=== PATIENT | female | born 1960 | race Caucasian/White ===

== ENCOUNTER 2022-10-04 11:17 | Inpatient (IN) | payer BC ==
[2022-10-04] VITALS (10 sets, daily range): BP systolic 102–137; BP diastolic 52–95
[~2022-10-04] VITALS: Ht 170.2 cm; Wt 146.3 kg
[2022-10-04] MEDS ORDERED: LEVOTHYROXINE137 MCG PO (12:13)
[2022-10-04] MEDS ORDERED: NAPROXEN500 MG PO (12:13)
[2022-10-04] MEDS ORDERED: VENTOLIN HFA18 GM INH (12:13)
[2022-10-04] MEDS ORDERED: PIOGLITAZONE HC45 MG PO (12:14)
[2022-10-04] MEDS ORDERED: TRELEGY ELLIPT1 EACH INH (12:15)
[2022-10-04] MEDS ORDERED: HYDROCHLOROTHIA25 MG PO (12:15)
[2022-10-04] MEDS ORDERED: ROSUVASTATIN CA20 MG PO (12:15)
[2022-10-04] MEDS ORDERED: PREGABALIN150 MG PO (12:15)
[2022-10-04] MEDS ORDERED: METFORMIN HCL1000 MG PO (12:16)
[2022-10-04] MEDS ORDERED: TRULICITY1.5 MG/0.5 SQ (12:16)
--- NOTE | 2022-10-04 21:33 | EKG ---
[facility] [address] [facility] [place] [address] Signed Atrial fibrillation with rapid ventricular response with premature ventricular or aberrantly conducted complexes Abnormal ECG No previous ECGs available Confirmed by Albina Hilliard MD () on 10/04/2022 9:32:54 PM Electronically Signed By: ALBINA HILLIARD MD 10/04/222132 PATIENT NAME: JENNA MACKENZIE MARTA Electrocardiogram DATE OF : 62 PHYSICIAN: ALBINA HILLIARD MD REPORT #: [id number] REPORT IS CONFIDENTIAL AND NOT TO BE RELEASED WITHOUT AUTHORIZATION
[2022-10-05] VITALS (17 sets, daily range): BP systolic 107–158; BP diastolic 51–92
[2022-10-06] VITALS (27 sets, daily range): BP systolic 121–162; BP diastolic 59–97
[2022-10-07] VITALS (11 sets, daily range): BP systolic 115–163; BP diastolic 58–104
[2022-10-08] VITALS (9 sets, daily range): BP systolic 103–141; BP diastolic 57–94
[2022-10-09] VITALS (8 sets, daily range): BP systolic 97–137; BP diastolic 53–99
--- NOTE | 2022-10-09 08:04 | CONS ---
[facility] [address] [place], [place] [address] Signed DATE OF CONSULTATION: REQUESTING PHYSICIAN: Dr. Fernandez. PROBLEM: Hematochezia related to hemorrhoids, recent anticoagulation (Eliquis). HISTORY: This is a quite morbidly obese (BMI 50.7) white woman, is on the hospitalist service. She presented initially on October 04, 2022, with symptoms concordant to congestive heart failure. She was admitted by Dr. Mike Michel. Her issue was shortness of breath. She had had worsening over the previous week. She has known history of COPD and has 4 L nasal cannula oxygen requirement at all times at home. She has been in intensive care unit for her management thus far. Care was over taken by Dr. Fernandez on October 06. She was noted to have occasional tachyarrhythmias, anxiety, difficulty breathing, and desaturations. She had a low-normal ejection fraction of 55%, minimal valvular disease and minimal pulmonary hypertension. She has improved overall since admission. She was initiated on Eliquis, blood thinner, for underlying atrial fibrillation. She has had episodic rectal bleeding prior to this, but had significant hematochezia since initiation of the Eliquis. Consultation is undertaken on the basis of findings of prolapsing hemorrhoids and rectal bleeding. The patient has no evidence of hypotension related to bleeding. It has certainly been significant thus far. She was previously on Lovenox. Transfusion has been outlined to be undertaken as her hematocrit is 24.5. Her platelet count is normal at 207,000. She has no certain family history of colon cancer; she underwent colonoscopy in [place] several years ago and was said to have had 7 polyps at that time. She has had no hematemesis, it is noted. Concern has been maintained as to the significance of her hemorrhoids and management of them as regard to rectal bleeding. REVIEW OF SYSTEMS: She denies any current pain on defecation nor with wiping. Does have some discomfort, she notes. She has no abdominal pain. PHYSICAL EXAMINATION: A very morbidly obese white woman, who is pleasant, alert, and oriented. Heart rate is 112, atrial fibrillation is noted on monitor. Temperature is 98.1. Blood pressure 103/88. She shows no evidence of overt shortness of breath at this time. No tachypnea. Electronically Signed By: EVELINE GAN MD 10/09/22 0804 PATIENT NAME: JENNA MACKENZIE MARTA CONSULTATION DATE OF : 62 REPORT #: [id number] PHYSICIAN: EVELINE GAN MD PCP: LUANA YOUNG MD REPORT IS CONFIDENTIAL AND NOT TO BE RELEASED WITHOUT AUTHORIZATION [facility] [address] [place], [place] [address] Signed Abdomen is quite obese. In the lateral decubitus position with left side down, examination of perineum shows prolapsing hemorrhoidal tissue. The most obvious plexus with likely bleeding is a posterolateral hemorrhoidal complex. With steady pressure, reduction of her hemorrhoidal tissue was undertaken, which was mildly uncomfortable but ultimately tolerated well. Her current lab studies show a white count of 6.3, hematocrit 24.5, platelets 207,000. Her admission hematocrit was 28.7. ASSESSMENT: The patient has hematochezia likely related to prolapsing, ulcerated hemorrhoidal disease. She clearly has had polyps in the past on colonoscopy a few years ago. The possibility of a more proximal lesion accounting for hematochezia must be considered. I have advised Dr. Fernandez to discontinue her Eliquis anticoagulation for the time being. Ultimately, hemorrhoidal resection would be beneficial to allow for chronic anticoagulation related to her atrial fibrillation. In the meantime, however, avoidance of exsanguination from anticoagulation and hemorrhoidal bleeding would be more appropriate. Consideration will be made for colonoscopy and if negative, proceeding to hemorrhoidectomy in the near future. For the time being, we will withhold Eliquis and other anticoagulants. She will proceed with transfusion as planned. Within 3 days, the effect of Eliquis should be abated enough that intervention could be undertaken. This would include possibly colonoscopy before that time and operative hemorrhoidectomy after that timeframe. Discussed with her in detail. I believe that she would be reasonably be well served by a regional anesthetic rather than general anesthesia considering her underlying comorbidities of CHF and morbid obesity. Eveline Gan MD JM/MODL /[id number] cc: Trae Fernandez MD Electronically Signed By: EVELINE GAN MD 10/09/22 0804 PATIENT NAME: JENNA MACKENZIE MARTA CONSULTATION DATE OF : 62 REPORT #: [id number] PHYSICIAN: EVELINE GAN MD PCP: LUANA YOUNG MD REPORT IS CONFIDENTIAL AND NOT TO BE RELEASED WITHOUT AUTHORIZATION [address] [address] Signed Luana Young MD Copies: TRAE FERNANDEZ MD ~ Electronically Signed By: EVELINE GAN MD 10/09/22 0804 PATIENT NAME: JENNA MACKENZIE MARTA CONSULTATION DATE OF : 62 REPORT #: [id number] PHYSICIAN: EVELINE GAN MD PCP: LUANA YOUNG MD REPORT IS CONFIDENTIAL AND NOT TO BE RELEASED WITHOUT AUTHORIZATION
[2022-10-10 04:00] VITALS: BP 143/90
[2022-10-10 07:46] VITALS: BP 134/64
[2022-10-10 12:15] VITALS: BP 125/87
[2022-10-10 16:14] VITALS: BP 141/69
[2022-10-10 23:51] VITALS: BP 118/67
[2022-10-11 03:03] VITALS: BP 106/56
[2022-10-11 11:59] VITALS: BP 121/62
[2022-10-11 13:54] VITALS: BP 126/67
[2022-10-11 16:35] VITALS: BP 137/68
[2022-10-11 17:31] VITALS: BP 132/63
[2022-10-11 21:12] VITALS: BP 118/66
[2022-10-12 05:35] VITALS: BP 127/84
[2022-10-12 09:16] VITALS: BP 110/65
--- NOTE | 2022-10-12 10:23 | OR ---
[facility] [address] [place], [place] [address] Signed DATE OF OPERATION: 10/11/2022 SURGEON: Eveline Gan MD PREOPERATIVE DIAGNOSES: 1. Recent hematochezia secondary to grade 4 hemorrhoidal disease. 2. History of polyps of colon. 3. Recent admission to hospital related to atrial fibrillation with rapid ventricular response and long-standing home oxygen (4 L nasal cannula) requirement. POSTOPERATIVE DIAGNOSES: 1. Diverticulosis. 2. Polyps x2. 3. Grade 4 hemorrhoidal disease. PROCEDURE: Total colonoscopy to the cecum with cold morcellation polypectomy x2. ANESTHESIA: Intravenous sedation, propofol infusion, Ravindra Mata CRNA. INDICATION: This quite morbidly obese 61-year-old white woman presented to the emergency room and was evaluated and admitted on October 04, 2022 with acute hypoxic respiratory failure related to [id number] diastolic congestive heart failure. She has home oxygen requirement of 4 L nasal cannula. She was started on Eliquis as part of her atrial fibrillation treatment and had rather significant hematochezia. She was found to have hemorrhoidal disease. She was discontinued on her Eliquis and her Eliquis effect has presumably abated over the past two days. She is now to undergo colonoscopy to better characterize the more proximal colon, mindful that her bleeding was most likely related to grade 4 hemorrhoidal problems. The risk of bleeding, infection, anesthetic complications and so forth were reviewed with her, she understands and wished to proceed. FINDINGS: The prep was quite excellent. Complete colonoscopy was undertaken of the cecum without question. She had scattered diverticula of the sigmoid and left colon. There were two small polyps, possibly hyperplastic, both excised, one in the sigmoid and one in the rectosigmoid. Retroflexed view and direct examination did show grade 4 hemorrhoidal disease without active bleeding at this time. Electronically Signed By: EVELINE GAN MD 10/12/22 1023 PATIENT NAME: JENNA MACKENZIE OPERATIVE REPORT DATE OF : 62 REPORT #: [id number] PHYSICIAN: EVELINE GAN MD PCP: KIERAN YOUNG MD REPORT IS CONFIDENTIAL AND NOT TO BE RELEASED WITHOUT AUTHORIZATION [facility] [address] [place], [place] [address] Signed DESCRIPTION OF PROCEDURE: The patient was brought to the endoscopy suite and placed in the lateral decubitus position, given intravenous sedation with propofol infusional technique with full cardiopulmonary monitoring. Great care was taken given her underlying multiple significant comorbidities. Digital rectal examination showed good reduction of previously prolapsed hemorrhoidal disease. An Olympus video colonoscope was passed in the rectum and manipulated throughout the colon ultimately intubating the cecum itself. The ileocecal valve and appendiceal orifice were normal. The scope was withdrawn from that point and examination showed scattered diverticula throughout the colon and in the sigmoid, a small adenomatous appearing polyp, which was excised with cold morcellation technique. Additional withdrawal showed another in the rectosigmoid a similar type also excised. Retroflexed view of the rectum showed quite obvious internal hemorrhoidal disease, no doubt the source of her hematochezia recently. Careful withdrawal of scope through the anal canal confirmed these findings. There was no sign of active bleeding at this time, no rectal neoplasm proper. The scope was removed and the patient was taken to the recovery room in good condition. CONCLUDING DIAGNOSIS: We have affirmed that the bleeding is all certainly related to hemorrhoidal disease, not the diverticula or the small polyps. PLAN: Proceed to hemorrhoidectomy is anticipated. She is still clearing the effects of Eliquis, though she has been off for two doses at this point. MD ILIANA Velasco/MODL /[id number] cc: MD Dr. Keira Simmons Electronically Signed By: EVELINE GAN MD 10/12/22 1023 PATIENT NAME: JENNA MACKENZIE [facility] OPERATIVE REPORT DATE OF : 62 REPORT #: [id number] PHYSICIAN: EVELINE GAN MD PCP: KIERAN YOUNG MD REPORT IS CONFIDENTIAL AND NOT TO BE RELEASED WITHOUT AUTHORIZATION [facility] [address] [facility] [place] [address] Signed Copies: TRAE MAIN MD ~ Electronically Signed By: EVELINE GAN MD 10/12/22 1023 PATIENT NAME: JENNA MACKENZIE MARTA OPERATIVE REPORT DATE OF : 62 REPORT #: [id number] PHYSICIAN: EVELINE GAN MD PCP: KIERAN YOUNG MD REPORT IS CONFIDENTIAL AND NOT TO BE RELEASED WITHOUT AUTHORIZATION
[2022-10-12 14:09] VITALS: BP 126/57
--- NOTE | 2022-10-12 17:01 | PATH ---
[facility] [address] [place], [place] [address] Signed SPECIMEN(S): A SIGMOID POLYPS SPECIMEN SOURCE: A. SIGMOID POLYPS CLINICAL HISTORY: Postop: Polyps x 2, diverticulosis, grade 4 hemorrhoid . CHF exacerbation, AFib with RVR. FINAL PATHOLOGIC DIAGNOSIS: Sigmoid polyps: - Hyperplastic polyps (multiple fragments). JVR:mfr:C2NR MICROSCOPIC EXAMINATION: Histologic sections of all submitted blocks are examined by light microscopy. These findings, together with the gross examination, support the pathologic diagnosis. GROSS DESCRIPTION: The specimen, labeled and designated "Cifuentes, sigmoid polyp," is received in formalin and consists of five muñoz soft tissue fragments, ranging from 0.2-0.3 cm. Entirely submitted in (A1). VB (under the direct supervision of a pathologist) The Gross Description was prepared using a voice recognition system. The report was reviewed for accuracy; however, sound-alike word errors, addition and/or deletions may occur. If there is any question about this report, please contact Client Services. PERFORMING LABORATORY: The technical component was performed by [facility], [address] [place] [id number] (CLIA# [id number]). Professional interpretation was performed by [facility], [address] [place] [phone] (CLIA#: [id number]). Diagnostician: Loyd Blanchard MD Pathologist Electronically Signed 10/12/2022 PATIENT NAME: JENNA CIFUENTES PATHOLOGY DATE OF : 62 REPORT #: [id number] PHYSICIAN: BELKYS BAEZ PCP: KIERAN YOUNG MD REPORT IS CONFIDENTIAL AND NOT TO BE RELEASED WITHOUT AUTHORIZATION
[2022-10-12 18:09] VITALS: BP 108/72
[2022-10-12 20:55] VITALS: BP 143/72
[2022-10-13] VITALS (7 sets, daily range): BP systolic 104–141; BP diastolic 50–85
[2022-10-14] VITALS (7 sets, daily range): BP systolic 92–117; BP diastolic 50–74
[2022-10-15 05:43] VITALS: BP 130/59
[2022-10-15] MEDS ORDERED: METOPROLOL SUCC25 MG PO (07:47)
[2022-10-15] MEDS ORDERED: DILTIAZEM 24HR120 MG PO (07:48)
[2022-10-15] MEDS ORDERED: POTASSIUM CHLO20 ME1 PO (07:52)
[2022-10-15] MEDS ORDERED: OXYCODONE HCL5 MG PO (07:52)
[2022-10-15 09:04] VITALS: BP 112/80
[2022-10-15 09:09] VITALS: BP 112/80
[2022-10-15] MEDS ORDERED: TORSEMIDE20 MG PO (15:00)
--- NOTE | 2022-10-16 14:55 | OR ---
[facility] [address] [place], [place] [address] Signed DATE OF OPERATION: 10/13/2022 SURGEON: Eveline Gan MD PREOPERATIVE DIAGNOSES: 1. Super morbid obesity, general debility. 2. Atrial fibrillation with congestive heart failure and recent Eliquis anticoagulation. 3. Severe hemorrhoidal bleeding related to internal and external hemorrhoidal disease. POSTOPERATIVE DIAGNOSES: 1. Super morbid obesity, general debility. 2. Atrial fibrillation with congestive heart failure and recent Eliquis anticoagulation. 3. Severe hemorrhoidal bleeding related to internal and external hemorrhoidal disease. PROCEDURE: Hemorrhoidectomy extensive with internal and external components prolonged, complicated and difficult. ANESTHESIA: Saddle block with IV sedation, Ravindra Mata CRNA and local 10 mL of 0.25% Marcaine with epinephrine. Position of bed, lateral decubitus, left side down. INDICATION: This 61-year-old white woman presented on October 04, 2022 with atrial fibrillation with rapid ventricular response, congestive heart failure, pulmonary edema problems and numerous other related issues. She is quite morbidly obese with massive abdominal pannus. She was begun on Eliquis as part of her anticoagulation program and had rather severe hematochezia with hematocrit as low as 23. She was noted to have extensive hemorrhoidal disease. Eliquis was discontinued with that in mind anticipating probable hemorrhoidectomy to allow for anticoagulation in the future. Since withdrawal of her Eliquis, she has not had bleeding. Care has been taken to reduce her significantly prolapsing internal and external hemorrhoidal disease. A colonoscopy was performed by me 2 days ago, having been off her Eliquis for 2 days, which showed no lesion proximal that would account for her significant hematochezia. She is now to undergo hemorrhoidectomy. She understands the risk of bleeding, infection, postoperative pain, which can be significant and of course variable degrees of incontinence, which is quite unlikely. Understanding that she wished to proceed. Electronically Signed By: EVELINE GAN MD 10/16/22 1455 PATIENT NAME: JENNA MACKENZIE OPERATIVE REPORT DATE OF : 62 REPORT #: [id number] PHYSICIAN: EVELINE GAN MD PCP: KIERAN YOUNG MD REPORT IS CONFIDENTIAL AND NOT TO BE RELEASED WITHOUT AUTHORIZATION [facility] [address] [place], [place] [address] Signed FINDINGS: Classic left lateral, right anterior and right posterior hemorrhoidal complexes were noted. They were excoriated and no doubt the source of her bleeding. Complete excision was undertaken with good result. Procedure was prolonged, complicated, and difficult in part related to body position for operation (left lateral decubitus) but was accomplished safely. DESCRIPTION OF PROCEDURE: The patient was brought to the operating room after undergoing saddle block anesthetic in an upright position. She was placed in the left lateral decubitus position (left side down). Preoperative antibiotic Ancef and Flagyl had been given. A full bowel prep had been undertaken 48 hours ago. Careful padding of all pressure points was undertaken in support of her massive abdominal pannus also undertaken. The buttocks were taped open and noted was significant prolapsing hemorrhoidal disease with excoriation, but no sign of active bleeding. Photographs were taken. The perineum and the anorectal area was prepared with a Betadine based solution and draped sterilely. Initial attention was to my examination, which showed a left lateral, right posterior, right anterior hemorrhoidal complex, which were brought extensively and included both internal and external components. Hemorrhoidectomy was begun on the left lateral aspect 1st. Anal retractor was placed and Cheung clamp applied to the external portion of the very large hemorrhoidal complex. A 2-0 chromic on a UR needle was placed approximately at the root of the hemorrhoid. Using electrocautery, wide resection was undertaken with redundant skin and hemorrhoidal pains. Meticulous care was maintained to avoid any interruption of internal sphincter or external sphincter muscle. The base was secured with the previously applied chromic tie and the mucosa was approximated with a running chromic suture. A space was left open externally to allow for drainage as necessary. Small accessory hemorrhoidal tissue was excised in continuity at that time with suture ligation or cautery of those multiple networks of hemorrhoidal vessels. With similar technique, the right anterior and right posterior hemorrhoidal bundles were excised. Application of Tisseel was applied in the internal aspect, though there was good hemostasis already. A 10 mL of 0.25% Marcaine with epinephrine was injected as well for postoperative analgesic benefit. A Gel-Foam was rolled and bacitracin applied and placed into the anal canal to further allow for tamponade and bleeding control. A peripad was applied. She was then returned to the supine position and transferred to the regular stretcher in good condition. Blood loss was less than 100 mL. Sponge, needle and instrument counts were reported as correct x3. The operation was prolonged, Electronically Signed By: EVELINE GAN MD 10/16/22 1455 PATIENT NAME: JENNA MACKENZIE OPERATIVE REPORT DATE OF : 62 REPORT #: [id number] PHYSICIAN: EVELINE GAN MD PCP: KIERAN YOUNG MD REPORT IS CONFIDENTIAL AND NOT TO BE RELEASED WITHOUT AUTHORIZATION [facility] [address] [place] [address] Signed complicated, and difficult on the basis of her obesity, the positioning that was required based on her obesity considerations but was accomplished safely. MD ILIANA Velasco/[place] /[id number] cc: MD Mike Carlton MD Dr. Emily Jack Dr. Collins Copies: TRAE MAIN MD ~ Electronically Signed By: EVELINE GAN MD 10/16/22 1455 PATIENT NAME: JENNA MACKENZIE MARTA OPERATIVE REPORT DATE OF : 62 REPORT #: [id number] PHYSICIAN: EVELINE GAN MD PCP: KIERAN YOUNG MD REPORT IS CONFIDENTIAL AND NOT TO BE RELEASED WITHOUT AUTHORIZATION
--- NOTE | 2022-10-17 11:36 | PATH ---
[facility] [address] [place], [place] [address] Signed SPECIMEN(S): A LT LATERAL HEMORRHOIDAL COMPLEX SPECIMEN(S): B RT ANTERIOR HEMORRHOIDAL COMPLEX SPECIMEN(S): C RT POST HEMORRHOIDAL COMPLEX SPECIMEN SOURCE: A. LT LATERAL HEMORRHOIDAL COMPLEX B. RT ANTERIOR HEMORRHOIDAL COMPLEX C. RT POST HEMORRHOIDAL COMPLEX CLINICAL HISTORY: Hemorrhoids. FINAL PATHOLOGIC DIAGNOSIS: A. Left lateral hemorrhoidal complex: - Benign polypoid anal and rectal-type mucosa with stromal dilated hemorrhoidal vasculature. B. Right anterior hemorrhoidal complex: - Benign polypoid anal and rectal-type mucosa with stromal dilated hemorrhoidal vasculature. C. Right posterior hemorrhoidal complex: - Benign polypoid anal and rectal-type mucosa with stromal dilated hemorrhoidal vasculature. JVR:sm:C2NR MICROSCOPIC EXAMINATION: Histologic sections of all submitted blocks are examined by light microscopy. These findings, together with the gross examination, support the pathologic diagnosis. GROSS DESCRIPTION: A. The specimen, labeled and designated "Esau, left lateral hemorrhoidal complex," is received in formalin and consists of irregular shaped mucosal and skin tissue that measures 6.0 x 1.7 x 1.5 cm. Sectioning through the specimen reveals dark red, congested submucosal and subcutaneous tissue. Auditing Control Clerk sections are submitted in (A1). B. The specimen, labeled and designated "Esau, right anterior hemorrhoidal complex," is received in formalin and consists of irregular shaped skin and mucosal tissue that measures 3.0 x 2.2 x 1.9 cm. Sectioning through the specimen reveals dark red, congested submucosal and subcutaneous tissue. Auditing Control Clerk sections are submitted in (B1). C. The specimen, labeled and designated "Esau, right posterior PATIENT NAME: JENNA MACKENZIE PATHOLOGY DATE OF : 62 REPORT #: [id number] PHYSICIAN: BELKYS PATHOLOGY PCP: KIERAN YOUNG MD REPORT IS CONFIDENTIAL AND NOT TO BE RELEASED WITHOUT AUTHORIZATION [facility] [address] [place], [place] [address] Signed hemorrhoidal complex," is received in formalin and consists of irregular shaped mucosal and skin tissue that measures 3.5 x 1.4 x 1.2 cm. Sectioning through the specimen reveals pink-muñoz, focally congested subcutaneous and submucosal tissue. Auditing Control Clerk sections are submitted in (C1). JS (under the direct supervision of a pathologist) The Gross Description was prepared using a voice recognition system. The report was reviewed for accuracy; however, sound-alike word errors, addition and/or deletions may occur. If there is any question about this report, please contact Client Services. PERFORMING LABORATORY: The technical component was performed by [facility], [address] [place] [id number] (CLIA# [id number]). Professional interpretation was performed by [facility], [address] [place] [id number] (CLIA#: [id number]). Diagnostician: Loyd Blanchard MD Pathologist Electronically Signed 10/17/2022 Copies: ~ PATIENT NAME: JENNA MACKENZIE PATHOLOGY DATE OF : 62 REPORT #: [id number] PHYSICIAN: BELKYS PATHOLOGY PCP: KIERAN YOUNG MD REPORT IS CONFIDENTIAL AND NOT TO BE RELEASED WITHOUT AUTHORIZATION
== END 2022-10-15 16:25 | disposition home health service (06) | DRG 987 ==
LOC: ED 11:17 → MS 16:42 → CCU 16:42 → MS 16:42
PROVIDERS: Surgery; ADMIT Family Medicine; ATTEND Family Medicine
PROC: 0DBN8ZX Excision of Sigmoid Colon, Via Natural or Artificial Opening Endoscopic, Diagnostic (ICD-10-PCS; 2022-10-11)
PROC: 30233N1 Transfusion of Nonautologous Red Blood Cells into Peripheral Vein, Percutaneous Approach (ICD-10-PCS; principal; 2022-10-11 12:15)
PROC: 06BY0ZC Excision of Hemorrhoidal Plexus, Open Approach (ICD-10-PCS; 2022-10-13)
DX: I11.0 Hypertensive heart disease with heart failure (principal); I50.33 Acute on chronic diastolic (congestive) heart failure; J96.01 Acute respiratory failure with hypoxia; J90 Pleural effusion, not elsewhere classified; D62 Acute posthemorrhagic anemia; K92.1 Melena; Z68.43 Body mass index [BMI] 50.0-59.9, adult; K63.5 Polyp of colon; K57.30 Diverticulosis of large intestine without perforation or abscess without bleeding; K64.3 Fourth degree hemorrhoids; I48.91 Unspecified atrial fibrillation; E87.6 Hypokalemia; J44.9 Chronic obstructive pulmonary disease, unspecified; E66.01 Morbid (severe) obesity due to excess calories; E78.00 Pure hypercholesterolemia, unspecified; S81.801A Unspecified open wound, right lower leg, initial encounter; E80.6 Other disorders of bilirubin metabolism; R00.0 Tachycardia, unspecified; G47.30 Sleep apnea, unspecified; E03.9 Hypothyroidism, unspecified; E11.9 Type 2 diabetes mellitus without complications; K64.4 Residual hemorrhoidal skin tags; Z99.81 Dependence on supplemental oxygen; Z87.891 Personal history of nicotine dependence; Z98.890 Other specified postprocedural states; Z90.49 Acquired absence of other specified parts of digestive tract; Z98.891 History of uterine scar from previous surgery; Z88.0 Allergy status to penicillin; Z88.8 Allergy status to other drugs, medicaments and biological substances; Z79.890 Hormone replacement therapy; Z79.4 Long term (current) use of insulin; Z79.01 Long term (current) use of anticoagulants; Z79.899 Other long term (current) drug therapy
CPT/HCPCS: 00811; 00902; 36415; 71045; 80048; 80053; 83735; 83880; 84100; 84443; 84484; 85025; 85060; 85379; 85610; 86850; 86900; 86901; 86922; 93005; 93010; 93306; 94640; 94760; 94762; 96374; 96375; 97110; 97162; 99285-25; A9270; A9270-GY; J0690; J1650; J1815; J1940; J2001; J2270; J2704; J3010; J3480; J3490; J7060

== ENCOUNTER 2022-11-28 11:21 | Inpatient (IN) | payer BC ==
[~2022-11-28] VITALS: Ht 170.2 cm; Wt 136.4 kg
--- OUTSIDE RECORDS SUMMARY | ~2022-11-28 | XMS | Continuity of Care Document ---
Demographics + + + | Address | [address] | | | [place] [address] | + + + | Preferred Language | Unknown | + + + | Marital Status | | + + + | Tenriism Affiliation | Unknown | + + + | Race | White | + + + | Ethnic Group | Not or | + + + Author + + + | Author | [place] | + + + | Organization | [place] | + + + | Address | [address] | | | [place] [address] | + + + | Phone | | + + + Care Team Providers + + + + | Care Band Booker Name | Role | Phone | + [...] 2022-10-15 00:00 | No vaccine administered | [facility] | + + + + Medications + + + + | date | description | facility | + + + + | 2022-10-15 00:00 | OXYCODONE HCL | [facility] | + + + + | 2022-10-15 00:00 | oxycodone hydrochloride 5 | [facility] | | | MG Oral Tablet | | + + + + | 2022-10-15 00:00 | 0.5 ML dulaglutide 3 MG/ML | [facility] | | | Auto-Injector [Trulicity] | | + + + + | 2022-10-27 00:00 | DULAGLUTIDE | [facility] | + + + + | 2022-10-15 00:00 | Microencapsulated | [facility] | | | potassium chloride 20 MEQ | | | | Extended Release | | + + + + | 2022-10-15 00:00 | POTASSIUM CHLORIDE | [facility] | + + + + | 2022-10-15 00:00 | 30 ACTUAT fluticasone | [facility] | | | furoate 0.1 MG/ACTUAT / | | | | umeclidinium 0 | | + + + + | 2022-10-27 00:00 | | [facility] | | | Fluticasone/Umeclidin/Vilan | | | | ter | | + + + + | 2021-09-27 00:00 | lisinopril 20 mg / | [facility] | | | hydrochlorothiazide 25 mg | [facility]iop[facility] | | | oral tablet | | + + + + | 2022-10-27 00:00 | NAPROXEN | [facility] | + + + + | 2022-10-15 00:00 | naproxen 500 MG Oral | [facility] | | | Tablet | | + + + + | 2022-10-15 00:00 | TORSEMIDE | [facility] | + + + + | 2022-10-15 00:00 | torsemide 20 MG Oral | [facility] | | | Tablet | | + + + + | 2022-10-27 00:00 | MAGNESIUM OXIDE | [facility] | + + + + | [...] + | 2022-10-27 00:00 | HYDROCHLOROTHIAZIDE | [facility] | + + + + | 2022-10-15 00:00 | hydrochlorothiazide 25 MG | [facility] | | | Oral Tablet | | + + + + | 2022-10-27 00:00 | PIOGLITAZONE HCL | [facility] | + + + + | 2022-10-15 00:00 | pioglitazone 45 MG Oral | [facility] | | | Tablet | | + + + + | 2022-10-27 00:00 | Pregabalin | [facility] | + + + + | 2022-10-15 00:00 | pregabalin 150 MG Oral | [facility] | | | Capsule | | + + + + | 2022-10-15 00:00 | 24 HR diltiazem | [facility] | | | hydrochloride 120 MG | | | | Extended Release Oral C | | + + + + | 2022-10-15 00:00 | DILTIAZEM HCL | [facility] | + + + + | 2022-10-27 00:00 | ALBUTEROL SULFATE | [facility] | + + + + | 2022-10-15 00:00 | [id number] 200 ACTUAT | [facility] | | | albuterol 0.09 MG/ACTUAT | | | | Metered Dose I | | + + + + | 2022-10-27 00:00 | Rosuvastatin Calcium | [facility] | + + + + | 2022-10-15 00:00 | rosuvastatin calcium 20 MG | [facility] | | | Oral Tablet | | + + + + | 2022-10-27 00:00 | METFORMIN HCL | [facility] | + + + + | 2022-10-15 00:00 | metformin hydrochloride | [facility] | | | 1000 MG Oral Tablet | | + + + + | 2021-09-27 00:00 | metformin hydrochloride | [facility] | | | 1000 mg oral tablet | Cardiopulmonary | + + + + | 2022-10-15 00:00 | 24 HR metoprolol succinate | [facility] | | | 25 MG Extended Release | | | | Oral Table | | + + + + | 2022-10-15 00:00 | METOPROLOL SUCCINATE | [facility] | + + + + | 2022-10-27 00:00 | LEVOTHYROXINE SODIUM | [facility] | + + + + | 2022-10-15 00:00 | levothyroxine sodium 0.137 | [facility] | | | MG Oral Tablet [...] 2022-10-04 00:00 | Atrial fibrillation with | [facility] | | | rapid ventricular response | | + + + + | 2022-10-04 00:00 | Pleural effusion | [facility] | + + + + [...] of the | [facility] | | | dhruvura ([id number]) | | + + + + [...] + + + | 2022-10-04 16:42 | CARE HOME (CURRENT) USE OF | [facility] | | | ANTICOAGULANTS | | + + + + | 2022-10-04 16:42 | CARE HOME (CURRENT) USE OF | [facility] | | | INSULIN | | + + + + | 2022-10-04 16:42 | HORMONE REPLACEMENT | [facility] | | | THERAPY | | + + + + | 2022-10-04 16:42 | OTHER CARE HOME (CURRENT) | [facility] | | | [...] | 2022-10-25 00:00 | Morbid obesity | [facility] | + + + + | 2022-10-25 00:00 | Acute diastolic congestive | [facility] | | | heart failure | | + + + + | 2022-10-25 00:00 | Acute respiratory failure | [facility] | | | with hypercapnia | [...] + + + | 2022-10-25 13:36 | FOOD AND BEVERAGE DIRECTOR (CURRENT) USE OF | [facility] | | | ANTICOAGULANTS | | + + + + | 2022-10-25 13:36 | CARE HOME (CURRENT) USE OF | [facility] | | | INSULIN | | + + + + | 2022-10-25 13:36 | HORMONE REPLACEMENT | [facility] | | | THERAPY | | + + + + | 2022-10-25 13:36 | OTHER CARE HOME (CURRENT) | [facility] | | | [...] HYPOXIA | | + + + + Procedures + + + + | date | description | facility | + + + + | 2022-10-13 00:00 | EXCISION OF HEMORRHOIDAL | [facility] | | | PLEXUS, OPEN APPROACH | | + + + + | 2022-10-11 00:00 | EXCISION OF SIGMOID COLON, | [facility] | | | ENDO, DIAGN | | + + + + | 2022-10-13 00:00 | Hemorrhoidectomy | [facility] | + + + + | 2022-10-11 00:00 | TRANSFUSE NONAUT RED BLOOD | [facility] | | | CELLS IN PERIPH VEIN, PERC | | | | | | + + + + | 2022-10-11 00:00 | Colonoscopy with biopsy of | [facility] | | | colon | | + + + + | 2021-06-22 00:00 | PFT COMPLETE 1 | [facility] | | | (PRE-POST+DLCO+TLC) | Cardiopulmonary [...] | | (unavailable | | [facility] | [phone] | | | | ) | | [facility] | [id number] | | | + + + + + + + + + | Result panel 4 | + + + + + + + + + | | (no date) | [facility] | | (missing) | (missing) | | (unavailable | | [facility] | [id number] | | | | ) | | [...] | (unavailable | 09:27:07 | [facility] | LAB | | | [...] + + +-------+---------+ + + + | Immediate spin crossmatch [...] 00:00 | Unknown if ever smoked | [facility] | + + + + | 2022-10-27 00:00 | Unknown if ever smoked | [facility] | + + + + Vital [...]
[~2022-11-28 11:21] MED LIST: DILTIAZEM 24HR120 MG PO; HYDROCHLOROTHIA25 MG PO; LEVOTHYROXINE137 MCG PO; MAG-OXIDE400 MG PO; METFORMIN HCL1000 MG PO; METOPROLOL SUCC25 MG PO; NAPROXEN500 MG PO; OXYCODONE HCL5 MG PO; PIOGLITAZONE HC45 MG PO; POTASSIUM CHLO20 ME1 PO; PREGABALIN150 MG PO; ROSUVASTATIN CA20 MG PO; TORSEMIDE20 MG PO; TRELEGY ELLIPT1 EACH INH; TRULICITY1.5 MG/0.5 SUB-Q; VENTOLIN HFA18 GM INH
[2022-11-28] MEDS ORDERED: ELIQUIS5 MG PO (14:45)
[2022-11-28] MEDS ORDERED: NAPROXEN500 MG PO (14:47)
--- NOTE | 2022-11-28 14:48 | NUR ---
MED REC COMPLETE
[2022-11-28 15:00] VITALS: BP 133/81
--- NOTE | 2022-11-28 15:44 | NUR ---
SITTING UP IN BED. ALERT AND ORIENTED. STATES SHE LIVES IN A 1 STORY HOME WITH SPOUSE, ROVERTO. THERE IS A VERY SMALL SINGLE STEP INTO THE HOME WHICH SHE HAS NO DIFFICULTIES STEPPING OVER. STATES SHE CONTINUES ON OXYGEN AT HOME, USING [employer] SUP[employer]. STATES SHE IS STILL ABLE TO DRIVE, BUT , ROVERTO, DOES A MAJORITY OF THE DRIVING FOR HER. STATES MONEY IS TIGHT BUT THEY ARE "GETTTING BY." STATES SHE DOES HAVE A SHOWER CHAIR AND A WALKER SHE IS ABLE TO USE AND CAN NOT THINK OF ANY NEEDS SHE MAY HAVE AT HOME PRIOR TO DC FROM FACILITY BUT WILL NOTIFY CASE MANAGEMENT IF SHE DOES THINK OF ANYTHING.
--- NOTE | 2022-11-28 15:52 | NUR ---
PT TO FLOOR VIA STRETCHER WITH AMA PATEL. PT ABLE TO TRANSFER TO BED ON OWN. UP TO BSC SEVERAL TIMES DUE TO LASIX. NEEDS ASSIST WIPING. ON HER CHRONIC 4LNC
--- NOTE | 2022-11-28 17:16 | NUR ---
PATIENT GIVEN 5 UNITS OF INSULIN FOR BG OF 272. PATIENT IS EATING DINNER. RIGHT ARM IV WRAPPED WITH COBAN, PER PATIENT REQUEST.
--- NOTE | 2022-11-28 17:17 | NUR ---
PT CALLED FOR ASSISTANCE TO THE BSC. PT ABLE TO TX INDEPENDENTLY FROM BED TO COMMODE O2 MAINTAINED. THIS CUSTOMS AND IMMIGRATION OFFICER PERFOMED LUIS CARE FOR PT. PT DANGLE ON EDGE OF BED, CBG TAKEN. RN NOTIFED, DINNER TRAY SET UP. CALL LIGHT IN REACH. NO OTHER NEEDS AT THIS TIME.
[2022-11-28 18:10] VITALS: BP 128/57
--- NOTE | 2022-11-28 18:30 | NUR ---
VITALS/I&O'S TAKEN/DOCUMENTED. PT UP TO BSC STBY. BACK IN TO BED LAYING ON R SIDE, BED TURNED IN ROOM HOB TOWARDS WINDOW. 02 SUSTAINED WHILE UP. NEW DIET 7-UP/ICE, PT REQUESTED FAN WHICH WAS SET UP AT END OF BED. CALL LIGHT IN REACH.
--- NOTE | 2022-11-28 18:55 | NUR ---
PT SITTING UP ON SIDE OF BED WATCHING TV. TALKED TO HIM FOR AWHILE. STATES HE FEELS BETTER THAN HE HAS IN AWHILE. DENIES CONCERNS AND HOPES TO GO HOME TOMORROW MORNING.
--- NOTE | 2022-11-28 18:55 | NUR ---
Pt resting comfortably in bed. Breathing even and unlabored. No needs expressed at this time. Bed in lowest position with wheels locked. Call light within reach.
--- NOTE | 2022-11-28 19:40 | NUR ---
REPORT RECEIVED FROM DAY SHIFT RN. PT RESTING IN BED. SAFETY PRECAUTIONS MAINTAINED. CALL LIGHT WITHIN REACH. WILL CONTINUE TO MONITOR.
--- NOTE | 2022-11-28 19:44 | NUR ---
CALL LIGHT ANSWERED. SBA TO BEDSIDE COMMODE. LUIS CARE ASSISTED. PATIENT IS BACK IN BED. DENIES FURTHER NEEDS AT THIS TIME.
--- NOTE | 2022-11-28 20:30 | NUR ---
PT ASSESSED. MEDS GIVEN. VS TAKEN AND WITHIN NORMAL LIMITS. PT SITTING COMFORTABLY IN BED IN NO ACUTE DISTRESS. CPAP AT BEDSIDE. SAFETY PRECAUTIONS MAINTAINED. CALL LIGHT WITHIN REACH. WILL CONTINUE TO MONITOR.
[2022-11-28 20:47] VITALS: BP 114/57
--- NOTE | 2022-11-28 21:15 | NUR ---
sba to bedside commode. brenda wipe assisted. patient is back in bed. small fan provided.
[2022-11-29 01:55] VITALS: BP 119/61
--- NOTE | 2022-11-29 02:05 | NUR ---
CALL LIGHT ANSWERED. SBA TO BEDSIDE COMMODE. LUIS WIPE DONE BY THIS MACHINE SIGN WRITER DUE TO PATIENT STATED SHE CAN'T REACH TO WIPE. PATIENT IS BACK IN BED. ICE WATER REFILLED.
[2022-11-29 05:27] VITALS: BP 144/83
--- NOTE | 2022-11-29 06:12 | NUR ---
PT RESTED WELL THROUGHOUT THE SHIFT. VSS. PT VOIDED WELL WITH AMBULATION TO BSC. PT WORE CPAP WHEN SLEEPING AND O2 AT 4L NC WHEN AWAKE WHICH IS PT'S BASELINE. WT OBTAINED THIS AM. SAFETY PRECAUTIONS MAINTAINED. CALL LIGHT WITHIN REACH. WILL CONTINUE TO MONITOR.
--- NOTE | 2022-11-29 06:14 | EKG ---
[facility] [address] [place], [place] [address] Signed Atrial fibrillation Abnormal ECG When compared with ECG of 25-OCT-2022 09:34, No significant change was found Confirmed by RIKI MCWILLIAMS MD ([id number]) on 11/29/2022 6:14:42 AM Electronically Signed By: RIKI MCWILLIAMS 11/29/2214 PATIENT NAME: JENNA MACKENZIE MARTA Electrocardiogram DATE OF : 62 PHYSICIAN: RIKI MCWILLIAMS REPORT #: [id number] REPORT IS CONFIDENTIAL AND NOT TO BE RELEASED WITHOUT AUTHORIZATION
--- NOTE | 2022-11-29 07:15 | NUR ---
BEDSIDE HANDOFF REPORT RECEIVED FROM WATER SYSTEM OPERATOR RN. PT SITTING ON EDGE OF BED, REQUESTING TO USE BATHROOM, SBA TO BATHROOM. PT REPORTS SOB WITH EXERTION, SLIGHTLY BETTER THAN YESTERDAY. PT REQUESTING 7 UP, SUGAR FREE PROVIDED. PT DENIES OTHER NEEDS AT THIS TIME.
[2022-11-29 09:15] VITALS: BP 138/74
--- NOTE | 2022-11-29 09:25 | NUR ---
PT ASSISTED TO BATHROOM AND THEN BACK TO BED. PT ON 4L NC CHRONIC, LUNG SOUNDS WITH FINE CRACKLES IN BLL, SOB WITH EXERTION. PT CONTINUES TO HAVE EDEMA IN BLE, 2+, CMS INTACT. PT GIVEN 5 UNITS SS HUMALOG FOR BG 260, TOLERATING DIET. PT TACYCARDIC, HR 110-130 , HX AFIB, MORNING CARDIAC MEDICATIONS GIVEN, WILL REASSESS HR. DISCUSSED PLAN OF CARE FOR THE DAY, PT DENIES OTHER NEEDS AT THIS TIME.
--- NOTE | 2022-11-29 09:44 | NUR ---
SPOKE TO PATIENT ABOUT THE DISCHARGE PLAN. PATIENT PLANS TO GO HOME WITH HER . PATIENT STATES HER IS VERY HELPFUL WITH THE PATIENT'S ADLS.
--- NOTE | 2022-11-29 10:05 | NUR ---
SPOT CHECKED PT PULSE, 133. RN NOTIFIED. WILL RECHECK IN 30 MINS
[2022-11-29 14:20] VITALS: BP 122/88
--- NOTE | 2022-11-29 15:26 | NUR ---
THIS AUDIT MACHINE OPERATOR ASSISTED PT WITH SHOWER. AMANDA COVERED, PT WAS ABLE TO AMBULATE W/FWW STBY ASSIST. STEADY ON FEET. 02 SET AT 3LNC WHILE SHOWERING. PT NEEDS MAX ASSIST W/PANIS/ LUIS AREA AND BOTTOM EXTREMITIES. HAIR WASHED INDEPENDENTLY. PT AMBULATED BACK TO BED, BRUSHED OWN HAIR, NEW GOWN, 02 & HR MAINTAINED STEADY THROUGHOUT CARES WITH RESTING POINTS. NYSTATIN POWDER APPLIED UNDER BREASTS, PAMIS & LUIS AREA. SMALL RED AREA ON R UPPER FOLD OF PANIS. RN NOTIFIED. BESIDE TABLE & CALL LIGHT IN REACH.
--- NOTE | 2022-11-29 17:39 | NUR ---
PT HAD UNEVENTFUL DAY. PT CONTINUES TO HAVE SOB WITH EXERTION BUT IS IMPROVING, REMAINS ON 4L NC CHRONIC, LUNG SOUNDS CLEAR. PT UP WITH SBA. PT TOLERATING 60G CARB DIET, ACCUCHECKS AND SS HUMALOG. PT TACHYCARDIC THIS AM BEFORE RECEIVING CARDIAC MEDICATIONS, IMPROVED.
[2022-11-29 17:57] VITALS: BP 114/74
--- NOTE | 2022-11-29 19:26 | NUR ---
PT RESTING COMFORTABLY IN BED. BREATHING EVEN AND UNLABORED. NC IN PLACE AT 4L. SAFETY PRECAUTIONS IN PLACE. NO NEEDS AT THIS TIME. WILL CONTINUE TO MONITOR.
[2022-11-29 20:52] VITALS: BP 122/74
[2022-11-30 04:47] VITALS: BP 116/61
--- NOTE | 2022-11-30 06:57 | NUR ---
PT ASSISTED TO BATHROOM WITH WALKER. PT SAFELY AMBULATING BACK TO BED WITH MINIMAL ASSISTANCE. SAFETY PRECAUTIONS IN PLACE. CALL LIGHT WITHIN REACH. NO OTHER NEEDS AT THIS TIME. WILL CONTINUE TO MONITOR.
--- NOTE | 2022-11-30 07:15 | NUR ---
RECEIVED REPORT FROM NINO SERRATO AND STEPHENIE SERRATO. ASSUMING CARE OF PT. PT SITTING UP IN BED IN ROOM. CALL LIGHT WITHIN REACH. PT DENIES NEEDS AT THIS TIME.
--- NOTE | 2022-11-30 08:15 | NUR ---
MORNING ASSESSMENT COMPLETED AND MEDICATION GIVEN. PT SITTING UP IN CHAIR IN ROOM. CALL LIGHT WITHIN REACH. PT IS ALERT AND ORIENTED. NO COMPLAINTS OF PAIN. LUNG SOUNDS DIMINISHED WITH SLIGHT CRACKLES NOTED IN LOWER LEFT QUADRANT. BOWEL TONES ACTIVE BUT PT STATES SHE HAS NOT HAD BM IN FOUR DAYS, SENNOKOT GIVEN. HEART TONES STRONG. PT IS SALINE LOCKED. NO NEEDS AT THIS TIME.
--- NOTE | 2022-11-30 09:40 | NUR ---
IVF infusing WNL. Pt reports using BR to void "sometime this morning", unmeasured. Breakfast tray cleared. No needs at this time. Call light in reach.
[2022-11-30 09:45] VITALS: BP 116/88
--- NOTE | 2022-11-30 09:49 | NUR ---
PT IN CHAIR. FAMILY MEMBER PRESENT IN ROOM. VITALS COMPLETE. PT DECLINED SHOWER. NO NEEDS. CALL LIGHT WITHIN REACH
--- NOTE | 2022-11-30 10:30 | NUR ---
pt assisted to bathroom and back to bed, sba. PT DENIES NEEDS, STATING SHE WANTS TO REST ON SIDE. AT BEDSIDE. CALL LIGHT WITHIN REACH.
--- NOTE | 2022-11-30 11:27 | NUR ---
ULTRASOUND GUIDED IV STARTED ON PT RIGHT ARM. PT RESTING IN BED WATCING TV. CALL LIGHT WITHIN REACH.
--- NOTE | 2022-11-30 12:07 | NUR ---
PT RIGHT AC IV REMOVED DUE TO PAIN AND FLUID INFUSING THROUGH LEFT FA IV. PT SITTING ON SIDE OF BED IN ROOM WATCHING TV. CALL LIGHT WITHIN REACH. PT DENIES NEEDS AT THIS TIME.
[2022-11-30 13:13] VITALS: BP 121/53
--- NOTE | 2022-11-30 13:45 | NUR ---
AM VISIT. PT RESTING IN BED. DENIES NEEDS. CONSENTED TO PRAYER. PRAYED FOR ONGOING HEALING AND ABIDING PEACE.
--- NOTE | 2022-11-30 13:53 | NUR ---
SPOKE TO PATIENT ABOUT THE DISCHARGE PLAN. PATIENT PLANS TO GO HOME WITH HER . PATIENT WOULD LIKE TO RESUME [facility] WHEN DISCHARGED. [employer] SUPPLIES THE OXYGEN THE PATIENT USES AT HOME.
--- NOTE | 2022-11-30 13:56 | NUR ---
PT RESTING IN BED IN ROOM WATCHING TV. POTASSIUM FINISHED INFUSING, PATIENT IV SALINE LOCKED. PT DENIES NEEDS AT THIS TIME. CALL LIGHT WITHIN REACH.
--- NOTE | 2022-11-30 15:16 | NUR ---
pt call light answered. pt req to ambulate. pt assisted ambulating in hoyos half lap around rn station by this pot sander and other pot sander pushing wc behind pt. pt back to chair. no needs. call light within reach
[2022-11-30 17:10] VITALS: BP 120/59
--- NOTE | 2022-11-30 19:34 | NUR ---
RECEIVED REPORT FROM DAY SHIFT RN. PT SITTING ON SIDE OF BED. O2 AT 4L IN PLACE. SAFETY PRECAUTIONS IN PLACE. NO NEEDS AT THIS TIME. WILL CONTINUE TO MONITOR.
[2022-11-30 19:48] VITALS: BP 136/75
--- NOTE | 2022-11-30 20:00 | NUR ---
CALL LIGHT ANSWERED. SBA TO RESTROOM FOR VOID. pt ASSISTED TO WIPE. UP TO SINK FOR ORAL CARE. ASSISTED BACK TO BED, SBA FWW. LABORED BREATHING, SPO2 95%, RR 22. HOME CPAP REFILLED WITH STERILE WATER. PRIMARY RN NOW IN ROOM ASSESSING pt.
--- NOTE | 2022-12-01 00:12 | NUR ---
PT IN BED LYING DOWN. BREATHING EVEN AND UNLABORED. CPAP IN PLACE. CALL LIGHT WITHIN REACH. SAFETY PRECAUTIONS IN PLACE. WILL CONTINUE TO MONITOR.
--- NOTE | 2022-12-01 02:30 | NUR ---
CALL LIGHT ANSWERED. SBA TO BATHROOM. WIPE ASSISTED. PATIENT IS BACK IN BED. DENIES FURTHER NEEDS AT THIS TIME.
[2022-12-01 05:50] VITALS: BP 127/63
--- NOTE | 2022-12-01 07:43 | NUR ---
RECEIVED REPORT FROM MASTER LAY OUT SPECIALIST RN. PT IN BED AWAKE. NO NEEDS VOICED BY THE PATIENT. CALL LIGHT WITHIN REACH.
--- NOTE | 2022-12-01 07:44 | NUR ---
PT CALLED TO USE BATHROOM. UP SBA. PERFORMED ASSESSMEND UPON PT GETTING BACK IN BED. NO PAIN VOICED. CALL LIGHT WITHIN REACH.
--- NOTE | 2022-12-01 08:50 | NUR ---
Spoke with Diane. She plans on dc to home today. States she has spoken with the Dr. She denies needs and would like to resume Home Health on dc. Dr. Pedroza signed resumption and I will fax on dc.
[2022-12-01 09:09] VITALS: BP 138/85
--- NOTE | 2022-12-01 09:30 | NUR ---
ROUNDED ON PT. PT IS IN BED. DENIES PAIN. NO FURTHER NEEDS VOICED. CALL LIGHT WITHIN REACH.
[2022-12-01 09:39] VITALS: BP 123/87
[2022-12-01] MEDS ORDERED: POTASSIUM CHLO20 ME1 PO (11:06)
[2022-12-01] MEDS ORDERED: TORSEMIDE20 MG PO (11:07)
--- NOTE | 2022-12-01 11:14 | NUR ---
pt call light answered. pt req to use br. pt up to br. pt cleaned up by this bingo worker. pt back to bed. no needs. call light within reach
--- NOTE | 2022-12-01 11:35 | NUR ---
ROUNDED ON PT. IV POTASSIUM STILL RUNNING. PT STATES SHE WOULD LIKE TO TAKE A SHOWER WHEN HER FLUIDS ARE DONE RUNNING BEFORE SHE GOES HOME. NO FURTHER NEEDS VOICED BY THE PT. CALL LIGHT WITHIN REACH.
--- NOTE | 2022-12-01 12:51 | NUR ---
ROUNDED ON PT. BROUGHT PT ICE CHIPS. PT IS EATING LUNCH AT BEDSIDE. NO FURTHER NEEDS VOICED. CALL LIGHT WITHIN REACH.
[2022-12-01 13:38] VITALS: BP 121/83
--- NOTE | 2022-12-01 14:55 | NUR ---
AM VISIT. PT WAS IN BED. HOPEFUL FOR DISCHARGE TODAY OR TOMORROW. GAVE GUIDEPOST AND CARD. PT CONSENTED TO PRAYER. PRAYED FOR HEALING AND ABIDING PEACE.
--- NOTE | 2022-12-01 15:56 | NUR ---
Face sheet, HH Resumption order,H&P, Progress note, Dc summary faxed to [facility].
== END 2022-12-01 14:40 | disposition home or self-care (01) | DRG 291 ==
LOC: ED 11:21 → MS 14:22
PROVIDERS: ADMIT Family Medicine; ATTEND Family Medicine
PROC: 5A09357 Assistance with Respiratory Ventilation, Less than 24 Consecutive Hours, Continuous Positive Airway Pressure (ICD-10-PCS; principal; 2022-11-28)
DX: I11.0 Hypertensive heart disease with heart failure (principal); I50.33 Acute on chronic diastolic (congestive) heart failure; J96.21 Acute and chronic respiratory failure with hypoxia; E46 Unspecified protein-calorie malnutrition; N17.9 Acute kidney failure, unspecified; Z68.42 Body mass index [BMI] 45.0-49.9, adult; J44.9 Chronic obstructive pulmonary disease, unspecified; E11.9 Type 2 diabetes mellitus without complications; I48.91 Unspecified atrial fibrillation; E66.01 Morbid (severe) obesity due to excess calories; E87.6 Hypokalemia; E03.9 Hypothyroidism, unspecified; D63.8 Anemia in other chronic diseases classified elsewhere; G47.33 Obstructive sleep apnea (adult) (pediatric); I27.20 Pulmonary hypertension, unspecified; E78.00 Pure hypercholesterolemia, unspecified; Z79.899 Other long term (current) drug therapy; Z99.81 Dependence on supplemental oxygen; Z88.0 Allergy status to penicillin; Z90.49 Acquired absence of other specified parts of digestive tract; Z98.890 Other specified postprocedural states; Z98.891 History of uterine scar from previous surgery; Z79.890 Hormone replacement therapy; Z87.891 Personal history of nicotine dependence; Z79.51 Long term (current) use of inhaled steroids
CPT/HCPCS: 36415; 71045; 80048; 80053; 83735; 83880; 84484; 85025; 85060; 93005; 93010; 93306; 94760; A9270; J1815; J1940; J3480; J3490; J7060

== ENCOUNTER 2022-12-15 07:10 | Observation (INO) | payer BC ==
[~2022-12-15] VITALS: Ht 170.2 cm; Wt 129.1 kg
--- OUTSIDE RECORDS SUMMARY | ~2022-12-15 | XMS | Continuity of Care Document ---
Demographics + + + | Address | [address] | | | [place] [address] | + + + | Preferred Language | Unknown | + + + | Marital Status | | + + + | Spiritism Affiliation | Unknown | + + + | Race | White | + + + | Ethnic Group | Not or | + + + Author + + + | Author | [facility] | + + + | Organization | [facility] | + + + | Address | [address] | | | [place] [address] | + + + | Phone | | + + + Care Team Providers + + + + | Care Data Governance Analyst Name | Role | Phone | + + + + Unavailable | Unavailable | + + + + Unavailable | Unavailable | + + + + Unavailable | Unavailable | + + + + Unavailable | Unavailable | + + + + Unavailable | Unavailable | + + + + Allergies and Intolerances + + + + + + | date | description | facility | reaction | severity | + + + + + + | (no date) | Rash | [facility] | (no reaction) | (no severity) | | [facility] | | | + + + + + + | (no date) | Rash | [facility] | (no reaction) | (no severity) | | | | Cardiopulmonary | | | | | | | | | + + + + + + | (no date) | Penicillin g | [facility] | (no reaction) | (no severity) | | | [facility] | | | + + + + + + | (no date) | BETA-BLOCKERS | [facility] | (no reaction) | (no severity) | | | (BETA-ADRENERGI | Cardiopulmonary | | | | | C BLOCK[facility] | | | | | | [facility]) | | | | + + + + + + | (no date) | PENICILLINS | [facility] | (no reaction) | (no severity) | | | | Cardiopulmonary | | | | | | | | | + + + + + + | (no date) | Penicillin g | [facility] | (no reaction) | (no severity) | | | [facility] | | | + + + + + + | (no date) | penicillin G | [facility] | (no reaction) | (no severity) | | | [facility] | | | + + + + + + | (no date) | penicillin G | [facility] | (no reaction) | (no severity) | + + + + + + | (no date) | Other (See | [facility] | (no reaction) | (no severity) | | | Comments) | Cardiopulmonary | | | | | | | | | + + + + + + | (no date) | Penicillin g | [facility] | (no reaction) | (no severity) | | | [facility] | | | + + + + + + Encounters No information. Functional Status No information. Immunizations + + + + | date | description | facility | + + + + | 2022-10-15 00:00 | No vaccine administered | [facility] | + + + + Medications + + + + | date | description | facility | + + + + | 2022-10-15 00:00 | OXYCODONE HCL | [facility] | + + + + | 2022-10-15 00:00 | oxycodone hydrochloride 5 | [facility] | | | MG Oral Tablet | | + + + + | 2022-12-01 00:00 | APIXABAN | [facility] | + + + + | 2022-12-10 00:00 | APIXABAN | [facility] | + + + + | 2022-10-15 00:00 | 0.5 ML dulaglutide 3 MG/ML | [facility] | | | Auto-Injector [Trulicity] | | + + + + | 2022-10-27 00:00 | DULAGLUTIDE | [facility] | + + + + | 2022-12-01 00:00 | DULAGLUTIDE | [facility] | + + + + | 2022-12-10 00:00 | DULAGLUTIDE | [facility] | + + + + | 2022-10-15 00:00 | Microencapsulated | [facility] | | | potassium chloride 20 MEQ | | | | Extended Release | | + + + + | 2022-10-15 00:00 | POTASSIUM CHLORIDE | [facility] | + + + + | 2022-10-15 00:00 | POTASSIUM CHLORIDE | [facility] | + + + + | 2022-12-01 00:00 | POTASSIUM CHLORIDE | [facility] | + + + + | 2022-12-01 00:00 | POTASSIUM CHLORIDE | [facility] | + + + + | 2022-10-15 00:00 | 30 ACTUAT fluticasone | [facility] | | | furoate 0.1 MG/ACTUAT / | | | | umeclidinium 0 | | + + + + | 2022-10-27 00:00 | | [facility] | | | Fluticasone/Umeclidin/Vilan | | | | ter | | + + + + | 2022-12-01 00:00 | | [facility] | | | Fluticasone/Umeclidin/Vilan | | | | ter | | + + + + | 2022-12-10 00:00 | | [facility] | | | Fluticasone/Umeclidin/Vilan | | | | ter | | + + + + | 2021-09-27 00:00 | lisinopril 20 mg / | [facility] | | | hydrochlorothiazide 25 mg | Cardiopulmonary | | | oral tablet | | + + + + | 2022-10-27 00:00 | NAPROXEN | [facility] | + + + + | 2022-12-01 00:00 | NAPROXEN | [facility] | + + + + | 2022-12-10 00:00 | NAPROXEN | [facility] | + + + + | 2022-10-15 00:00 | naproxen 500 MG Oral | [facility] | | | Tablet | | + + + + | 2022-10-15 00:00 | TORSEMIDE | [facility] | + + + + | 2022-10-15 00:00 | TORSEMIDE | [facility] | + + + + | 2022-12-01 00:00 | TORSEMIDE | [facility] | + + + + | 2022-12-01 00:00 | TORSEMIDE | [facility] | + + + + | 2022-10-15 00:00 | torsemide 20 MG Oral | [facility] | | | Tablet | | + + + + | 2022-10-27 00:00 | MAGNESIUM OXIDE | [facility] | + + + + | 2022-10-27 00:00 | MAGNESIUM OXIDE | [facility] | + + + + | 2021-09-27 00:00 | glimepiride 1 mg oral | [facility] | | | tablet | Cardiop[facility] | + + + + | 2021-09-27 00:00 | ferrous sulfate 325 mg | [facility] | | | (iron 65 mg) oral tablet | Cardiopulmonary | + + + + | 2021-09-27 00:00 | gabapentin 300 mg oral | [facility] | | | capsule | Cardiopulmonary | + + + + | 2022-10-27 00:00 | HYDROCHLOROTHIAZIDE | [facility] | + + + + | 2022-12-01 00:00 | HYDROCHLOROTHIAZIDE | [facility] | + + + + | 2022-12-10 00:00 | HYDROCHLOROTHIAZIDE | [facility] | + + + + | 2022-10-15 00:00 | hydrochlorothiazide 25 MG | [facility] | | | Oral Tablet | | + + + + | 2022-10-27 00:00 | PIOGLITAZONE HCL | [facility] | + + + + | 2022-12-01 00:00 | PIOGLITAZONE HCL | [facility] | + + + + | 2022-12-10 00:00 | PIOGLITAZONE HCL | [facility] | + + + + | 2022-10-15 00:00 | pioglitazone 45 MG Oral | [facility] | | | Tablet | | + + + + | 2022-10-27 00:00 | Pregabalin | [facility] | + + + + | 2022-12-01 00:00 | Pregabalin | [facility] | + + + + | 2022-12-10 00:00 | Pregabalin | [facility] | + + + + | 2022-10-15 00:00 | pregabalin 150 MG Oral | [facility] | | | Capsule | | + + + + | 2022-12-10 00:00 | NITROFURANTOIN MONOHYD | [facility] | | | MACROCR | | + + + + | 2022-10-15 00:00 | 24 HR diltiazem | [facility] | | | hydrochloride 120 MG | | | | Extended Release Oral C | | + + + + | 2022-10-15 00:00 | DILTIAZEM HCL | [facility] | + + + + | 2022-10-15 00:00 | DILTIAZEM HCL | [facility] | + + + + | 2022-10-27 00:00 | ALBUTEROL SULFATE | [facility] | + + + + | 2022-12-01 00:00 | ALBUTEROL SULFATE | [facility] | + + + + | 2022-12-10 00:00 | ALBUTEROL SULFATE | [facility] | + + + + | 2022-10-15 00:00 | [id number] 200 ACTUAT | [facility] | | | albuterol 0.09 MG/ACTUAT | | | | Metered Dose I | | + + + + | 2022-10-27 00:00 | Rosuvastatin Calcium | [facility] | + + + + | 2022-12-01 00:00 | Rosuvastatin Calcium | [facility] | + + + + | 2022-12-10 00:00 | Rosuvastatin Calcium | [facility] | + + + + | 2022-10-15 00:00 | rosuvastatin calcium 20 MG | [facility] | | | Oral Tablet | | + + + + | 2022-10-27 00:00 | METFORMIN HCL | [facility] | + + + + | 2022-12-01 00:00 | METFORMIN HCL | [facility] | + + + + | 2022-12-10 00:00 | METFORMIN HCL | [facility] | + + + + | 2022-10-15 00:00 | metformin hydrochloride | [facility] | | | 1000 MG Oral Tablet | | + + + + | 2021-09-27 00:00 | metformin hydrochloride | [facility] | | | 1000 mg oral tablet | Cardiop[facility] | + + + + | 2022-10-15 00:00 | 24 HR metoprolol succinate | [facility] | | | 25 MG Extended Release | | | | Oral Table | | + + + + | 2022-10-15 00:00 | METOPROLOL SUCCINATE | [facility] | + + + + | 2022-10-15 00:00 | METOPROLOL SUCCINATE | [facility] | + + + + | 2022-10-27 00:00 | LEVOTHYROXINE SODIUM | [facility] | + + + + | 2022-12-01 00:00 | LEVOTHYROXINE SODIUM | [facility] | + + + + | 2022-12-10 00:00 | LEVOTHYROXINE SODIUM | [facility] | + + + + | 2022-10-15 00:00 | levothyroxine sodium 0.137 | [facility] | | | MG Oral Tablet | | + + + + | 2021-09-27 00:00 | levothyroxine sodium 137 | [facility] | | | mcg oral tablet | [facility] | + + + + Problems + + + + | date | description | facility | + + + + | 2022-04-18 12:48 | CHRONIC OBSTRUCTIVE | [facility] | | | PULMONARY DISEASE, | | | | UNSPECIFIED | | + + + + | 2022-04-18 12:48 | OTHER DISORDERS OF LUNG | [facility] | + + + + | 2022-04-18 12:48 | OTHER FORMS OF DYSPNEA | [facility] | + + + + | 2022-06-14 09:15 | PAIN IN RIGHT SHOULDER | [facility] | + + + + | 2022-06-16 08:53 | TYPE 2 DIABETES MELLITUS | [facility] | | | WITH DIABETIC N | | + + + + | 2022-06-16 08:53 | MORBID (SEVERE) OBESITY | [facility] | | | DUE TO EXCESS CA | | + + + + | 2022-06-16 08:53 | DIETARY COUNSELING AND | [facility] | | | SURVEILLANCE | | + + + + | 2022-10-04 00:00 | Atrial fibrillation with | [facility] | | | rapid ventricular response | | + + + + | 2022-10-04 00:00 | Atrial fibrillation with | [facility] | | | rapid ventricular response | | + + + + | 2022-10-04 00:00 | Pleural effusion | [facility] | + + + + | 2022-10-04 00:00 | Pleural effusion | [facility] | + + + + | 2022-10-04 16:42 | Acute posthemorrhagic | [facility] | | | anemia | | + + + + | 2022-10-04 16:42 | HYPOTHYROIDISM, | [facility] | | | UNSPECIFIED | | + + + + | 2022-10-04 16:42 | TYPE 2 DIABETES MELLITUS | [facility] | | | WITHOUT COMPLICATIONS | | + + + + | 2022-10-04 16:42 | MORBID (SEVERE) OBESITY | [facility] | | | DUE TO EXCESS CALORIES | | + + + + | 2022-10-04 16:42 | PURE HYPERCHOLESTEROLEMIA, | [facility] | | | UNSPECIFIED | | + + + + | 2022-10-04 16:42 | OTHER DISORDERS OF | [facility] | | | BILIRUBIN METABOLISM | | + + + + | 2022-10-04 16:42 | HYPOKALEMIA | [facility] | + + + + | 2022-10-04 16:42 | SLEEP APNEA, UNSPECIFIED | [facility] | + + + + | 2022-10-04 16:42 | HYPERTENSIVE HEART DISEASE | [facility] | | | WITH HEART FAILURE | | + + + + | 2022-10-04 16:42 | UNSPECIFIED ATRIAL | [facility] | | | FIBRILLATION | | + + + + | 2022-10-04 16:42 | ACUTE ON CHRONIC DIASTOLIC | [facility] | | | (CONGESTIVE) HEART FAIL | | + + + + | 2022-10-04 16:42 | CHRONIC OBSTRUCTIVE | [facility] | | | PULMONARY DISEASE, | | | | UNSPECIFIED | | + + + + | 2022-10-04 16:42 | Other diseases of the | [facility] | | | pleura (J90-J94) | | + + + + | 2022-10-04 16:42 | ACUTE RESPIRATORY FAILURE | [facility] | | | WITH HYPOXIA | | + + + + | 2022-10-04 16:42 | DVRTCLOS OF LG INT W/O | [facility] | | | PERFORATION OR ABSCESS W/O | | + + + + | 2022-10-04 16:42 | POLYP OF COLON | [facility] | + + + + | 2022-10-04 16:42 | FOURTH DEGREE HEMORRHOIDS | [facility] | + + + + | 2022-10-04 16:42 | RESIDUAL HEMORRHOIDAL SKIN | [facility] | | | TAGS | | + + + + | 2022-10-04 16:42 | MELENA | [facility] | + + + + | 2022-10-04 16:42 | TACHYCARDIA, UNSPECIFIED | [facility] | + + + + | 2022-10-04 16:42 | SHORTNESS OF BREATH | [facility] | + + + + | 2022-10-04 16:42 | UNSPECIFIED OPEN WOUND, | [facility] | | | RIGHT LOWER LEG, INITIAL E | | + + + + | 2022-10-04 16:42 | BODY MASS INDEX (BMI) | [facility] | | | 50.0-59.9, ADULT | | + + + + | 2022-10-04 16:42 | DETENTION (CURRENT) USE OF | [facility] | | | ANTICOAGULANTS | | + + + + | 2022-10-04 16:42 | DETENTION (CURRENT) USE OF | [facility] | | | INSULIN | | + + + + | 2022-10-04 16:42 | HORMONE REPLACEMENT | [facility] | | | THERAPY | | + + + + | 2022-10-04 16:42 | OTHER DETENTION (CURRENT) | [facility] | | | DRUG THERAPY | | + + + + | 2022-10-04 16:42 | PERSONAL HISTORY OF | [facility] | | | NICOTINE DEPENDENCE | | + + + + | 2022-10-04 16:42 | ALLERGY STATUS TO | [facility] | | | PENICILLIN | | + + + + | 2022-10-04 16:42 | ALLERGY STATUS TO OTH | [facility] | | | DRUG/MEDS/BIOL SUBST STATUS | | | | | | + + + + | 2022-10-04 16:42 | ACQUIRED ABSENCE OF OTHER | [facility] | | | SPECIFIED PARTS OF DIGES | | + + + + | 2022-10-04 16:42 | OTHER SPECIFIED | [facility] | | | POSTPROCEDURAL STATES | | + + + + | 2022-10-04 16:42 | HISTORY OF UTERINE SCAR | [facility] | | | FROM PREVIOUS SURGERY | | + + + + | 2022-10-04 16:42 | DEPENDENCE ON SUPPLEMENTAL | [facility] | | | OXYGEN | | + + + + | 2022-10-25 00:00 | Morbid obesity | [facility] | + + + + | 2022-10-25 00:00 | Morbid obesity | [facility] | + + + + | 2022-10-25 00:00 | Acute diastolic congestive | [facility] | | | heart failure | | + + + + | 2022-10-25 00:00 | Acute diastolic congestive | [facility] | | | heart failure | | + + + + | 2022-10-25 00:00 | Acute respiratory failure | [facility] | | | with hypercapnia | | + + + + | 2022-10-25 00:00 | Acute respiratory failure | [facility] | | | with hypercapnia | | + + + + | 2022-10-25 13:36 | ANEMIA, UNSPECIFIED | [facility] | + + + + | 2022-10-25 13:36 | HYPOTHYROIDISM, | [facility] | | | UNSPECIFIED | | + + + + | 2022-10-25 13:36 | TYPE 2 DIABETES MELLITUS | [facility] | | | WITHOUT COMPLICATIONS | | + + + + | 2022-10-25 13:36 | MORBID (SEVERE) OBESITY | [facility] | | | DUE TO EXCESS CALORIES | | + + + + | 2022-10-25 13:36 | PURE HYPERCHOLESTEROLEMIA, | [facility] | | | UNSPECIFIED | | + + + + | 2022-10-25 13:36 | HYPOMAGNESEMIA | [facility] | + + + + | 2022-10-25 13:36 | HYPOKALEMIA | [facility] | + + + + | 2022-10-25 13:36 | CLAUSTROPHOBIA | [facility] | + + + + | 2022-10-25 13:36 | SLEEP APNEA, UNSPECIFIED | [facility] | + + + + | 2022-10-25 13:36 | OTHER SPECIFIED DISEASES | [facility] | | | OF LEFT INNER EAR | | + + + + | 2022-10-25 13:36 | Essential (primary) | [facility] | | | hypertension | | + + + + | 2022-10-25 13:36 | HYPERTENSIVE HEART DISEASE | [facility] | | | WITH HEART FAILURE | | + + + + | 2022-10-25 13:36 | UNSPECIFIED ATRIAL | [facility] | | | FIBRILLATION | | + + + + | 2022-10-25 13:36 | ACUTE ON CHRONIC DIASTOLIC | [facility] | | | (CONGESTIVE) HEART FAIL | | + + + + | 2022-10-25 13:36 | OTHER SPECIFIED DISORDERS | [facility] | | | OF VEINS | | + + + + | 2022-10-25 13:36 | CHRONIC OBSTRUCTIVE | [facility] | | | PULMONARY DISEASE, | | | | UNSPECIFIED | | + + + + | 2022-10-25 13:36 | Other diseases of the | [facility] | | | pleura (J90-J94) | | + + + + | 2022-10-25 13:36 | ACUTE AND CHRONIC | [facility] | | | RESPIRATORY FAILURE WITH | | | | HYPOXIA | | + + + + | 2022-10-25 13:36 | ACUTE AND CHRONIC | [facility] | | | RESPIRATORY FAILURE WITH | | | | HYPERCA | | + + + + | 2022-10-25 13:36 | POSTPROC HEMOR OF A DGSTV | [facility] | | | SYS ORG FOL A DGSTV SYS | | + + + + | 2022-10-25 13:36 | DISORIENTATION, | [facility] | | | UNSPECIFIED | | + + + + | 2022-10-25 13:36 | BODY MASS INDEX (BMI) | [facility] | | | 50.0-59.9, ADULT | | + + + + | 2022-10-25 13:36 | DETENTION (CURRENT) USE OF | [facility] | | | ANTICOAGULANTS | | + + + + | 2022-10-25 13:36 | PASSENGER BOOKING CLERK (CURRENT) USE OF | [facility] | | | INSULIN | | + + + + | 2022-10-25 13:36 | HORMONE REPLACEMENT | [facility] | | | THERAPY | | + + + + | 2022-10-25 13:36 | OTHER PASSENGER BOOKING CLERK (CURRENT) | [facility] | | | DRUG THERAPY | | + + + + | 2022-10-25 13:36 | ALLERGY STATUS TO | [facility] | | | PENICILLIN | | + + + + | 2022-10-25 13:36 | ACQUIRED ABSENCE OF OTHER | [facility] | | | SPECIFIED PARTS OF DIGES | | + + + + | 2022-10-25 13:36 | PT NONCOMPL WITH OTHER MED | [facility] | | | TRTMT AND REGIMEN FOR O | | + + + + | 2022-10-25 13:36 | OTHER SPECIFIED | [facility] | | | POSTPROCEDURAL STATES | | + + + + | 2022-10-25 13:36 | HISTORY OF UTERINE SCAR | [facility] | | | FROM PREVIOUS SURGERY | | + + + + | 2022-10-25 13:36 | DEPENDENCE ON SUPPLEMENTAL | [facility] | | | OXYGEN | | + + + + | 2022-10-25 13:36 | DEPENDENCE ON OTHER | [facility] | | | ENABLING MACHINES AND | | | | DEVICES | | + + + + | 2022-11-02 10:46 | Other diseases of the | [facility] | | | pleura (J90-J94) | | + + + + | 2022-11-08 14:18 | Other diseases of the | [facility] | | | pleura (J90-J94) | | + + + + | 2022-11-17 10:27 | Other diseases of the | [facility] | | | pleura (J90-J94) | | + + + + | 2022-11-19 19:18 | MORBID (SEVERE) OBESITY | [facility] | | | DUE TO EXCESS CA | | + + + + | 2022-11-19 19:18 | OBSTRUCTIVE SLEEP APNEA | [facility] | | | (ADULT) (PEDIATR | | + + + + | 2022-11-19 19:18 | CHRONIC RESPIRATORY | [facility] | | | FAILURE WITH HYPOXIA | | + + + + | 2022-11-19 20:30 | MORBID (SEVERE) OBESITY | [facility] | | | DUE TO EXCESS CA | | + + + + | 2022-11-19 20:30 | OBSTRUCTIVE SLEEP APNEA | [facility] | | | (ADULT) (PEDIATR | | + + + + | 2022-11-19 20:30 | CHRONIC RESPIRATORY | [facility] | | | FAILURE WITH HYPOXIA | | + + + + | 2022-11-28 00:00 | Congestive heart failure | [facility] | + + + + | 2022-11-28 00:00 | Congestive heart failure | [facility] | + + + + | 2022-11-28 14:22 | ANEMIA IN OTHER CHRONIC | [facility] | | | DISEASES CLASSIFIED ELSEWH | | + + + + | 2022-11-28 14:22 | HYPOTHYROIDISM, | [facility] | | | UNSPECIFIED | | + + + + | 2022-11-28 14:22 | TYPE 2 DIABETES MELLITUS | [facility] | | | WITHOUT COMPLICATIONS | | + + + + | 2022-11-28 14:22 | Unspecified | [facility] | | | protein-calorie | | | | malnutrition | | + + + + | 2022-11-28 14:22 | MORBID (SEVERE) OBESITY | [facility] | | | DUE TO EXCESS CALORIES | | + + + + | 2022-11-28 14:22 | PURE HYPERCHOLESTEROLEMIA, | [facility] | | | UNSPECIFIED | | + + + + | 2022-11-28 14:22 | HYPOKALEMIA | [facility] | + + + + | 2022-11-28 14:22 | OBSTRUCTIVE SLEEP APNEA | [facility] | | | (ADULT) (PEDIATRIC) | | + + + + | 2022-11-28 14:22 | HYPERTENSIVE HEART DISEASE | [facility] | | | WITH HEART FAILURE | | + + + + | 2022-11-28 14:22 | PULMONARY HYPERTENSION, | [facility] | | | UNSPECIFIED | | + + + + | 2022-11-28 14:22 | UNSPECIFIED ATRIAL | [facility] | | | FIBRILLATION | | + + + + | 2022-11-28 14:22 | ACUTE ON CHRONIC DIASTOLIC | [facility] | | | (CONGESTIVE) HEART FAIL | | + + + + | 2022-11-28 14:22 | CHRONIC OBSTRUCTIVE | [facility] | | | PULMONARY DISEASE, | | | | UNSPECIFIED | | + + + + | 2022-11-28 14:22 | Other diseases of the | [facility] | | | pleura (J90-J94) | | + + + + | 2022-11-28 14:22 | ACUTE AND CHRONIC | [facility] | | | RESPIRATORY FAILURE WITH | | | | HYPOXIA | | + + + + | 2022-11-28 14:22 | ACUTE KIDNEY FAILURE, | [facility] | | | UNSPECIFIED | | + + + + | 2022-11-28 14:22 | SHORTNESS OF BREATH | [facility] | + + + + | 2022-11-28 14:22 | BODY MASS INDEX (BMI) | [facility] | | | 45.0-49.9, ADULT | | + + + + | 2022-11-28 14:22 | PASSENGER BOOKING CLERK (CURRENT) USE OF | [facility] | | | INHALED STEROIDS | | + + + + | 2022-11-28 14:22 | HORMONE REPLACEMENT | [facility] | | | THERAPY | | + + + + | 2022-11-28 14:22 | OTHER PASSENGER BOOKING CLERK (CURRENT) | [facility] | | | DRUG THERAPY | | + + + + | 2022-11-28 14:22 | PERSONAL HISTORY OF | [facility] | | | NICOTINE DEPENDENCE | | + + + + | 2022-11-28 14:22 | ALLERGY STATUS TO | [facility] | | | PENICILLIN | | + + + + | 2022-11-28 14:22 | ACQUIRED ABSENCE OF OTHER | [facility] | | | SPECIFIED PARTS OF DIGES | | + + + + | 2022-11-28 14:22 | OTHER SPECIFIED | [facility] | | | POSTPROCEDURAL STATES | | + + + + | 2022-11-28 14:22 | HISTORY OF UTERINE SCAR | [facility] | | | FROM PREVIOUS SURGERY | | + + + + | 2022-11-28 14:22 | DEPENDENCE ON SUPPLEMENTAL | [facility] | | | OXYGEN | | + + + + | 2022-12-10 00:00 | Uncontrolled diabetes | [facility] | | | mellitus | | + + + + | 2022-12-10 00:00 | Urinary tract infection | [facility] | + + + + | 2022-12-10 10:39 | HYPOTHYROIDISM, | [facility] | | | UNSPECIFIED | | + + + + | 2022-12-10 10:39 | TYPE 2 DIABETES MELLITUS | [facility] | | | WITH HYPERGLYCEMIA | | + + + + | 2022-12-10 10:39 | MORBID (SEVERE) OBESITY | [facility] | | | DUE TO EXCESS CALORIES | | + + + + | 2022-12-10 10:39 | Essential (primary) | [facility] | | | hypertension | | + + + + | 2022-12-10 10:39 | CHRONIC OBSTRUCTIVE | [facility] | | | PULMONARY DISEASE, | | | | UNSPECIFIED | | + + + + | 2022-12-10 10:39 | URINARY TRACT INFECTION, | [facility] | | | SITE NOT SPECIFIED | | + + + + | 2022-12-10 10:39 | WEAKNESS | [facility] | + + + + | 2022-12-10 10:39 | BODY MASS INDEX (BMI) | [facility] | | | 45.0-49.9, ADULT | | + + + + | 2022-12-10 10:39 | DETENTION (CURRENT) USE OF | [facility] | | | ANTICOAGULANTS | | + + + + | 2022-12-10 10:39 | PASSENGER BOOKING CLERK (CURRENT) USE OF | [facility] | | | ORAL HYPOGLYCEMIC DRUGS | | + + + + | 2022-12-10 10:39 | OTHER PASSENGER BOOKING CLERK (CURRENT) | [facility] | | | DRUG THERAPY | | + + + + | 2022-12-10 10:39 | ALLERGY STATUS TO | [facility] | | | PENICILLIN | | + + + + | 2022-12-10 10:39 | DEPENDENCE ON SUPPLEMENTAL | [facility] | | | OXYGEN | | + + + + Procedures + + + + | date | description | facility | + + + + | 2022-10-13 00:00 | EXCISION OF HEMORRHOIDAL | [facility] | | | PLEXUS, OPEN APPROACH | | + + + + | 2022-10-11 00:00 | EXCISION OF SIGMOID COLON, | [facility] | | | ENDO, DIAGN | | + + + + | 2022-10-13 00:00 | Hemorrhoidectomy | [facility] | + + + + | 2022-10-11 00:00 | TRANSFUSE NONAUT RED BLOOD | [facility] | | | CELLS IN PERIPH VEIN, PERC | | | | | | + + + + | 2022-10-11 00:00 | Colonoscopy with biopsy of | [facility] | | | colon | | + + + + | 2022-11-28 00:00 | ASSISTANCE WITH | [facility] | | | RESPIRATORY VENTILATION, | | | | <24 HRS, CPAP | | + + + + | 2021-06-22 00:00 | PFT COMPLETE 1 | [facility] | | | (PRE-POST+DLCO+TLC) | Cardiopulmonary | + + + + Results/Labs +--------+--------+ +---------+--------+---------+ | test | date | facility | value | unit | notes | +--------+--------+ +---------+--------+---------+ + + | Result panel 1 | + + + + + + + + + | | (no date) | [facility] | COMPATIBLE | (missing) | (missing) | | (unavailable | [facility] | | | | + + + + + + + + + | Result panel 2 | + + + + + + + + + | | (no date) | [facility] | COMPATIBLE | (missing) | (missing) | | (unavailable | [facility] | | | | + + + + + + + + + | Result panel 3 | + + + + + + + + + | | (no date) | [facility] | | (missing) | (missing) | | (unavailable | [facility] [phone] | | | | ) | | [facility] | 5003 | | | + + + + + + + + + | Result panel 4 | + + + + + + + + + | | (no date) | [facility] | | (missing) | (missing) | | (unavailable | | [facility] [phone] | | | | ) | | [facility] | 6005 | | | + + + + + + + + + | Result panel 5 | + + + + + +--------+ + + | Serum or | 2022-10-04 | [facility] | 28.0 | (missing) | (missing) | | plasma | 12:56 | [facility] cardiac | | [facility] | | | | | troponin I | | | | | | | measurement | | | | | | | by high | | | | | | | senstivity | | | | | | | method | | | | | | | (mass/volume | | | | | | | ) | | | | | | + + + +--------+ + + + + | Result panel 6 | + + + + + +---------+ + + | Third | 2022-10-05 | [facility] | 1.677 | (missing) | (missing) | | generation | 05:11 | [facility] | | | | thyroid | | Hospital | | | | | stimulating | | | | | | | hormone | | | | | | | (TSH) | | | | | | | measurement | | | | | | + + + +---------+ + + + + | Result panel 7 | + + + + + +---------+ + + | | 2022-10-05 | [facility] | 1.677 | (missing) | (missing) | | (unavailable | 05:11:07 | [facility] | | | | + + + +---------+ + + + + | Result panel 8 | + + + + + + + + + | Fibrin | 2022-10-06 | [facility] | < 0.27 | (missing) | (missing) | | D-dimer FEU | 11:46 | [facility] | | | | | [Mass/volume | | Hospital | | | | | ] in | | | | | | | Platelet | | | | | | | poor plasma | | | | | | | by | | | | | | | Immunoassay | | | | | | + + + + + + + + + | Result panel 9 | + + + + + + + + + | | 2022-10-06 | [facility] | < 0.27 | (missing) | (missing) | | (unavailable | 11:46:07 | [facility] | | | | + + + + + + + + + | Result panel 10 | + + + + + +-------+ + + | Serum or | 2022-10-08 | [facility] | 4.2 | (missing) | (missing) | | plasma | 05:35 | [facility] | | | | phosphate | | [facility] | | | | | measurement | | | | | | | (mass/volume | | | | | | | ) | | | | | | + + + +-------+ + + + + | Result panel 11 | + + + + + +------+ + + | Iron | 2022-10-08 | [facility] | 51 | (missing) | (missing) | | [Mass/volume | 05:35 | [facility] | | | | ] in Serum | | Hospital | | | | | or Plasma | | | | | | + + + +------+ + + + + | Result panel 12 | + + + + + +-------+ + + | Iron | 2022-10-08 | [facility] | 510 | (missing) | (missing) | | binding | 05:35 | [facility] | | | | capacity | | [facility] | | | | | [Mass/volume | | | | | | | ] in Serum | | | | | | | or Plasma | | | | | | + + + +-------+ + + + + | Result panel 13 | + + + + + +------+ + + | Iron | 2022-10-08 | [facility] | 10 | (missing) | (missing) | | saturation | 05:35 | [facility] | | | | | [Mass | | Hospital | | | | | Fraction] in | | | | | | | Serum or | | | | | | | Plasma | | | | | | + + + +------+ + + + + | Result panel 14 | + + + + + +-------+---------+ + | | 2022-10-08 | [facility] | 4.2 | mg/dL | (missing) | | (unavailable | 05:35:07 [facility] | | | | + + + +-------+---------+ + + + | Result panel 15 | + + + + + +------+ + + | | 2022-10-08 | [facility] | 51 | (missing) | (missing) | | (unavailable | 05:35:07 [facility] | | | | + + + +------+ + + + + | Result panel 16 | + + + + + +-------+ + + | | 2022-10-08 | [facility] | 510 | (missing) | (missing) | | (unavailable | 05:35:07 [facility] | | | | + + + +-------+ + + + + | Result panel 17 | + + + + + +------+ + + | | 2022-10-08 | [facility] | 10 | (missing) | (missing) | | (unavailable | 05:35:07 [facility] | | | | + + + +------+ + + + + | Result panel 18 | + + + + + + + + + | Immediate | 2022-10-08 | [facility] | COMPATIBLE | (missing) | (missing) | | spin | 06:40 | [facility] crossmatch [facility] | [facility] | | | | + + + + + + + + + | Result panel 19 | + + + + + + + + + | Immediate | 2022-10-08 | [facility] | COMPATIBLE | (missing) | (missing) | | spin | 06:40 | [facility] | | | | + + + + + + + + + | Result panel 20 | + + + + + + + + + | | 2022-10-08 | [facility] | COMPATIBLE | (missing) | (missing) | | (unavailable | 06:40:07 | [facility] | | | | + + + + + + + + + | Result panel 21 | + + + + + + + + + | | 2022-10-08 | [facility] | COMPATIBLE | (missing) | (missing) | | (unavailable | 06:40:07 | [facility] | | | | + + + + + + + + + | Result panel 22 | + + + + + +--------+ + + | Prothrombin | 2022-10-09 | [facility] | 13.8 | (missing) | (missing) | | time (PT) | 05:12 | [facility] | | | | in platelet | | Hospital | | | | | poor plasma | | | | | | | by | | | | | | | coagulation | | | | | | | assay | | | | | | + + + +--------+ + + + + | Result panel 23 | + + + + + +--------+ + + | INR in | 2022-10-09 | [facility] | 1.11 | (missing) | (missing) | | Platelet | 05:12 | [facility] | | | | poor plasma | | Hospital | | | | | by | | | | | | | Coagulation | | | | | | | assay | | | | | | + + + +--------+ + + + + | Result panel 24 | + + + + + +--------+ + + | | 2022-10-09 | [facility] | 13.8 | (missing) | (missing) | | (unavailable | 05:12:07 | [facility] | | | | + + + +--------+ + + + + | Result panel 25 | + + + + + +--------+ + + | | 2022-10-09 | [facility] | 1.11 | (missing) | (missing) | | (unavailable | 05::07 | [facility] | | | | + + + +--------+ + + + + | Result panel 26 | + + + + + +-------+ + + | Serum or | 2022-10-11 | [facility] | 1.9 | (missing) | (missing) | | plasma | 05:23 | [facility] | | | | magnesium | | Hospital | | | | | measurement | | | | | | | (mass/volume | | | | | | | ) | | | | | | + + + +-------+ + + + + | Result panel 27 | + + + + + +-----+ + + | Blood ABO | 2022-10-12 | [facility] | O | (missing) | (missing) | | group typing | 10:50 | [facility] | | | | + + + +-----+ + + + + | Result panel 28 | + + + + + + + + + | Rh blood | 2022-10-12 | [facility] | POSITIVE | (missing) | (missing) | | group typing | 10:50 | [facility] | | | | + + + + + + + + + | Result panel 29 | + + + + + + + + + | Serum or | 2022-10-12 | [facility] | NEGATIVE | (missing) | (missing) | | plasma | 10:50 | [facility] | | | | indirect | | Hospital | | | | | antiglobulin | | | | | | | test using | | | | | | | poly | | | | | | | specific | | | | | | | reagent | | | | | | + + + + + + + + + | Result panel 30 | + + + + + + + + + | Blood blood | 2022-10-14 | [facility] | RBC | (missing) | (missing) | | smear | 06:10 | [facility] | MORPHOLOGY: | | | | finding | | Hospital | HYPOCHROMIA | | | | identificati | | | 1+, | | | | on by light | | | ANISOCYTOSIS | | | | microscopy | | | 2+ | | | | | | | (MACROCYTES) | | | | | | | . PLATELET | | | | | | | MORPHOLOGY: | | | | | | | NORMAL. | | | | | | | LAB.RU | | | + + + + + + + + + | Result panel 31 | + + + + + +-------+ + + | | 2022-10-25 | [facility] | 7.7 | (missing) | (missing) | | (unavailable | 09:27:07 | [facility] | | | | + + + +-------+ + + + + | Result panel 32 | + + + + + +-------+ + + | | 2022-10-25 | [facility] | 3.1 | (missing) | (missing) | | (unavailable | 09:27:07 | [facility] | | | | + + + +-------+ + + + + | Result panel 33 | + + + + + +-------+ + + | | 2022-10-25 | [facility] | 4.6 | (missing) | (missing) | | (unavailable | 09:27:07 | [facility] | | | | + + + +-------+ + + + + | Result panel 34 | + + + + + +--------+ + + | | 2022-10-25 | [facility] | 0.67 | (missing) | (missing) | | (unavailable | 09:27:07 | [facility] | | | | + + + +--------+ + + + + | Result panel 35 | + + + + + +-------+ + + | | 2022-10-25 | [facility] | 2.2 | (missing) | (missing) | | (unavailable | ::07 | [facility] | | | | + + + +-------+ + + + + | Result panel 36 | + + + + + +------+ + + | | 2022-10-25 | [facility] | 23 | (missing) | (missing) | | (unavailable | :07 | [facility] | | | | + + + +------+ + + + + | Result panel 37 | + + + + + +------+ + + | | 2022-10-25 | [facility] | 17 | (missing) | (missing) | | (unavailable | ::07 | [facility] | | | | + + + +------+ + + + + | Result panel 38 | + + + + + +-------+ + + | | 2022-10-25 | [facility] | 100 | (missing) | (missing) | | (unavailable | :07 | [facility] | | | | + + + +-------+ + + + + | Result panel 39 | + + + + + +--------+ + + | | 2022-10-25 | [facility] | 18.2 | (missing) | (missing) | | (unavailable | : | [facility] | | | | + + + +--------+ + + + + | Result panel 40 | + + + + + +--------+ + + | | 2022-10-25 | [facility] | 20.0 | (missing) | (missing) | | (unavailable | 07 | [facility] | | | | + + + +--------+ + + + + | Result panel 41 | + + + + + +-----+ + + | | 2022-10-25 | [facility] | O | (missing) | (missing) | | (unavailable | :07 | [facility] | | | | + + + +-----+ + + + + | Result panel 42 | + + + + + + + + + | | 2022-10-25 | [facility] | POSITIVE | (missing) | (missing) | | (unavailable | 07 | [facility] | | | | + + + + + + + + + | Result panel 43 | + + + + + + + + + | | 2022-10-25 | [facility] | POSITIVE | (missing) | (missing) | | (unavailable | :07 | [facility] | | | | + + + + + + + + + | Result panel 44 | + + + + + + + + + | | 2022-10-25 | [facility] | BLOOD IN | (missing) | (missing) | | (unavailable | :07 | [facility] | | [facility] | | | | + + + + + + + + + | Result panel 45 | + + + + + + + + + | | 2022-10-25 | [facility] | NEGATIVE | (missing) | (missing) | | (unavailable | 09:31:07 | [facility] | | | | + + + + + + + + + | Result panel 46 | + + + + + + + + + | | 2022-10-25 | [facility] | NEGATIVE | (missing) | (missing) | | (unavailable | 09:31:07 | [facility] | | | | + + + + + + + + + | Result panel 47 | + + + + + + + + + | | 2022-10-25 | [facility] | NEGATIVE | (missing) | (missing) | | (unavailable | 09:31:07 | [facility] | | | | + + + + + + + + + | Result panel 48 | + + + + + + + + + | | 2022-10-25 | [facility] | NEGATIVE | (missing) | (missing) | | (unavailable | 09:31:07 | [facility] | | | | + + + + + + + + + | Result panel 49 | + + + + + +-------+---------+ + | | 2022-10-26 | [facility] | 1.5 | mg/dL | (missing) | | (unavailable | 05:21:07 | [facility] | | | | + + + +-------+---------+ + + + | Result panel 50 | + + + + + +--------+ + + | | 2022-10-26 | [facility] | 7.47 | (missing) | (missing) | | (unavailable | 08:33:07 [facility] | | | | + + + +--------+ + + + + | Result panel 51 | + + + + + +--------+ + + | | 2022-10-26 | [facility] | 70.2 | (missing) | (missing) | | (unavailable | 08:33:07 [facility] | | | | + + + +--------+ + + + + | Result panel 52 | + + + + + +------+ + + | | 2022-10-26 | [facility] | 69 | (missing) | (missing) | | (unavailable | 08:33:07 [facility] | | | | + + + +------+ + + + + | Result panel 53 | + + + + + +--------+ + + | | 2022-10-26 | [facility] | 51.1 | (missing) | (missing) | | (unavailable | 08:33:07 [facility] | | | | + + + +--------+ + + + + | Result panel 54 | + + + + + +--------+ + + | | 2022-10-26 | [facility] | 24.5 | (missing) | (missing) | | (unavailable | 08:33:07 [facility] | | | | + + + +--------+ + + + + | Result panel 55 | + + + + + +--------+ + + | | 2022-10-26 | [facility] | 96.0 | (missing) | (missing) | | (unavailable | 08:33:07 [facility] | | | | + + + +--------+ + + + + | Result panel 56 | + + + + + +-------+ + + | | 2022-10-26 | [facility] | 4 L | (missing) | (missing) | | (unavailable | 08:33:07 [facility] | | | | + + + +-------+ + + + + | Result panel 57 | + + + + + +--------+ + + | | 2022-10-26 | [facility] | 53.2 | (missing) | (missing) | | (unavailable | 08:33:07 [facility] | | | | + + + +--------+ + + + + | Result panel 58 | + + + + + +-------+ + + | | 2022-10-27 | [facility] | 5.1 | (missing) | (missing) | | (unavailable | 05:15:07 | [facility] | | | | + + + +-------+ + + + + | Result panel 59 | + + + + + + + + + | | 2022-10-27 | [facility] | SEE | (missing) | (missing) | | (unavailable | 05:15:07 | [facility] COMMENTS | | | | ) | | Hospital | | | | + + + + + + + + + | Result panel 60 | + + + + + +--------+ + + | | 2022-10-27 | [facility] | 3.05 | (missing) | (missing) | | (unavailable | 05:15:07 | [facility] | | | | + + + +--------+ + + + + | Result panel 61 | + + + + + +-------+ + + | | 2022-10-27 | [facility] | 8.2 | (missing) | (missing) | | (unavailable | 05:15:07 [facility] | | | | + + + +-------+ + + + + | Result panel 62 | + + + + + +--------+ + + | | 2022-10-27 | [facility] | 25.9 | (missing) | (missing) | | (unavailable | 05:15:07 [facility] | | | | + + + +--------+ + + + + | Result panel 63 | + + + + + +--------+ + + | | 2022-10-27 | [facility] | 84.8 | (missing) | (missing) | | (unavailable | 05:15:07 [facility] | | | | + + + +--------+ + + + + | Result panel 64 | + + + + + +--------+ + + | | 2022-10-27 | [facility] | 27.0 | (missing) | (missing) | | (unavailable | 05:15:07 [facility] | | | | + + + +--------+ + + + + | Result panel 65 | + + + + + +--------+ + + | | 2022-10-27 | [facility] | 31.8 | (missing) | (missing) | | (unavailable | 05:15:07 | [facility] | | | | + + + +--------+ + + + + | Result panel 66 | + + + + + +--------+ + + | | 2022-10-27 | [facility] | 26.9 | (missing) | (missing) | | (unavailable | 05:15:07 [facility] | | | | + + + +--------+ + + + + | Result panel 67 | + + + + + +-------+ + + | | 2022-10-27 | [facility] | 191 | (missing) | (missing) | | (unavailable | 05:15:07 | [facility] | | | | + + + +-------+ + + + + | Result panel 68 | + + + + + +--------+ + + | | 2022-10-27 | [facility] | 67.6 | (missing) | (missing) | | (unavailable | 05:15:07 [facility] | | | | + + + +--------+ + + + + | Result panel 69 | + + + + + +--------+ + + | | 2022-10-27 | [facility] | 22.9 | (missing) | (missing) | | (unavailable | 05:15:07 [facility] | | | | + + + +--------+ + + + + | Result panel 70 | + + + + + +-------+ + + | | 2022-10-27 | [facility] | 6.9 | (missing) | (missing) | | (unavailable | 05:15:07 [facility] | | | | + + + +-------+ + + + + | Result panel 71 | + + + + + +-------+ + + | | 2022-10-27 | [facility] | 1.6 | (missing) | (missing) | | (unavailable | 05:15:07 [facility] | | | | + + + +-------+ + + + + | Result panel 72 | + + + + + +-------+ + + | | 2022-10-27 | [facility] | 1.0 | (missing) | (missing) | | (unavailable | 05:15:07 | [facility] | | | | + + + +-------+ + + + + | Result panel 73 | + + + + + +-------+ + + | | 2022-10-27 | [facility] | 271 | (missing) | (missing) | | (unavailable | 11:46:07 | [facility] | | | | + + + +-------+ + + + + | Result panel 74 | + + + + + +-------+---------+ + | | 2022-10-27 | [facility] | 321 | mg/dL | (missing) | | (unavailable | 12:54:07 | [facility] | | | | + + + +-------+---------+ + + + | Result panel 75 | + + + + + +------+---------+ + | | 2022-10-27 | [facility] | 20 | mg/dL | (missing) | | (unavailable | 12:54:07 [facility] | | | | + + + +------+---------+ + + + | Result panel 76 | + + + + + +--------+---------+ + | | 2022-10-27 | [facility] | 1.34 | mg/dL | (missing) | | (unavailable | 12:54:07 [facility] | | | | + + + +--------+---------+ + + + | Result panel 77 | + + + + + +------+ + + | | 2022-10-27 | [facility] | 45 | (missing) | (missing) | | (unavailable | 12:54:07 [facility] | | | | + + + +------+ + + + + | Result panel 78 | + + + + + +---------+ + + | | 2022-10-27 | [facility] | 14.92 | (missing) | (missing) | | (unavailable | 12:54:07 [facility] | | | | + + + +---------+ + + + + | Result panel 79 | + + + + + +-------+ + + | | 2022-10-27 | [facility] | 136 | (missing) | (missing) | | (unavailable | 12:54:07 [facility] | | | | + + + +-------+ + + + + | Result panel 80 | + + + + + +-------+ + + | | 2022-10-27 | [facility] | 3.7 | (missing) | (missing) | | (unavailable | 12:54:07 [facility] | | | | + + + +-------+ + + + + | Result panel 81 | + + + + + +------+ + + | | 2022-10-27 | [facility] | 91 | (missing) | (missing) | | (unavailable | 12:54:07 [facility] | | | | + + + +------+ + + + + | Result panel 82 | + + + + + +------+ + + | | 2022-10-27 | [facility] | 50 | (missing) | (missing) | | (unavailable | 12:54:07 [facility] | | | | + + + +------+ + + + + | Result panel 83 | + + + + + +--------+ + + | | 2022-10-27 | [facility] | -1.3 | (missing) | (missing) | | (unavailable | 12:54:07 [facility] | | | | + + + +--------+ + + + + | Result panel 84 | + + + + + +-------+---------+ + | | 2022-10-27 | [facility] | 9.5 | mg/dL | (missing) | | (unavailable | 12:54:07 [facility] | | | | + + + +-------+---------+ + + + | Result panel 85 | + + + + + + + + + | | 2022-11-17 | [facility] | SEE NOTE | (missing) | (missing) | | (unavailable | 11:30:07 [facility] | | | | + + + + + + + + + | Result panel 86 | + + + + + + + + + | | 2022-11-17 | [facility] | Pleural | (missing) | (missing) | | (unavailable | 11:30:07 [facility] fluid | | | | ) | | Hospital | | | | + + + + + + + + + | Result panel 87 | + + + + + +-------+ + + | | 2022-11-17 | [facility] | 119 | (missing) | (missing) | | (unavailable | 11:30:07 [facility] | | | | + + + +-------+ + + + + | Result panel 88 | + + + + + + + + + | | 2022-11-17 | [facility] | SEE NOTE | (missing) | (missing) | | (unavailable | 11:30:07 [facility] | | | | + + + + + + + + + | Result panel 89 | + + + + + + + + + | | 2022-11-17 | [facility] | Pleural | (missing) | (missing) | | (unavailable | 11:30:07 [facility] fluid [facility] | | | ) | | Hospital | | | | + + + + + + + + + | Result panel 90 | + + + + + +-------+ + + | | 2022-11-17 | [facility] | 119 | (missing) | (missing) | | (unavailable | 11:30:07 [facility] | | | | + + + +-------+ + + + + | Result panel 91 | + + + + + +------+ + + | | 2022-11-28 | [facility] | 13 | (missing) | (missing) | | (unavailable | 11:32:07 [facility] | | | | + + + +------+ + + + + | Result panel 92 | + + + + + +------+ + + | | 2022-11-28 | [facility] | 98 | (missing) | (missing) | | (unavailable | 11:32:07 [facility] | | | | + + + +------+ + + + + | Result panel 93 | + + + + + +--------+ + + | | 2022-11-28 | [facility] | 18.3 | (missing) | (missing) | | (unavailable | 11:32:07 [facility] | | | | + + + +--------+ + + + + | Result panel 94 | + + + + + +--------+ + + | | 2022-11-28 | [facility] | 18.3 | (missing) | (missing) | | (unavailable | 11:32:07 [facility] | | | | + + + +--------+ + + + + | Result panel 95 | + + + + + +-------+ + + | | 2022-11-28 | [facility] | 8.0 | (missing) | (missing) | | (unavailable | 11:32:07 [facility] | | | | + + + +-------+ + + + + | Result panel 96 | + + + + + +-------+ + + | | 2022-11-28 | [facility] | 3.0 | (missing) | (missing) | | (unavailable | 11:32:07 [facility] | | | | + + + +-------+ + + + + | Result panel 97 | + + + + + +-------+ + + | | 2022-11-28 | [facility] | 5.0 | (missing) | (missing) | | (unavailable | 11:32:07 [facility] | | | | + + + +-------+ + + + + | Result panel 98 | + + + + + +--------+ + + | | 2022-11-28 | [facility] | 0.60 | (missing) | (missing) | | (unavailable | 11:32:07 [facility] | | | | + + + +--------+ + + + + | Result panel 99 | + + + + + +-------+ + + | | 2022-11-28 | [facility] | 1.3 | (missing) | (missing) | | (unavailable | 11:32:07 [facility] | | | | + + + +-------+ + + + + | Result panel 100 | + + + + + +------+ + + | | 2022-11-28 | [facility] | 18 | (missing) | (missing) | | (unavailable | 11:32:07 [facility] | | | | + + + +------+ + + + + | Result panel 101 | + + + + + +-------+---------+ + | | 2022-12-01 | [facility] | 2.5 | mg/dL | (missing) | | (unavailable | 05:25:07 [facility] | | | | + + + +-------+---------+ + + + | Result panel 102 | + + + + + +-------+ + + | | 2022-12-01 | [facility] | 6.3 | (missing) | (missing) | | (unavailable | 05:25:07 | [facility] | | | | | ) | | [facility]da | | | | + + + +-------+ + + + + | Result panel 103 | + + + + + + + + + | | 2022-12-01 | [facility] | (missing) | (missing) | (missing) | | (unavailable | 05:25:07 [facility] | | | | + + + + + + + + + | Result panel 104 | + + + + + +--------+ + + | | 2022-12-01 | [facility] | 3.62 | (missing) | (missing) | | (unavailable | 05:25:07 [facility] | | | | + + + +--------+ + + + + | Result panel 105 | + + + + + +-------+ + + | | 2022-12-01 | [facility] | 9.3 | (missing) | (missing) | | (unavailable | 05:25:07 [facility] | | | | + + + +-------+ + + + + | Result panel 106 | + + + + + +--------+ + + | | 2022-12-01 | [facility] | 29.3 | (missing) | (missing) | | (unavailable | 05:25:07 [facility] | | | | + + + +--------+ + + + + | Result panel 107 | + + + + + +--------+ + + | | 2022-12-01 | [facility] | 81.1 | (missing) | (missing) | | (unavailable | 05:25:07 [facility] | | | | + + + +--------+ + + + + | Result panel 108 | + + + + + +--------+ + + | | 2022-12-01 | [facility] | 25.8 | (missing) | (missing) | | (unavailable | 05:25:07 [facility] | | | | + + + +--------+ + + + + | Result panel 109 | + + + + + +--------+ + + | | 2022-12-01 | [facility] | 31.9 | (missing) | (missing) | | (unavailable | 05:25:07 [facility] | | | | + + + +--------+ + + + + | Result panel 110 | + + + + + +--------+ + + | | 2022-12-01 | [facility] | 20.8 | (missing) | (missing) | | (unavailable | 05:25:07 [facility] | | | | + + + +--------+ + + + + | Result panel 111 | + + + + + +-------+ + + | | 2022-12-01 | [facility] | 179 | (missing) | (missing) | | (unavailable | 05:25:07 [facility] | | | | + + + +-------+ + + + + | Result panel 112 | + + + + + +--------+ + + | | 2022-12-01 | [facility] | 66.2 | (missing) | (missing) | | (unavailable | 05:25:07 | [facility] | | | | + + + +--------+ + + + + | Result panel 113 | + + + + + +--------+ + + | | 2022-12-01 | [facility] | 24.4 | (missing) | (missing) | | (unavailable | 05:25:07 [facility] | | | | + + + +--------+ + + + + | Result panel 114 | + + + + + +-------+ + + | | 2022-12-01 | [facility] | 7.5 | (missing) | (missing) | | (unavailable | 05:25:07 [facility] | | | | + + + +-------+ + + + + | Result panel 115 | + + + + + +-------+ + + | | 2022-12-01 | [facility] | 0.9 | (missing) | (missing) | | (unavailable | 05:25:07 [facility] | | | | + + + +-------+ + + + + | Result panel 116 | + + + + + +-------+ + + | | 2022-12-01 | [facility] | 1.0 | (missing) | (missing) | | (unavailable | 05:25:07 [facility] | | | | + + + +-------+ + + + + | Result panel 117 | + + + + + +-------+---------+ + | | 2022-12-01 | [facility] | 264 | mg/dL | (missing) | | (unavailable | 05:25:07 [facility] | | | | + + + +-------+---------+ + + + | Result panel 118 | + + + + + +------+---------+ + | | 2022-12-01 | [facility] | 40 | mg/dL | (missing) | | (unavailable | 05:25:07 [facility] | | | | + + + +------+---------+ + + + | Result panel 119 | + + + + + +--------+---------+ + | | 2022-12-01 | [facility] | 1.58 | mg/dL | (missing) | | (unavailable | 05:25:07 [facility] | | | | + + + +--------+---------+ + + + | Result panel 120 | + + + + + +------+ + + | | 2022-12-01 | [facility] | 37 | (missing) | (missing) | | (unavailable | 05:25:07 [facility] | | | | + + + +------+ + + + + | Result panel 121 | + + + + + +---------+ + + | | 2022-12-01 | [facility] | 25.31 | (missing) | (missing) | | (unavailable | 05::07 | [facility] | | | | + + + +---------+ + + + + | Result panel 122 | + + + + + +-------+ + + | | 2022-12-01 | [facility] | 136 | (missing) | (missing) | | (unavailable | 05::07 [facility] | | | | + + + +-------+ + + + + | Result panel 123 | + + + + + +-------+ + + | | 2022-12-01 | [facility] | 2.7 | (missing) | (missing) | | (unavailable | 05:25:07 [facility] | | | | + + + +-------+ + + + + | Result panel 124 | + + + + + +------+ + + | | 2022-12-01 | [facility] | 92 | (missing) | (missing) | | (unavailable | 05:25:07 [facility] | | | | + + + +------+ + + + + | Result panel 125 | + + + + + +------+ + + | | 2022-12-01 | [facility] | 44 | (missing) | (missing) | | (unavailable | 05:25:07 | [facility] | | | | + + + +------+ + + + + | Result panel 126 | + + + + + +-------+ + + | | 2022-12-01 | [facility] | 2.7 | (missing) | (missing) | | (unavailable | 05:25:07 [facility] | | | | + + + +-------+ + + + + | Result panel 127 | + + + + + +--------+---------+ + | | 2022-12-01 | [facility] | 10.1 | mg/dL | (missing) | | (unavailable | 05:25:07 | [facility] | | | | + + + +--------+---------+ + + + | Result panel 128 | + + + + + +-------+---------+ + | | 2022-12-01 | [facility] | 2.5 | mg/dL | (missing) | | (unavailable | 05:25:07 | [facility] | | | | + + + +-------+---------+ + + + | Result panel 129 | + + + + + +-------+ + + | | 2022-12-01 | [facility] | 369 | (missing) | (missing) | | (unavailable | 12:09:07 [facility] | | | | + + + +-------+ + + + + | Result panel 130 | + + + + + +-------+ + + | | 2022-12-10 | [facility] | 8.7 | (missing) | (missing) | | (unavailable | 10:58:07 [facility] | | | | + + + +-------+ + + + + | Result panel 131 | + + + + + +-------+ + + | | 2022-12-10 | [facility] | 253 | (missing) | (missing) | | (unavailable | 10:58:07 [facility] | | | + + + +-------+ + + + + | Result panel 132 | + + + + + +--------+ + + | | 2022-12-10 | [facility] | 82.6 | (missing) | (missing) | | (unavailable | [facility]:58:07 [facility] | | | + + + +--------+ + + + + | Result panel 133 | + + + + + +-------+ + + | | 2022-12-10 | [facility] | 8.7 | (missing) | (missing) | | (unavailable | [facility]:58:07 [facility] | | | + + + +-------+ + + + + | Result panel 134 | + + + + + +-------+ + + | | 2022-12-10 | [facility] | 8.5 | (missing) | (missing) | | (unavailable | [facility]:58:07 [facility] | | | + + + +-------+ + + + + | Result panel 135 | + + + + + +-------+ + + | | 2022-12-10 | [facility] | 0.0 | (missing) | (missing) | | (unavailable | [facility]:58:07 [facility] | | | + + + +-------+ + + + + | Result panel 136 | + + + + + +-------+ + + | | 2022-12-10 | [facility] | 0.2 | (missing) | (missing) | | (unavailable | 10:58:07 [facility] | | | + + + +-------+ + + + + | Result panel 137 | + + + + + + + + + | | 2022-12-10 | [facility] | SEE COMMENT | (missing) | (missing) | | (unavailable | 10:58:07 [facility] | | | + + + + + + + + + | Result panel 138 | + + + + + +--------+ + + | | 2022-12-10 | [facility] | 3.74 | (missing) | (missing) | | (unavailable | [facility]:58:07 [facility] | | | + + + +--------+ + + + + | Result panel 139 | + + + + + +---------+ + + | | 2022-12-10 | [facility] | 7.488 | (missing) | (missing) | | (unavailable | 10:58:07 [facility] | | | + + + +---------+ + + + + | Result panel 140 | + + + + + +-------+---------+ + | | 2022-12-10 | [facility] | 279 | mg/dL | (missing) | | (unavailable | 10:58:07 [facility] | | | + + + +-------+---------+ + + + | Result panel 141 | + + + + + +------+---------+ + | | 2022-12-10 | [facility] | 53 | mg/dL | (missing) | | (unavailable | 10:58:07 [facility] | | | | + + + +------+---------+ + + + | Result panel 142 | + + + + + +-------+ + + | | 2022-12-10 | [facility] | 9.5 | (missing) | (missing) | | (unavailable | 10:58:07 [facility] | | | + + + +-------+ + + + + | Result panel 143 | + + + + + +--------+---------+ + | | 2022-12-10 | [facility] | 1.63 | mg/dL | (missing) | | (unavailable | 10:58:07 [facility] | | | | + + + +--------+---------+ + + + | Result panel 144 | + + + + + +------+ + + | | 2022-12-10 | [facility] | 36 | (missing) | (missing) | | (unavailable | 10:58:07 [facility] | | | + + + +------+ + + + + | Result panel 145 | + + + + + +---------+ + + | | 2022-12-10 | [facility] | 32.51 | (missing) | (missing) | | (unavailable | 10:58:07 [facility] | | | + + + +---------+ + + + + | Result panel 146 | + + + + + +-------+ + + | | 2022-12-10 | [facility] | 131 | (missing) | (missing) | | (unavailable | 10:58:07 [facility] | | | + + + +-------+ + + + + | Result panel 147 | + + + + + +-------+ + + | | 2022-12-10 | [facility] | 3.0 | (missing) | (missing) | | (unavailable | 10:58:07 [facility] | | | + + + +-------+ + + + + | Result panel 148 | + + + + + +------+ + + | | 2022-12-10 | [facility] | 84 | (missing) | (missing) | | (unavailable | 10:58:07 [facility] | | | + + + +------+ + + + + | Result panel 149 | + + + + + +------+ + + | | 2022-12-10 | [facility] | 47 | (missing) | (missing) | | (unavailable | 10:58:07 [facility] | | | + + + +------+ + + + + | Result panel 150 | + + + + + +-------+ + + | | 2022-12-10 | [facility] | 3.0 | (missing) | (missing) | | (unavailable | 10:58:07 [facility] | | | + + + +-------+ + + + + | Result panel 151 | + + + + + +--------+---------+ + | | 2022-12-10 | [facility] | 10.2 | mg/dL | (missing) | | (unavailable | 10:58:07 [facility] | | | + + + +--------+---------+ + + + | Result panel 152 | + + + + + +-------+ + + | | 2022-12-10 | [facility] | 8.3 | (missing) | (missing) | | (unavailable | 10:58:07 [facility] | | | + + + +-------+ + + + + | Result panel 153 | + + + + + +--------+ + + | | 2022-12-10 | [facility] | 29.8 | (missing) | (missing) | | (unavailable | 10[facility]58:07 [facility] | | | + + + +--------+ + + + + | Result panel 154 | + + + + + +-------+ + + | | 2022-12-10 | [facility] | 2.8 | (missing) | (missing) | | (unavailable | 10[facility]58:07 [facility] | | | + + + +-------+ + + + + | Result panel 155 | + + + + + +-------+ + + | | 2022-12-10 | [facility] | 5.5 | (missing) | (missing) | | (unavailable | [facility]58:07 [facility] | | | + + + +-------+ + + + + | Result panel 156 | + + + + + +--------+ + + | | 2022-12-10 | [facility] | 0.51 | (missing) | (missing) | | (unavailable | 10:58:07 [facility] | | | + + + +--------+ + + + + | Result panel 157 | + + + + + +-------+ + + | | 2022-12-10 | [facility] | 2.7 | (missing) | (missing) | | (unavailable | 10:58:07 [facility] | | | + + + +-------+ + + + + | Result panel 158 | + + + + + +------+ + + | | 2022-12-10 | [facility] | 26 | (missing) | (missing) | | (unavailable | 10:58:07 [facility] | | | | + + + +------+ + + + + | Result panel 159 | + + + + + +------+ + + | | 2022-12-10 | [facility] | 18 | (missing) | (missing) | | (unavailable | 10:58:07 [facility] | | | + + + +------+ + + + + | Result panel 160 | + + + + + +-------+ + + | | 2022-12-10 | [facility] | 110 | (missing) | (missing) | | (unavailable | 10:58:07 [facility] | | | + + + +-------+ + + + + | Result panel 161 | + + + + + + + + + | | 2022-12-10 | [facility] | NEGATIVE | (missing) | (missing) | | (unavailable | 10:58:07 [facility] | | | + + + + + + + + + | Result panel 162 | + + + + + +--------+ + + | | 2022-12-10 | [facility] | 79.6 | (missing) | (missing) | | (unavailable | 10:58:07 [facility] | | | + + + +--------+ + + + + | Result panel 163 | + + + + + +--------+ + + | | 2022-12-10 | [facility] | 25.3 | (missing) | (missing) | | (unavailable | 10:58:07 [facility] | | | + + + +--------+ + + + + | Result panel 164 | + + + + + +--------+ + + | | 2022-12-10 | [facility] | 31.8 | (missing) | (missing) | | (unavailable | 10:58:07 [facility] | | | + + + +--------+ + + + + | Result panel 165 | + + + + + +--------+ + + | | 2022-12-10 | [facility] | 20.3 | (missing) | (missing) | | (unavailable | 10:58:07 [facility] | | | + + + +--------+ + + + + | Result panel 166 | + + + + + + + + + | | 2022-12-10 | [facility] | YELLOW | (missing) | (missing) | | (unavailable | 11:02:07 [facility] | | | | + + + + + + + + + | Result panel 167 | + + + + + +---------+ + + | | 2022-12-10 | [facility] | CLEAR | (missing) | (missing) | | (unavailable | 11:02:07 [facility] | | | | + + + +---------+ + + + + | Result panel 168 | + + + + + + + + + | | 2022-12-10 | [facility] | NEGATIVE | (missing) | (missing) | | (unavailable | 11:02:07 [facility] | | | | + + + + + + + + + | Result panel 169 | + + + + + + + + + | | 2022-12-10 | [facility] | NEGATIVE | (missing) | (missing) | | (unavailable | 11:02:07 [facility] | | | | + + + + + + + + + | Result panel 170 | + + + + + + + + + | | 2022-12-10 | [facility] | NEGATIVE | (missing) | (missing) | | (unavailable | 11:02:07 [facility] | | | | + + + + + + + + + | Result panel 171 | + + + + + +---------+ + + | | 2022-12-10 | [facility] | 1.025 | (missing) | (missing) | | (unavailable | 11:02:07 [facility] | | | | + + + +---------+ + + + + | Result panel 172 | + + + + + + + + + | | 2022-12-10 | [facility] | MODERATE | (missing) | (missing) | | (unavailable | 11:02:07 [facility] | | | | + + + + + + + + + | Result panel 173 | + + + + + +-------+ + + | | 2022-12-10 | [facility] | 6.5 | (missing) | (missing) | | (unavailable | 11:02:07 [facility] | | | | + + + +-------+ + + + + | Result panel 174 | + + + + + +-------+ + + | | 2022-12-10 | [facility] | 100 | (missing) | (missing) | | (unavailable | 11:02:07 [facility] | | | | + + + +-------+ + + + + | Result panel 175 | + + + + + +-------+ + + | | 2022-12-10 | [facility] | 1.0 | (missing) | (missing) | | (unavailable | 11:02:07 [facility] | | | | + + + +-------+ + + + + | Result panel 176 | + + + + + + + + + | | 2022-12-10 | [facility] | POSITIVE | (missing) | (missing) | | (unavailable | 11::07 | [facility] | | | | + + + + + + + + + | Result panel 177 | + + + + + +---------+ + + | | 2022-12-10 | [facility] | TRACE | (missing) | (missing) | | (unavailable | 11:02:07 [facility] | | | | + + + +---------+ + + + + | Result panel 178 | + + + + + +-------+ + + | | 2022-12-10 | [facility] | 4-6 | (missing) | (missing) | | (unavailable | 11:02:07 [facility] | | | | + + + +-------+ + + + + | Result panel 179 | + + + + + +---------+ + + | | 2022-12-10 | [facility] | 12-20 | (missing) | (missing) | | (unavailable | 11:02:07 [facility] | | | | + + + +---------+ + + + + | Result panel 180 | + + + + + + + + + | | 2022-12-10 | [facility] | SQUAMOUS 3+ | (missing) | (missing) | | (unavailable | 11:02:07 [facility] | | | | + + + + + + + + + | Result panel 181 | + + + + + + + + + | | 2022-12-10 | [facility] | NONE SEEN | (missing) | (missing) | | (unavailable | 11:02:07 [facility] | | | | + + + + + + + + + | Result panel 182 | + + + + + +------+ + + | | 2022-12-10 | [facility] | 4+ | (missing) | (missing) | | (unavailable | 11:02:07 [facility] | | | | + + + +------+ + + + + | Result panel 183 | + + + + + + + + + | | 2022-12-10 | [facility] | NONE SEEN | (missing) | (missing) | | (unavailable | 11:02:07 [facility] | | | | + + + + + + + + + | Result panel 184 | + + + + + +------+ + + | | 2022-12-10 | [facility] | No | (missing) | (missing) | | (unavailable | 11:02:07 [facility] | | | | + + + +------+ + + + + | Result panel 185 | + + + + + + + + + | | 2022-12-10 | [facility] | CLEAN CATCH | (missing) | (missing) | | (unavailable | 11:02:07 [facility] | | | | + + + + + + + + + | Result panel 186 | + + + + + +-------+ + + | | 2022-12-10 | [facility] | 259 | (missing) | (missing) | | (unavailable | 11:16:07 | [facility] | | | | + + + +-------+ + + + + | Immediate spin crossmatch | + + + + + + + + + | Immediate | (no date) | [facility] | COMPATIBLE | (missing) | (missing) | | spin | [facility] | | | | + + + + + + + + + | Immediate spin crossmatch | + + + + + + + + + | Immediate | (no date) | [facility] | COMPATIBLE | (missing) | (missing) | | spin | [facility] | | | | + + + + + + + + + | Serum or plasma alanine aminotransferase measurement (enzymatic activity/volume) | + + + + + +-----+ + + | Serum or | 2022-10-15 | [facility] | 8 | (missing) | (missing) | | plasma | 06:05 | [facility] | | | | alanine | | Hospital | | | | | aminotransfe | | | | | | | rase | | | | | | | measurement | | | | | | | (enzymatic | | | | | | | activity/vol | | | | | | | ume) | | | | | | + + + +-----+ + + + + | Serum or plasma albumin measurement (mass/volume) | + + + + + +-------+ + + | Serum or | 2022-10-15 | [facility] | 2.4 | (missing) | (missing) | | plasma | 06:05 | [facility] | | | albumin | | [facility] | | | | | measurement | | | | | | | (mass/volume | | | | | | | ) | | | | | | + + + +-------+ + + + + | Serum or plasma albumin/globulin mass ratio | + + + + + +--------+ + + | Serum or | 2022-10-15 | [facility] | 0.62 | (missing) | (missing) | | plasma | 06:05 | [facility] | | | | albumin/glob | | [facility] | | | | | ulin mass | | | | | | | ratio | | | | | | + + + +--------+ + + + + | Serum or plasma calcium measurement (mass/volume) | + + + + + +-------+ + + | Serum or | 2022-10-15 | [facility] | 8.6 | (missing) | (missing) | | plasma | 06:05 | [facility] | | | calcium | | [facility] | | | | | measurement | | | | | | | (mass/volume | | | | | | | ) | | | | | | + + + +-------+ + + + + | Serum or plasma anion gap 4 | + + + + + +-------+ + + | Serum or | 2022-10-15 | [facility] | 4.3 | (missing) | (missing) | | plasma anion | 06:05 | [facility] | | | | gap 4 | | [facility] | | | | + + + +-------+ + + + + | Serum or plasma aspartate aminotransferase measurement (enzymatic activity/volume) | + + + + + +------+ + + | Serum or | 2022-10-15 | [facility] | 19 | (missing) | (missing) | | plasma | 06:05 | [facility] | | | | aspartate | | Hospital | | | | | aminotransfe | | | | | | | rase | | | | | | | measurement | | | | | | | (enzymatic | | | | | | | activity/vol | | | | | | | ume) | | | | | | + + + +------+ + + + + | Serum or plasma total bilirubin measurement (mass/volume) | + + + + + +-------+ + + | Serum or | 2022-10-15 | [facility] | 5.1 | (missing) | (missing) | | plasma total | 06:05 | [facility] | | | | bilirubin | | [facility] | | | | | measurement | | | | | | | (mass/volume | | | | | | | ) | | | | | | + + + +-------+ + + + + | Serum or plasma carbon dioxide, total measurement (moles/volume) | + + + + + +------+ + + | Serum or | 2022-10-15 | [facility] | 37 | (missing) | (missing) | | plasma | 06:05 | [facility] | | | | carbon | | Hospital | | | | | dioxide, | | | | | | | total | | | | | | | measurement | | | | | | | (moles/volum | | | | | | | e) | | | | | | + + + +------+ + + + + | Serum or plasma chloride measurement (moles/volume) | + + + + + +------+ + + | Serum or | 2022-10-15 | [facility] | 96 | (missing) | (missing) | | plasma | 06:05 | [facility] | | | | chloride | | [facility] | | | | | measurement | | | | | | | (moles/volum | | | | | | | e) | | | | | | + + + +------+ + + + + | Automated erythrocyte distribution width | + + + + + +--------+ + + | Automated | 2022-10-15 | [facility] | 22.3 | (missing) | (missing) | | erythrocyte | 06:05 | [facility] | | | | distribution | | [facility] | | | | | width | | | | | | + + + +--------+ + + + + | Serum or plasma creatinine measurement (mass/volume) | + + + + + +--------+ + + | Serum or | 2022-10-15 | [facility] | 1.07 | (missing) | (missing) | | plasma | 06:05 | [facility] | | | creatinine | | [facility] | | | | | measurement | | | | | | | (mass/volume | | | | | | | ) | | | | | | + + + +--------+ + + + + | Serum globulin measurement (mass/volume) | + + + + + +-------+ + + | Serum | 2022-10-15 | [facility] | 3.9 | (missing) | (missing) | | globulin | 06:05 | [facility] | measurement | | [facility] | | | | | (mass/volume | | | | | | | ) | | | | | | + + + +-------+ + + + + | Whole blood glucose measurement using handheld analyzer (mass/volume) | + + + + + +-------+ + + | Whole blood | 2022-10-15 | [facility] | 181 | (missing) | (missing) | | glucose | 11:37 | [facility] | | | | measurement | | [facility] | | | | | using | | | | | | | handheld | | | | | | | analyzer | | | | | | | (mass/volume | | | | | | | ) | | | | | | + + + +-------+ + + + + | Serum or plasma glucose measurement (mass/volume) | + + + + + +-------+ + + | Serum or | 2022-10-15 | [facility] | 200 | (missing) | (missing) | | plasma | 06:05 | [facility] | | | | glucose | | [facility] | | | | | measurement | | | | | | | (mass/volume | | | | | | | ) | | | | | | + + + +-------+ + + + + | Serum or plasma potassium measurement (moles/volume) | + + + + + +-------+ + + | Serum or | 2022-10-15 | [facility] | 3.3 | (missing) | (missing) | | plasma | 06:05 | [facility] | | | potassium | | [facility] | | | | | measurement | | | | | | | (moles/volum | | | | | | | e) | | | | | | + + + +-------+ + + + + | Serum or plasma protein measurement (mass/volume) | + + + + + +-------+ + + | Serum or | 2022-10-15 | [facility] | 6.3 | (missing) | (missing) | | plasma | 06:05 | [facility] | | | | protein | | [facility] | | | | | measurement | | | | | | | (mass/volume | | | | | | | ) | | | | | | + + + +-------+ + + + + | Serum or plasma sodium measurement (moles/volume) | + + + + + +-------+ + + | Serum or | 2022-10-15 | [facility] | 134 | (missing) | (missing) | | plasma | 06:05 | [facility] | | | | sodium | | [facility] | | | | | measurement | | | | | | | (moles/volum | | | | | | | e) | | | | | | + + + +-------+ + + + + | Serum or plasma urea nitrogen measurement (mass/volume) | + + + + + +------+ + + | Serum or | 2022-10-15 | [facility] | 24 | (missing) | (missing) | | plasma urea | 06:05 | [facility] | [facility] | nitrogen | | [facility] | | | | | measurement | | | | | | | (mass/volume | | | | | | | ) | | | | | | + + + +------+ + + + + | Serum or plasma urea nitrogen/creatinine mass ratio | + + + + + +---------+ + + | Serum or | 2022-10-15 | [facility] | 22.42 | (missing) | (missing) | | plasma urea | 06:05 | [facility] | | | | nitrogen/cre | | Hospital | | | | | atinine mass | | | | | | | ratio | | | | | | + + + +---------+ + + + + | Transf Band Num Patient | + + + + + + + + + | Transf Band | (no date) | [facility] | BLOOD IN | (missing) | (missing) | | Num Patient | [facility] | | | | + + + + + + + + + | Automated blood monocyte count as percentage of total leukocytes | + + + + + +-------+ + + | Automated | 2022-10-15 | [facility] | 4.6 | (missing) | (missing) | | blood | 06:05 | [facility] | | | | monocyte | | Hospital | | | | | count as | | | | | | | percentage | | | | | | | of total | | | | | | | leukocytes | | | | | | + + + +-------+ + + + + | Blood leukocytes automated count (number/volume) | + + + + + +--------+ + + | Blood | 2022-10-15 | [facility] | 10.1 | (missing) | (missing) | | leukocytes | 06:05 | [facility] | | | | automated | | Hospital | | | | | count | | | | | | | (number/volu | | | | | | | me) | | | | | | + + + +--------+ + + + + | Serum or plasma alkaline phosphatase measurement (enzymatic activity/volume) | + + + + + +------+ + + | Serum or | 2022-10-15 | [facility] | 77 | (missing) | (missing) | | plasma | 06:05 | [facility] | | | | alkaline | | [facility] | | | | | phosphatase | | | | | | | measurement | | | | | | | (enzymatic | | | | | | | activity/vol | | | | | | | ume) | | | | | | + + + +------+ + + + + | Automated blood basophil count as percentage of total leukocytes | + + + + + +-------+ + + | Automated | 2022-10-15 | [facility] | 0.6 | (missing) | (missing) | | blood | 06:05 | [facility] | | | | basophil | | Hospital | | | | | count as | | | | | | | percentage | | | | | | | of total | | | | | | | leukocytes | | | | | | + + + +-------+ + + + + | Automated blood eosinophil count as percentage of total leukocytes | + + + + + +-------+ + + | Automated | 2022-10-15 | [facility] | 0.3 | (missing) | (missing) | | blood | 06:05 | [facility] | | | | eosinophil | | Hospital | | | | | count as | | | | | | | percentage | | | | | | | of total | | | | | | | leukocytes | | | | | | + + + +-------+ + + + + | Blood hemoglobin measurement (mass/volume) | + + + + + +-------+ + + | Blood | 2022-10-15 | [facility] | 7.7 | (missing) | (missing) | | hemoglobin | 06:05 | [facility] | [facility] | measurement | | [facility] | | | | | (mass/volume | | | | | | | ) | | | | | | + + + +-------+ + + + + | Automated blood hematocrit | + + + + + +--------+ + + | Automated | 2022-10-15 | [facility] | 24.5 | (missing) | (missing) | | blood | 06:05 | [facility] | | | hematocrit | | [facility] | | | | + + + +--------+ + + + + | Automated blood lymphocyte count as percentage ot total leukocytes | + + + + + +-------+ + + | Automated | 2022-10-15 | [facility] | 8.9 | (missing) | (missing) | | blood | 06:05 | [facility] | | | | lymphocyte | | Hospital | | | | | count as | | | | | | | percentage | | | | | | | ot total | | | | | | | leukocytes | | | | | | + + + +-------+ + + + + | Automated blood neutrophil count as percentage of total leukocytes | + + + + + +--------+ + + | Automated | 2022-10-15 | [facility] | 85.6 | (missing) | (missing) | | blood | 06:05 | [facility] | | | | neutrophil | | Hospital | | | | | count as | | | | | | | percentage | | | | | | | of total | | | | | | | leukocytes | | | | | | + + + +--------+ + + + + | Automated blood platelet count (count/volume) | + + + + + +-------+ + + | Automated | 2022-10-15 | [facility] | 250 | (missing) | (missing) | | blood | 06:05 | [facility] | | | | platelet | | [facility] | | | | | count | | | | | | | (count/volum | | | | | | | e) | | | | | | + + + +-------+ + + + + | Automated erythrocyte mean corpuscular hemoglobin (mass per erythrocyte) | + + + + + +--------+ + + | Automated | 2022-10-15 | [facility] | 25.6 | (missing) | (missing) | | erythrocyte | 06:05 | [facility] | | | | mean | | Hospital | | | | | corpuscular | | | | | | | hemoglobin | | | | | | | (mass per | | | | | | | erythrocyte) | | | | | | | | | | | | | + + + +--------+ + + + + | Automated erythrocyte mean corpuscular hemoglobin concentration measurement | | (mass/volume) | + + + + + +--------+ + + | Automated | 2022-10-15 | [facility] | 31.5 | (missing) | (missing) | | erythrocyte | 06:05 | [facility] | | | | mean | | Hospital | | | | | corpuscular | | | | | | | hemoglobin | | | | | | | concentratio | | | | | | | n | | | | | | | measurement | | | | | | | (mass/volume | | | | | | | ) | | | | | | + + + +--------+ + + + + | Automated erythrocyte mean corpuscular volume | + + + + + +--------+ + + | Automated | 2022-10-15 | [facility] | 81.0 | (missing) | (missing) | | erythrocyte | 06:05 | [facility] | | | | mean | | [facility] | | | | | corpuscular | | | | | | | volume | | | | | | + + + +--------+ + + + + | Blood erythrocytes automated count (number/volume) | + + + + + +--------+ + + | Blood | 2022-10-15 | [facility] | 3.02 | (missing) | (missing) | | erythrocytes | 06:05 | [facility] | | | | | automated | | [facility] | | | | | count | | | | | | | (number/volu | | | | | | | me) | | | | | | + + + +--------+ + + + + | Glomerular filtration rate/1.73 sq M.predicted [Volume Rate/Area] inSerum, Plasma or | | Blood by Creatinine-based formula (CKD-EPI 2020) | + + + + + +------+ + + | Glomerular | 2022-10-15 | [facility] | 59 | (missing) | (missing) | | filtration | 06:05 | [facility] | | | | | rate/1.73 sq | | Hospital | | | | | M.predicted | | | | | | | [Volume | | | | | | | Rate/Area] | | | | | | | inSerum, | | | | | | | Plasma or | | | | | | | Blood by | | | | | | | Creatinine-b | | | | | | | ased formula | | | | | | | (CKD-EPI | | | | | | | 2020) | | | | | | + + + +------+ + + Social History + + + + | date | description | facility | + + + + | 2015-11-27 00:00 | Tobacco smoking | [facility] | | | consumption unknown | [facility] | + + + + | 2022-10-15 00:00 | Unknown if ever smoked | [facility] | + + + + | 2022-10-27 00:00 | Unknown if ever smoked | [facility] | + + + + | 2022-12-01 00:00 | Unknown if ever smoked | [facility] | + + + + | 2022-12-10 00:00 | Unknown if ever smoked | [facility] | + + + + Vital Signs + + + +---------+ | date | measurement | value | units | + + + +---------+ | 2022-10-13 00:00 | BMI | 50.5 | kg/m2 | + + + +---------+ | 2022-10-13 00:00 | height_metric | 170.18 | cm | + + + +---------+ | 2022-10-13 00:00 | height_standard | 67 | in | + + + +---------+ | 2022-10-13 00:00 | weight_metric | 146.3 | kg | + + + +---------+ | 2022-10-13 00:00 | weight_standard | 322.54 | lb | + + + +---------+ | 2022-10-15 00:00 | BP_diastolic | 80 | mmHg | + + + +---------+ | 2022-10-15 00:00 | BP_systolic | 112 | mmHg | + + + +---------+ | 2022-10-15 00:00 | heart_rate | 83 | /min | + + + +---------+ | 2022-10-15 00:00 | o2_saturation | 94 | % | + + + +---------+ | 2022-10-15 00:00 | respiration_rate | 20 | /min | + + + +---------+ | 2022-10-15 00:00 | temperature_metric | 36.17 | C | | | | | | + + + +---------+ | 2022-10-15 00:00 | | 97.1 | F | | | temperature_standar | | | | | d | | | + + + +---------+ | 2022-10-25 00:00 | BMI | 50.1 | kg/m2 | + + + +---------+ | 2022-10-25 00:00 | height_metric | 170.18 | cm | + + + +---------+ | 2022-10-25 00:00 | height_standard | 67 | in | + + + +---------+ | 2022-10-25 00:00 | weight_metric | 145 | kg | + + + +---------+ | 2022-10-25 00:00 | weight_standard | 319.67 | lb | + + + +---------+ | 2022-10-27 00:00 | BP_diastolic | 71 | mmHg | + + + +---------+ | 2022-10-27 00:00 | BP_systolic | 141 | mmHg | + + + +---------+ | 2022-10-27 00:00 | heart_rate | 88 | /min | + + + +---------+ | 2022-10-27 00:00 | o2_saturation | 96 | % | + + + +---------+ | 2022-10-27 00:00 | respiration_rate | 16 | /min | + + + +---------+ | 2022-10-27 00:00 | temperature_metric | 36.56 | C | | | | | | + + + +---------+ | 2022-10-27 00:00 | | 97.8 | F | | | temperature_standar | | | | | d | | | + + + +---------+ | 2022-12-01 00:00 | BMI | 47.1 | kg/m2 | + + + +---------+ | 2022-12-01 00:00 | BP_diastolic | 83 | mmHg | + + + +---------+ | 2022-12-01 00:00 | BP_systolic | 121 | mmHg | + + + +---------+ | 2022-12-01 00:00 | heart_rate | 65 | /min | + + + +---------+ | 2022-12-01 00:00 | height_metric | 170.18 | cm | + + + +---------+ | 2022-12-01 00:00 | height_standard | 67 | in | + + + +---------+ | 2022-12-01 00:00 | o2_saturation | 96 | % | + + + +---------+ | 2022-12-01 00:00 | respiration_rate | 18 | /min | + + + +---------+ | 2022-12-01 00:00 | temperature_metric | 36.33 | C | | | | | | + + + +---------+ | 2022-12-01 00:00 | | 97.4 | F | | | temperature_standar | | | | | d | | | + + + +---------+ | 2022-12-01 00:00 | weight_metric | 136.4 | kg | + + + +---------+ | 2022-12-01 00:00 | weight_standard | 300.71 | lb | + + + +---------+ | 2022-12-10 00:00 | BMI | 46.0 | kg/m2 | + + + +---------+ | 2022-12-10 00:00 | BP_diastolic | 57 | mmHg | + + + +---------+ | 2022-12-10 00:00 | BP_systolic | 109 | mmHg | + + + +---------+ | 2022-12-10 00:00 | heart_rate | 88 | /min | + + + +---------+ | 2022-12-10 00:00 | height_metric | 170.18 | cm | + + + +---------+ | 2022-12-10 00:00 | height_standard | 67 | in | + + + +---------+ | 2022-12-10 00:00 | o2_saturation | 90 | % | + + + +---------+ | 2022-12-10 00:00 | respiration_rate | 17 | /min | + + + +---------+ | 2022-12-10 00:00 | temperature_metric | 37.17 | C | | | | | | + + + +---------+ | 2022-12-10 00:00 | | 98.9 | F | | | temperature_standar | | | | | d | | | + + + +---------+ | 2022-12-10 00:00 | weight_metric | 133.36 | kg | + + + +---------+ | 2022-12-10 00:00 | weight_standard | 294 | lb | + + + +---------+ | 2022-12-10 00:00 | weight_standard | 294.01 | lb | + + + +---------+"
--- OUTSIDE RECORDS SUMMARY | ~2022-12-15 | XMS | Continuity of Care Document ---
Demographics + + + | Address | [address] | | | [place] [address] | + + + | Preferred Language | Unknown | + + + | Marital Status | | + + + | Lutheran Affiliation | Unknown | + + + | Race | White | + + + | Ethnic Group | Not or | + + + Author + + + | Author | [address] | + + + | Organization | [facility] | + + + | Address | [address] | | | [place] [address] | + + + | Phone | | + + + Care Team Providers + + + + | Care Commercial Kitchen Service Technician Name | Role | Phone | + [...] 00:00 | No vaccine administered | [facility] | + + + + Medications + + + + | date | description | facility | + + + + | 2022-10-15 00:00 | OXYCODONE HCL | [facility] | + + + + | 2022-10-15 00:00 | oxycodone hydrochloride 5 | [facility] | | | MG Oral Tablet | | + + + + | 2022-12-01 00:00 | APIXABAN | [facility] | + + + + | 2022-12-10 00:00 | APIXABAN | [facility] | + + + + | 2022-10-15 00:00 | 0.5 ML dulaglutide 3 MG/ML | [facility] | | | Auto-Injector [Trulicity] | | + + + + | 2022-10-27 00:00 | DULAGLUTIDE | [facility] | + + + + | 2022-12-01 00:00 | DULAGLUTIDE | [facility] | + + + + | 2022-12-10 00:00 | DULAGLUTIDE | [facility] | + + + + | 2022-10-15 00:00 | Microencapsulated | [facility] | | | potassium chloride 20 MEQ | | | | Extended Release | | + + + + | 2022-10-15 00:00 | POTASSIUM CHLORIDE | [facility] | + + + + | 2022-10-15 00:00 | POTASSIUM CHLORIDE | [facility] | + + + + | 2022-12-01 00:00 | POTASSIUM CHLORIDE | [facility] | + + + + | 2022-12-01 00:00 | POTASSIUM CHLORIDE | [facility] | + + + + | 2022-10-15 00:00 | 30 ACTUAT fluticasone | [facility] | | | furoate 0.1 MG/ACTUAT / | | | | umeclidinium 0 | | + + + + | 2022-10-27 00:00 | | [facility] | | | Fluticasone/Umeclidin/Vilan | | | | ter | | + + + + | 2022-12-01 00:00 | | [facility] | | | Fluticasone/Umeclidin/Vilan | | | | ter | | + + + + | 2022-12-10 00:00 | | [facility] | | | Fluticasone/Umeclidin/Vilan | | | | ter | | + + + + | 2021-09-27 00:00 | lisinopril 20 mg / | [facility] | | | hydrochlorothiazide 25 mg | [facility] | | | oral tablet | | + + + + | 2022-10-27 00:00 | NAPROXEN | [facility] | + + + + | 2022-12-01 00:00 | NAPROXEN | [facility] | + + + + | 2022-12-10 00:00 | NAPROXEN | [facility] | + + + + | 2022-10-15 00:00 | naproxen 500 MG Oral | [facility] | | | Tablet | | + + + + | 2022-10-15 00:00 | TORSEMIDE | [facility] | + + + + | 2022-10-15 00:00 | TORSEMIDE | [facility] | + + + + | 2022-12-01 00:00 | TORSEMIDE | [facility] | + + + + | 2022-12-01 00:00 | TORSEMIDE | [facility] | + + + + | 2022-10-15 00:00 | torsemide 20 MG Oral | [facility] | | | Tablet | | + + + + | 2022-10-27 00:00 | MAGNESIUM OXIDE | [facility] | + + + + | 2022-10-27 00:00 | MAGNESIUM OXIDE | [facility] | + + + + | 2021-09-27 [...] + | 2022-10-27 00:00 | HYDROCHLOROTHIAZIDE | [facility] | + + + + | 2022-12-01 00:00 | HYDROCHLOROTHIAZIDE | [facility] | + + + + | 2022-12-10 00:00 | HYDROCHLOROTHIAZIDE | [facility] | + + + + | 2022-10-15 00:00 | hydrochlorothiazide 25 MG | [facility] | | | Oral Tablet | | + + + + | 2022-10-27 00:00 | PIOGLITAZONE HCL | [facility] | + + + + | 2022-12-01 00:00 | PIOGLITAZONE HCL | [facility] | + + + + | 2022-12-10 00:00 | PIOGLITAZONE HCL | [facility] | + + + + | 2022-10-15 00:00 | pioglitazone 45 MG Oral | [facility] | | | Tablet | | + + + + | 2022-10-27 00:00 | Pregabalin | [facility] | + + + + | 2022-12-01 00:00 | Pregabalin | [facility] | + + + + | 2022-12-10 00:00 | Pregabalin | [facility] | + + + + | 2022-10-15 00:00 | pregabalin 150 MG Oral | [facility] | | | Capsule | | + + + + | 2022-12-10 00:00 | NITROFURANTOIN MONOHYD | [facility] | | | MACROCR | | + + + + | 2022-10-15 00:00 | 24 HR diltiazem | [facility] | | | hydrochloride 120 MG | | | | Extended Release Oral C | | + + + + | 2022-10-15 00:00 | DILTIAZEM HCL | [facility] | + + + + | 2022-10-15 00:00 | DILTIAZEM HCL | [facility] | + + + + | 2022-10-27 00:00 | ALBUTEROL SULFATE | [facility] | + + + + | 2022-12-01 00:00 | ALBUTEROL SULFATE | [facility] | + + + + | 2022-12-10 00:00 | ALBUTEROL SULFATE | [facility] | + + + + | 2022-10-15 00:00 | [id number] 200 ACTUAT | [facility] | | | albuterol 0.09 MG/ACTUAT | | | | Metered Dose I | | + + + + | 2022-10-27 00:00 | Rosuvastatin Calcium | [facility] | + + + + | 2022-12-01 00:00 | Rosuvastatin Calcium | [facility] | + + + + | 2022-12-10 00:00 | Rosuvastatin Calcium | [facility] | + + + + | 2022-10-15 00:00 | rosuvastatin calcium 20 MG | [facility] | | | Oral Tablet | | + + + + | 2022-10-27 00:00 | METFORMIN HCL | [facility] | + + + + | 2022-12-01 00:00 | METFORMIN HCL | [facility] | + + + + | 2022-12-10 00:00 | METFORMIN HCL | [facility] | + + + + | 2022-10-15 00:00 | metformin hydrochloride | [facility] | | | 1000 MG Oral Tablet | | + + + + | 2021-09-27 00:00 | metformin hydrochloride | [facility] | | | 1000 mg oral tablet | [facility] | + + + + | 2022-10-15 00:00 | 24 HR metoprolol succinate | [facility] | | | 25 MG Extended Release | | | | Oral Table | | + + + + | 2022-10-15 00:00 | METOPROLOL SUCCINATE | [facility] | + + + + | 2022-10-15 00:00 | METOPROLOL SUCCINATE | [facility] | + + + + | 2022-10-27 00:00 | LEVOTHYROXINE SODIUM | [facility] | + + + + | 2022-12-01 00:00 | LEVOTHYROXINE SODIUM | [facility] | + + + + | 2022-12-10 00:00 | LEVOTHYROXINE SODIUM | [facility] | + + + + | 2022-10-15 00:00 | levothyroxine sodium 0.137 | [facility] | | | MG Oral Tablet | [...] 2022-10-04 00:00 | Atrial fibrillation with | [facility] | | | rapid ventricular response | | + + + + | 2022-10-04 00:00 | Atrial fibrillation with | [facility] | | | rapid ventricular response | | + + + + | 2022-10-04 00:00 | Pleural effusion | [facility] | + + + + | 2022-10-04 00:00 | Pleural effusion | [facility] | + + + + | 2022-10-04 [...] + + + | 2022-10-04 16:42 | NURSING HOME (CURRENT) USE OF | [facility] | | | ANTICOAGULANTS | | + + + + | 2022-10-04 16:42 | NURSING HOME (CURRENT) USE OF | [facility] | | | INSULIN | | + + + + | 2022-10-04 16:42 | HORMONE REPLACEMENT | [facility] | | | THERAPY | | + + + + | 2022-10-04 16:42 | OTHER NURSING HOME (CURRENT) | [facility] | | | DRUG [...] | 2022-10-25 00:00 | Morbid obesity | [facility] | + + + + | 2022-10-25 00:00 | Morbid obesity | [facility] | + + + + | 2022-10-25 00:00 | Acute diastolic congestive | [facility] | | | heart failure | | + + + + | 2022-10-25 00:00 | Acute diastolic congestive | [facility] | | | heart failure | | + + + + | 2022-10-25 00:00 | Acute respiratory failure | [facility] | | | with hypercapnia | | + + + + | 2022-10-25 00:00 | Acute respiratory failure | [facility] | | | with hypercapnia | | [...] + + + | 2022-10-25 13:36 | NURSING HOME (CURRENT) USE OF | [facility] | | | ANTICOAGULANTS | | + + + + | 2022-10-25 13:36 | PRODUCE SERVICE TEAM MEMBER (CURRENT) USE OF | [facility] | | | INSULIN | | + + + + | 2022-10-25 13:36 | HORMONE REPLACEMENT | [facility] | | | THERAPY | | + + + + | 2022-10-25 13:36 | OTHER PRODUCE SERVICE TEAM MEMBER (CURRENT) | [facility] | | | DRUG [...] 00:00 | Congestive heart failure | [facility] | + + + + | 2022-11-28 00:00 | Congestive heart failure | [facility] | + + + + | [...] + + + | 2022-11-28 14:22 | PRODUCE SERVICE TEAM MEMBER (CURRENT) USE OF | [facility] | | | INHALED STEROIDS | | + + + + | 2022-11-28 14:22 | HORMONE REPLACEMENT | [facility] | | | THERAPY | | + + + + | 2022-11-28 14:22 | OTHER PRODUCE SERVICE TEAM MEMBER (CURRENT) | [facility] | | | DRUG [...] | 2022-12-10 00:00 | Uncontrolled diabetes | [facility] | | | mellitus | | + + + + | 2022-12-10 00:00 | Urinary tract infection | [facility] | + + + + | 2022-12-10 [...] + + + | 2022-12-10 10:39 | NURSING HOME (CURRENT) USE OF | [facility] | | | ANTICOAGULANTS | | + + + + | 2022-12-10 10:39 | PRODUCE SERVICE TEAM MEMBER (CURRENT) USE OF | [facility] | | | ORAL HYPOGLYCEMIC DRUGS | | + + + + | 2022-12-10 10:39 | OTHER PRODUCE SERVICE TEAM MEMBER (CURRENT) | [facility] | | | DRUG [...] 2022-10-13 00:00 | EXCISION OF HEMORRHOIDAL | [facility] | | | PLEXUS, OPEN APPROACH | | + + + + | 2022-10-11 00:00 | EXCISION OF SIGMOID COLON, | [facility] | | | ENDO, DIAGN | | + + + + | 2022-10-13 00:00 | Hemorrhoidectomy | [facility] | + + + + | 2022-10-11 00:00 | TRANSFUSE NONAUT RED BLOOD | [facility] | | | CELLS IN PERIPH VEIN, PERC | | | | | | + + + + | 2022-10-11 00:00 | Colonoscopy with biopsy of | [facility] | | | colon | | + + + + | 2022-11-28 00:00 | ASSISTANCE WITH | [facility] | | | RESPIRATORY VENTILATION, | | [...] | | (unavailable | | [facility] | [id number] | | | | ) | | [facility] | [address] | | | + + + + + + + + + | Result panel 4 | + + + + + + + + + | | (no date) | [facility] | | (missing) | (missing) | | (unavailable | | [facility] | [id number] | | | | ) | | [...] 00:00 | Unknown if ever smoked | [facility] | + + + + | 2022-10-27 00:00 | Unknown if ever smoked | [facility] | + + + + | 2022-12-01 00:00 | Unknown if ever smoked | [facility] | + + + + | 2022-12-10 00:00 | Unknown if ever smoked | [facility] | + + + + Vital [...]
--- OUTSIDE RECORDS SUMMARY | ~2022-12-15 | XMS | Continuity of Care Document ---
Demographics + + + | Address | [address] | | | [place] [address] | + + + | Preferred Language | Unknown | + + + | Marital Status | | + + + | Bahai Affiliation | Unknown | + + + | Race | White | + + + | Ethnic Group | Not or | + + + Author + + + | Author | [facility] | + + + | Organization | [facility] | + + + | Address | [address] | | | [place] [address] | + + + | Phone | | + + + Care Team Providers + + + + | Care Design Engineering Technician Name | Role | Phone | [...] 00:00 | No vaccine administered | [facility] | + + + + Medications + + + + | date | description | facility | + + + + | 2022-10-15 00:00 | OXYCODONE HCL | [facility] | + + + + | 2022-10-15 00:00 | oxycodone hydrochloride 5 | [facility] | | | MG Oral Tablet | | + + + + | 2022-12-01 00:00 | APIXABAN | [facility] | + + + + | 2022-12-10 00:00 | APIXABAN | [facility] | + + + + | 2022-10-15 00:00 | 0.5 ML dulaglutide 3 MG/ML | [facility] | | | Auto-Injector [Trulicity] | | + + + + | 2022-10-27 00:00 | DULAGLUTIDE | [facility] | + + + + | 2022-12-01 00:00 | DULAGLUTIDE | [facility] | + + + + | 2022-12-10 00:00 | DULAGLUTIDE | [facility] | + + + + | 2022-10-15 00:00 | Microencapsulated | [facility] | | | potassium chloride 20 MEQ | | | | Extended Release | | + + + + | 2022-10-15 00:00 | POTASSIUM CHLORIDE | [facility] | + + + + | 2022-10-15 00:00 | POTASSIUM CHLORIDE | [facility] | + + + + | 2022-12-01 00:00 | POTASSIUM CHLORIDE | [facility] | + + + + | 2022-12-01 00:00 | POTASSIUM CHLORIDE | [facility] | + + + + | 2022-10-15 00:00 | 30 ACTUAT fluticasone | [facility] | | | furoate 0.1 MG/ACTUAT / | | | | umeclidinium 0 | | + + + + | 2022-10-27 00:00 | | [facility] | | | Fluticasone/Umeclidin/Vilan | | | | ter | | + + + + | 2022-12-01 00:00 | | [facility] | | | Fluticasone/Umeclidin/Vilan | | | | ter | | + + + + | 2022-12-10 00:00 | | [facility] | | | Fluticasone/Umeclidin/Vilan | | | | ter | | + + + + | 2021-09-27 00:00 | lisinopril 20 mg / | [facility] | | | hydrochlorothiazide 25 mg | [facility] | | | oral tablet | | + + + + | 2022-10-27 00:00 | NAPROXEN | [facility] | + + + + | 2022-12-01 00:00 | NAPROXEN | [facility] | + + + + | 2022-12-10 00:00 | NAPROXEN | [facility] | + + + + | 2022-10-15 00:00 | naproxen 500 MG Oral | [facility] | | | Tablet | | + + + + | 2022-10-15 00:00 | TORSEMIDE | [facility] | + + + + | 2022-10-15 00:00 | TORSEMIDE | [facility] | + + + + | 2022-12-01 00:00 | TORSEMIDE | [facility] | + + + + | 2022-12-01 00:00 | TORSEMIDE | [facility] | + + + + | 2022-10-15 00:00 | torsemide 20 MG Oral | [facility] | | | Tablet | | + + + + | 2022-10-27 00:00 | MAGNESIUM OXIDE | [facility] | + + + + | 2022-10-27 00:00 | MAGNESIUM OXIDE | [facility] | + + + + | [...] + | 2022-10-27 00:00 | HYDROCHLOROTHIAZIDE | [facility] | + + + + | 2022-12-01 00:00 | HYDROCHLOROTHIAZIDE | [facility] | + + + + | 2022-12-10 00:00 | HYDROCHLOROTHIAZIDE | [facility] | + + + + | 2022-10-15 00:00 | hydrochlorothiazide 25 MG | [facility] | | | Oral Tablet | | + + + + | 2022-10-27 00:00 | PIOGLITAZONE HCL | [facility] | + + + + | 2022-12-01 00:00 | PIOGLITAZONE HCL | [facility] | + + + + | 2022-12-10 00:00 | PIOGLITAZONE HCL | [facility] | + + + + | 2022-10-15 00:00 | pioglitazone 45 MG Oral | [facility] | | | Tablet | | + + + + | 2022-10-27 00:00 | Pregabalin | [facility] | + + + + | 2022-12-01 00:00 | Pregabalin | [facility] | + + + + | 2022-12-10 00:00 | Pregabalin | [facility] | + + + + | 2022-10-15 00:00 | pregabalin 150 MG Oral | [facility] | | | Capsule | | + + + + | 2022-12-10 00:00 | NITROFURANTOIN MONOHYD | [facility] | | | MACROCR | | + + + + | 2022-10-15 00:00 | 24 HR diltiazem | [facility] | | | hydrochloride 120 MG | | | | Extended Release Oral C | | + + + + | 2022-10-15 00:00 | DILTIAZEM HCL | [facility] | + + + + | 2022-10-15 00:00 | DILTIAZEM HCL | [facility] | + + + + | 2022-10-27 00:00 | ALBUTEROL SULFATE | [facility] | + + + + | 2022-12-01 00:00 | ALBUTEROL SULFATE | [facility] | + + + + | 2022-12-10 00:00 | ALBUTEROL SULFATE | [facility] | + + + + | 2022-10-15 00:00 | [id number] 200 ACTUAT | [facility] | | | albuterol 0.09 MG/ACTUAT | | | | Metered Dose I | | + + + + | 2022-10-27 00:00 | Rosuvastatin Calcium | [facility] | + + + + | 2022-12-01 00:00 | Rosuvastatin Calcium | [facility] | + + + + | 2022-12-10 00:00 | Rosuvastatin Calcium | [facility] | + + + + | 2022-10-15 00:00 | rosuvastatin calcium 20 MG | [facility] | | | Oral Tablet | | + + + + | 2022-10-27 00:00 | METFORMIN HCL | [facility] | + + + + | 2022-12-01 00:00 | METFORMIN HCL | [facility] | + + + + | 2022-12-10 00:00 | METFORMIN HCL | [facility] | + + + + | 2022-10-15 00:00 | metformin hydrochloride | [facility] | | | 1000 MG Oral Tablet | | + + + + | 2021-09-27 00:00 | metformin hydrochloride | [facility] | | | 1000 mg oral tablet | [facility] | + + + + | 2022-10-15 00:00 | 24 HR metoprolol succinate | [facility] | | | 25 MG Extended Release | | | | Oral Table | | + + + + | 2022-10-15 00:00 | METOPROLOL SUCCINATE | [facility] | + + + + | 2022-10-15 00:00 | METOPROLOL SUCCINATE | [facility] | + + + + | 2022-10-27 00:00 | LEVOTHYROXINE SODIUM | [facility] | + + + + | 2022-12-01 00:00 | LEVOTHYROXINE SODIUM | [facility] | + + + + | 2022-12-10 00:00 | LEVOTHYROXINE SODIUM | [facility] | + + + + | 2022-10-15 00:00 | levothyroxine sodium 0.137 | [facility] | | | MG Oral Tablet [...] 2022-10-04 00:00 | Atrial fibrillation with | [facility] | | | rapid ventricular response | | + + + + | 2022-10-04 00:00 | Atrial fibrillation with | [facility] | | | rapid ventricular response | | + + + + | 2022-10-04 00:00 | Pleural effusion | [facility] | + + + + | 2022-10-04 00:00 | Pleural effusion | [facility] | + + + + | [...] + + + | 2022-10-04 16:42 | [facility] (CURRENT) USE OF | [facility] | | | ANTICOAGULANTS | | + + + + | 2022-10-04 16:42 | [facility] (CURRENT) USE OF | [facility] | | | INSULIN | | + + + + | 2022-10-04 16:42 | HORMONE REPLACEMENT | [facility] | | | THERAPY | | + + + + | 2022-10-04 16:42 | OTHER [facility] (CURRENT) | [facility] | | | DRUG [...] | 2022-10-25 00:00 | Morbid obesity | [facility] | + + + + | 2022-10-25 00:00 | Morbid obesity | [facility] | + + + + | 2022-10-25 00:00 | Acute diastolic congestive | [facility] | | | heart failure | | + + + + | 2022-10-25 00:00 | Acute diastolic congestive | [facility] | | | heart failure | | + + + + | 2022-10-25 00:00 | Acute respiratory failure | [facility] | | | with hypercapnia | | + + + + | 2022-10-25 00:00 | Acute respiratory failure | [facility] | | | with hypercapnia | [...] + + + | 2022-10-25 13:36 | [facility] (CURRENT) USE OF | [facility] | | | ANTICOAGULANTS | | + + + + | 2022-10-25 13:36 | PERSONAL SECRETARY (CURRENT) USE OF | [facility] | | | INSULIN | | + + + + | 2022-10-25 13:36 | HORMONE REPLACEMENT | [facility] | | | THERAPY | | + + + + | 2022-10-25 13:36 | OTHER PERSONAL SECRETARY (CURRENT) | [facility] | | | DRUG [...] 00:00 | Congestive heart failure | [facility] | + + + + | 2022-11-28 00:00 | Congestive heart failure | [facility] | + + + + | [...] + + | 2022-11-28 14:22 | PERSONAL SECRETARY (CURRENT) USE OF | [facility] | | | INHALED STEROIDS | | + + + + | 2022-11-28 14:22 | HORMONE REPLACEMENT | [facility] | | | THERAPY | | + + + + | 2022-11-28 14:22 | OTHER PERSONAL SECRETARY (CURRENT) | [facility] | | | DRUG [...] | 2022-12-10 00:00 | Uncontrolled diabetes | [facility] | | | mellitus | | + + + + | 2022-12-10 00:00 | Urinary tract infection | [facility] | + + + + | [...] + + + | 2022-12-10 10:39 | [facility] (CURRENT) USE OF | [facility] | | | ANTICOAGULANTS | | + + + + | 2022-12-10 10:39 | PERSONAL SECRETARY (CURRENT) USE OF | [facility] | | | ORAL HYPOGLYCEMIC DRUGS | | + + + + | 2022-12-10 10:39 | OTHER PERSONAL SECRETARY (CURRENT) | [facility] | | | DRUG [...] 2022-10-13 00:00 | EXCISION OF HEMORRHOIDAL | [facility] | | | PLEXUS, OPEN APPROACH | | + + + + | 2022-10-11 00:00 | EXCISION OF SIGMOID COLON, | [facility] | | | ENDO, DIAGN | | + + + + | 2022-10-13 00:00 | Hemorrhoidectomy | [facility] | + + + + | 2022-10-11 00:00 | TRANSFUSE NONAUT RED BLOOD | [facility] | | | CELLS IN PERIPH VEIN, PERC | | | | | | + + + + | 2022-10-11 00:00 | Colonoscopy with biopsy of | [facility] | | | colon | | + + + + | 2022-11-28 00:00 | ASSISTANCE WITH | [facility] | | | RESPIRATORY VENTILATION, | [...] | | (unavailable | | [facility] | [id number] | | | | ) | | [facility] | [id number] | | | + + + + + + + + + | Result panel 4 | + + + + + + + + + | | (no date) | [facility] | | (missing) | (missing) | | (unavailable | | [facility] | [id number] | | | | ) | | [...] 00:00 | Unknown if ever smoked | [facility] | + + + + | 2022-10-27 00:00 | Unknown if ever smoked | [facility] | + + + + | 2022-12-01 00:00 | Unknown if ever smoked | [facility] | + + + + | 2022-12-10 00:00 | Unknown if ever smoked | [facility] | + + + + Vital [...]
[~2022-12-15 07:10] MED LIST changes: +ELIQUIS5 MG PO; +MACROBID 100 M100 MG PO
[2022-12-15 07:42] LABS: BASOPHILS 0.3 % (0-2); EOSINOPHILS 0.6 % (0-6); HEMATOCRIT 32.7 % (35.0-50.0); HEMOGLOBIN 10.2 g/dL (12.0-18.0); LYMPHOCYTES 21.3 % (24-44); MCH 24.9 (27-36); MCHC 31.3 g/dl (30-36); MCV 79.8 fl (81-99); MONOCYTES 7.6 % (0-12); NEUTROPHILS 70.2 % (39-80); PLATELET COUNT 349 K/uL (140-440); RDW 20.9 (10.5-15.0)
[2022-12-15 08:06] LABS: ALBUMIN 3.1 g/dL (3.4-5.0); ALBUMIN/GLOBULIN RATIO 0.54 (1.1-2.4); BILIRUBIN, TOTAL 1.9 ng/dL (0.2-1.0); BUN/CREATININE RATIO 26.69 (6.0-28.6); CALCIUM 10.6 mg/dL (8.5-10.1); CREATININE, SERUM 2.06 mg/dL (0.55-1.02); MAGNESIUM 2.4 mg/dL (1.8-2.4); PROTEIN, TOTAL 8.8 g/dL (6.4-8.2)
[2022-12-15 08:14] LABS: ANION GAP 5.3 (7-21); POTASSIUM 2.3 mmol/L (3.5-5.1)
[2022-12-15 11:49] LABS: BUN/CREATININE RATIO 26.98 (6.0-28.6); CALCIUM 10.1 mg/dL (8.5-10.1); CHLORIDE 81 mmol/L (98-107); CREATININE, SERUM 1.89 mg/dL (0.55-1.02); GLOMERULAR FILTRATION RATE,EST 30 mL/min (>60); POTASSIUM 2.6 mmol/L (3.5-5.1); UREA NITROGEN 51 mg/dL (7-18)
[2022-12-15 11:51] LABS: CARBON DIOXIDE > 45 mmol/L (21-32)
[2022-12-15 11:52] LABS: ANION GAP 8 (7-21)
--- NOTE | 2022-12-15 13:00 | NUR ---
PT SETTLES IN BED. CPOX ON. TELE MONITOR APPLIED. ADMISSION COMPLETED. ASSISTED PT TO COMMODE. PT IS DENYING PAIN. UP SBA PIVOT TO COMMODE. FWW FOR AMBULATION. ORAL POTASSIUM GIVEN. NO FURTHER NEEDS VOICED BY THE PATIENT. CALL LIGHT WITHIN REACH.
--- NOTE | 2022-12-15 14:32 | NUR ---
MED REC COMPLETE
[2022-12-15 14:47] VITALS: BP 133/89
--- NOTE | 2022-12-15 16:40 | NUR ---
PT RESTING IN BED WITH EYES CLOSED, CPAP IN PLACE, CPOX O2 SAT 94%. CALL LIGHT IN REACH.
[2022-12-15 17:03] LABS: BILIRUBIN, URINE NEGATIVE (negative); BLOOD/HGB, URINE LARGE (Negative); KETONE, URINE NEGATIVE (Negative); LEUK ESTERASE, URINE SMALL (negative); NITRITE, URINE NEGATIVE (negative)
[2022-12-15 17:09] LABS: BACTERIA, URINE RARE /hpf (negative); CASTS, URINE NONE SEEN \\lpf; COLLECTION TYPE, URINE CLEAN CATCH; CRYSTALS, URINE NONE SEEN (0-1+); EPITHELIAL CELLS, URINE SQUAMOUS 1+ /lpf (0-1+); REFLEX CULTURE, URINE Yes (No)
[2022-12-15 18:10] LABS: BUN/CREATININE RATIO 27.71 (6.0-28.6); CALCIUM 10.2 mg/dL (8.5-10.1); CREATININE, SERUM 1.84 mg/dL (0.55-1.02); POTASSIUM 2.6 mmol/L (3.5-5.1)
[2022-12-15 18:11] LABS: ANION GAP 4.6 (7-21)
[2022-12-15 18:14] VITALS: BP 95/56
--- NOTE | 2022-12-15 18:16 | NUR ---
ALL EVENING MEDICATIONS GIVEN. PT GIVEN DIET SODA. 250ML LEFT FOR NOC SHIFT. PT EDUCATED ABOUT FLUID RESTRICTION. NO FURTHER NEEDS VOICED BY THE PATIENT. CALL LIGHT WITHIN REACH.
--- NOTE | 2022-12-15 19:29 | NUR ---
RECEIVED REPORT FOR DAY SHIFT RN. PT LYING IN BED RESTING COMFORTABLY. BREATHING EVEN AND UNLABORED. O2 IN PLACE AT 4L. FAMILY MEMBER AT BEDSIDE. SAFETY PRECAUTIONS IN PLACE. NO NEEDS AT THIS TIME. CALL LIGHT WITHIN REACH.
[2022-12-15 20:24] VITALS: BP 115/59
--- NOTE | 2022-12-15 20:28 | EKG ---
[facility] [address] [place] [address] \T\ T wave abnormality, consider inferolateral ischemia Abnormal ECG When compared with ECG of 28-NOV-2022 11:31, ST now depressed in Lateral leads T wave inversion now evident in Inferior leads T wave inversion now evident in Anterolateral leads Confirmed by Albina Hilliard MD () on 12/15/2022 8:28:04 PM Electronically Signed By: ALBINA HILLIARD MD 12/15/222027 PATIENT NAME: JENNA MACKENZIE MARTA Electrocardiogram DATE OF : 62 PHYSICIAN: ALBINA HILLIARD MD REPORT #: [id number] REPORT IS CONFIDENTIAL AND NOT TO BE RELEASED WITHOUT AUTHORIZATION
[2022-12-15 22:14] LABS: BUN/CREATININE RATIO 25.87 (6.0-28.6); CALCIUM 10.1 mg/dL (8.5-10.1); CREATININE, SERUM 2.01 mg/dL (0.55-1.02); POTASSIUM 2.9 mmol/L (3.5-5.1)
[2022-12-15 22:15] LABS: ANION GAP 2.9 (7-21)
[2022-12-16 02:15] LABS: CALCIUM 9.9 mg/dL (8.5-10.1); CREATININE, SERUM 1.7 mg/dL (0.55-1.02); POTASSIUM 2.6 mmol/L (3.5-5.1)
--- NOTE | 2022-12-16 02:15 | NUR ---
PT POTASSIUM 2.6 AT THIS TIME DOWN FROM 2.9. PT IN NO ACUTE DISTRESS AND VITAL SIGNS STABLE. PER DR. HILLIARD, ORDERS TO GIVE SCHEDULED 2AM POTASSIUM PO AND CHECK LABS IN THE MORNING. WILL CONTINUE TO MONITOR.
[2022-12-16 02:16] LABS: ANION GAP 3.6 (7-21)
[2022-12-16 02:44] VITALS: BP 129/68
[2022-12-16 06:00] LABS: HEMATOCRIT 31.2 % (35.0-50.0); HEMOGLOBIN 9.6 g/dL (12.0-18.0)
[2022-12-16 06:01] LABS: BASOPHILS 0.8 % (0-2); EOSINOPHILS 0.7 % (0-6); LYMPHOCYTES 21.5 % (24-44); MCH 24.8 (27-36); MCHC 30.8 g/dl (30-36); MCV 80.4 fl (81-99); MONOCYTES 6.4 % (0-12); NEUTROPHILS 70.6 % (39-80); PLATELET COUNT 274 K/uL (140-440); RBC 3.89 M/ul (4.3-5.7); RDW 21.3 (10.5-15.0)
[2022-12-16 06:20] LABS: SMEAR REVIEW BLOOD SEE COMMENTS
[2022-12-16 06:21] LABS: ALBUMIN 2.9 g/dL (3.4-5.0); ALBUMIN/GLOBULIN RATIO 0.53 (1.1-2.4); BILIRUBIN, TOTAL 1.8 ng/dL (0.2-1.0); BUN/CREATININE RATIO 29.71 (6.0-28.6); CALCIUM 10.5 mg/dL (8.5-10.1); CREATININE, SERUM 1.75 mg/dL (0.55-1.02); MAGNESIUM 2.7 mg/dL (1.8-2.4); POTASSIUM 2.9 mmol/L (3.5-5.1); PROTEIN, TOTAL 8.4 g/dL (6.4-8.2)
[2022-12-16 06:22] LABS: ANION GAP 3.9 (7-21)
[2022-12-16 06:35] VITALS: BP 123/63
--- NOTE | 2022-12-16 07:15 | NUR ---
RECEIVED REPORT FROM TYRE FITTER RN. PT IS LAYING IN BED ON LEFT SIDE. PT REQUESTED WATER AND AGREED TO RECEIVE IT WITH HER MORNING MEDICATIONS. REENFORCED EDUCATION ON FLUID RESTRICTION. NO FURTHER NEEDS VOICED AT THE MOMENT. CALL LIGHT WITHIN REACH.
--- NOTE | 2022-12-16 07:53 | NUR ---
ENTERED PT ROOM. ASSISTED PT TO STANDING SCALE THEN TO CHAIR. PT WEIGHT WAS 285.4LBS. 250ML OF DIET SODA GIVEN TO PT FOR BREAKFEAST. ASSESSMENT PERFORMED. NO FURTHER NEEDS VOICED BY THE PATIENT. CALL LIGHT WITHIN REACH.
[2022-12-16 08:09] VITALS: BP 134/86
--- NOTE | 2022-12-16 08:15 | NUR ---
ALL AM MEDS PASSED. PT REPORTS FEELING "JITTERY". ADVISED PT JUST GOT BREATHING TREATMENT AND MORNING MEDS. WILL KEEP AN EYE ON TELE AND O2 SAT. VOCATIONAL REHABILITATION SUPERVISOR NOIFIED.
--- NOTE | 2022-12-16 08:20 | NUR ---
pt call light going off. i career based intervention coordinator answer. pt stated "i dont feel good, i have the jitters and my heart rate is higher". i career based intervention coordinator in room. pt stated she has chest pain, she is light headed, dizzy, and does not feel well. rn notified.
--- NOTE | 2022-12-16 08:30 | NUR ---
ARRIVED IN PT ROOM. PT STILL FEELING UNWELL. PT REPORTS DIZZINESS AND FEELING LIGHTHEADED. HR IS AFIB 130S-160S. PT APPEARING PALE AND TACHYPNIC. MD NOTIFIED DURING MORNING MEETING. VERBAL ORDERS FOR 5MG LOPRESSOR GIVEN AND 12 LEAD EKG.
--- NOTE | 2022-12-16 08:50 | NUR ---
AT BEDSIDE. IV LOPRESSOR GIVEN. MD INSTRUCTED TO PULL TWO ADDITIONAL DOSES OF IV LOPRESSOR 5MG. PT STILL APPEARS TO BE IN AFIB RVR.
--- NOTE | 2022-12-16 09:10 | NUR ---
TWO ADDITIONAL DOSES OF LOPRESSOR PUSED PER MD INSTRUCTIONS 5 MINUTES APART. ORDERS TO TRANSFER TO CCU.
--- NOTE | 2022-12-16 09:35 | NUR ---
REPORT GIVEN TO AMA ALCANTAR IN CCU. PT IS SETTLED IN BED.
[2022-12-16 09:45] VITALS: BP 109/66
--- NOTE | 2022-12-16 09:51 | NUR ---
PT TRANSPORTED TO CCU VIA BED WITH MS RN ASSISTANCE - PT AAO, TALKING IN COMPLETE SENTENCES, AWARE OF SITUATION AND POC DISCUSSED WITH MD, ALL QUESTIONS ANSWERED. PT REMAINS IN AFIB AT THIS TIME, RATE CONTROLLED AFTER IV LOPRESSOR DOSES. ADDITIONAL IV ACCESS ATTEMPTS BY ULTRASOUND IN PROGRESS.
--- NOTE | 2022-12-16 10:13 | NUR ---
PT IN PROCESS OF BEING MOVED TO FROM MS TO CCU. NO VISIT. SAID SILENT PRAYER FOR HEALING AND ILLUMINATION OF PATH FORWARD.
--- NOTE | 2022-12-16 11:05 | NUR ---
RT COLLECTED RAPID COVID 19 SWAB AT THIS TIME WITH NO COMPLICATIONS.
--- NOTE | 2022-12-16 11:05 | NUR ---
PT RESTING IN BED WITH PARTNER AT BEDSIDE - MD IN ROOM UPDATING PT ON PLAN OF TRANSFER. CONSENT SINGED FOR SURGEON TO PLACE CENTERAL LINE PER MD REQUEST BEFORE TRANSFER.
[2022-12-16 11:06] LABS: BUN/CREATININE RATIO 25.68 (6.0-28.6); CALCIUM 10.1 mg/dL (8.5-10.1); CREATININE, SERUM 1.83 mg/dL (0.55-1.02)
[2022-12-16 11:30] VITALS: BP 121/65
[2022-12-16 11:42] LABS: INFLUENZA B NAA NEGATIVE (NEGATIVE); RESPIRATORY SYNCYTIAL VIR NAA NEGATIVE (NEGATIVE)
[2022-12-16 12:00] VITALS: BP 112/74
--- NOTE | 2022-12-16 12:00 | NUR ---
Centeral line placed at bedside by Dr. Ambrosio following policy and procedure. Pt tolerated well. VS post procedure stable.
--- NOTE | 2022-12-16 12:16 | NUR ---
CXR TO CONFIRM PLACEMENT COMPLETE-READ BY MD AT BEDSIDE, READY FOR USE. CBG OBTAINED - 257.
--- NOTE | 2022-12-16 12:41 | NUR ---
EMS CREW ARRIVED FOR TRANSPORT, PT CONSENTED FOR TRANSPORT TO [facility]. PT PLACED ON EMS MONITORING EQUIPMENT, WAS THEN MOVED TO EMS STRETCHER WITHOUT ISSUE. PT BELONINGS WITH PT AND PT SPOUSE. ALL QUESTIONS ANSWERED.
--- NOTE | 2022-12-16 12:51 | NUR ---
REPORT CALLED TO [facility] CCU - ALL QUESTIONS ANSWERED
--- NOTE | 2022-12-16 23:18 | EKG ---
[facility] [address] [facility] [place] [address] Signed Atrial fibrillation with rapid ventricular response ST \T\ T wave abnormality, consider lateral ischemia Abnormal ECG When compared with ECG of 15-DEC-2022 08:32, No significant change was found Confirmed by Albina Hilliard MD () on 12/16/2022 11:17:56 PM Electronically Signed By: ALBINA HILLIARD MD 12/16/22 2318 PATIENT NAME: JENNA MACKENZIE MARTA Electrocardiogram DATE OF : 62 PHYSICIAN: ALBINA HILLIARD MD REPORT #: [id number] REPORT IS CONFIDENTIAL AND NOT TO BE RELEASED WITHOUT AUTHORIZATION
--- NOTE | 2022-12-17 13:25 | CONS ---
[facility] [address] [place], [place] [address] Signed DATE OF CONSULTATION: 12/16/2022 REQUESTING PHYSICIAN: Dr. Pedroza. PROBLEM: Need for central venous access, persistent refractory hypokalemia and other problems. HISTORY OF PRESENT ILLNESS: This 62-year-old white woman was admitted to the emergency room yesterday. She presented with atrial fibrillation and congestive heart failure. Atrial fibrillation was considered to be new onset. The patient was known to me from several weeks ago at which time she was admitted with gastrointestinal bleeding ultimately determined to be related to severe hemorrhagic hemorrhoids requiring emergency hemorrhoidectomy. She has since recovered from that well and has no further GI bleeding. Her presentation to the emergency room prompted admission to the intensive care unit. She was profoundly hypokalemic. Extreme measures for repleting the hypokalemia have been undertaken with little success. Her magnesium level was found to be normal. In addition, she has a right-sided pleural effusion. Consultation was made primarily for central venous access. The patient was anticipated for transfer to another institution for further management of her medical problems this afternoon. REVIEW OF SYSTEMS: The patient does feel somewhat short of breath. She has had no hemoptysis. Denies hematemesis or blood per rectum. PHYSICAL EXAMINATION: GENERAL: Morbidly obese white woman. She is accompanied by her . She is on 2 L nasal cannula oxygen, saturation is 92%. The patient has a fair amount of anxiety and is somewhat resistant to positioning to a supine position. NECK: Shows no tracheal deviation. She is very plethoric and the right sternocleidomastoid muscle is palpable. Clavicles are nondeformed. CHEST: Shows no evidence of tachypnea at this time. ABDOMEN: Quite morbidly obese with enormous pannus extended to the side of the bed. EXTREMITIES: Show a fair amount of obesity, but no specific edema that I can tell at this time. ASSESSMENT: Electronically Signed By: EVELINE GAN MD 12/17/22 1325 PATIENT NAME: JENNA MACKENZIE CONSULTATION DATE OF : 62 REPORT #: [id number] PHYSICIAN: EVELINE GAN MD PCP: KIERAN YOUNG MD REPORT IS CONFIDENTIAL AND NOT TO BE RELEASED WITHOUT AUTHORIZATION [facility] [address] [place] [id number] Signed The patient needs intravenous access for additional medication administration. I discussed with the patient and her who was present about the risk of bleeding, infection, pneumothorax, should a subclavian approach be required, and other unforeseen complications related to placement of the catheter. She understands and wished to proceed. It would be preferred to do a right internal jugular approach as it is less likely to result in complications, those were possible as well. Understanding this they wish to proceed. MD ILIANA Velasco/[place] /[id number] cc: DR. KIERAN PEDROZA MD Copies: ~ Electronically Signed By: EVELINE GAN MD 12/17/22 1325 PATIENT NAME: JENNA MACKENZIE MARTA CONSULTATION DATE OF : 62 REPORT #: [id number] PHYSICIAN: EVELINE GAN MD PCP: KIERAN YOUNG MD REPORT IS CONFIDENTIAL AND NOT TO BE RELEASED WITHOUT AUTHORIZATION
--- NOTE | 2022-12-17 13:25 | OR ---
[facility] [address] [place], [place] [address] Signed DATE OF OPERATION: 12/16/2022 SURGEON: Eveline Gan MD PREOPERATIVE DIAGNOSES: 1. Hypokalemia. 2. Congestive heart failure. 3. New onset atrial fibrillation. 4. Morbid obesity. 5. Large right pleural effusion. POSTOPERATIVE DIAGNOSES: 1. Hypokalemia. 2. Congestive heart failure. 3. New onset atrial fibrillation. 4. Morbid obesity. 5. Large right pleural effusion. PROCEDURE: Right internal jugular central venous catheter placement. ANESTHESIA: A 1% lidocaine. INDICATIONS FOR THE PROCEDURE: This 62-year-old morbidly obese white woman is known to me from the past several weeks ago, having undergone emergency hemorrhoidectomy for gastrointestinal bleeding. She presented to the emergency room yesterday, where she was noted to have new onset atrial fibrillation, congestive heart failure, and right pleural effusion as well as resistant hypokalemia. I have been requested by Dr. Pedroza, hospitalist to place a central venous catheter as she is anticipating transfer of the person later in the day. I reviewed with the patient in the presence of her , the risk of bleeding, infection, pneumothorax, subclavian approach be required, and other unforeseen complications related to catheter placement. She understands and wished to proceed. FINDINGS: Dark nonpulsatile blood was noted from the right internal jugular vein. The catheter was placed without complication. Postprocedure chest x-ray shows good position and good function of the catheter. Electronically Signed By: EVELINE GAN MD 12/17/22 1325 PATIENT NAME: JENNA MACKENZIE OPERATIVE REPORT DATE OF : 62 REPORT #: [id number] PHYSICIAN: EVELINE GAN MD PCP: KIERAN YOUNG MD REPORT IS CONFIDENTIAL AND NOT TO BE RELEASED WITHOUT AUTHORIZATION [facility] [address] [place] [id number] Signed DESCRIPTION OF PROCEDURE: Though, the patient was hesitant to be in a supine position, she was manipulated into that position and no Trendelenburg bed position was undertaken. Right neck and subclavian area was prepared with chlorhexidine solution and draped sterilely with the Arrow Blue tip PowerPort triple-lumen catheter kit. A 1% lidocaine was injected directly over the right sternocleidomastoid muscle. With the Seldinger technique, using sterile technique per hospital protocol, gloves, gown, etc., the right internal jugular vein was easily accessed showing dark nonpulsatile blood. A flexible J-wire was passed down the needle, the needle was removed. The site was incised with an #11 blade and dilated with enclosed blue dilator device. The previously inspected and irrigated Arrow triple-lumen PowerPort catheter was passed directly over the wire. The wire was removed. Aspiration on the distal port showed good withdrawal of dark nonpulsatile blood and easy flushing with saline. The catheter was withdrawn a few centimeters curled in the appropriate configuration and secured to the skin with the enclosed collar device. Two-point security the catheter was undertaken. A gel type dressing was applied over the assembly after cleansing the skin. A postprocedure chest x-ray was performed showing good position of the catheter in the superior vena cava. The right sizable pleural effusion was noted as well. She tolerated the procedure well. ESTIMATED BLOOD LOSS: Minimal. Eveline Gan MD JM/MODL /[id number] cc: Dr. ARMINDA Young Electronically Signed By: EVELINE GAN MD 12/17/22 1325 PATIENT NAME: JENNA MACKENZIE OPERATIVE REPORT DATE OF : 62 REPORT #: [id number] PHYSICIAN: EVELINE GAN MD PCP: KIERAN YOUNG MD REPORT IS CONFIDENTIAL AND NOT TO BE RELEASED WITHOUT AUTHORIZATION [facility] [address] [place] [id number] Signed Copies: ~ Electronically Signed By: EVELINE GAN MD 12/17/22 1325 PATIENT NAME: JENNA MACKENZIE OPERATIVE REPORT DATE OF : 62 REPORT #: [id number] PHYSICIAN: EVELINE GAN MD PCP: KIERAN YOUNG MD REPORT IS CONFIDENTIAL AND NOT TO BE RELEASED WITHOUT AUTHORIZATION
== END 2022-12-16 12:40 | disposition short-term general hospital (02) ==
LOC: ED 07:10 → MS 07:12 → CCU 12-16 09:40
PROVIDERS: Student in an Organized Health Care Education/Training Program; ADMIT Family Medicine; ATTEND Family Medicine
DX: E87.6 Hypokalemia (principal); E11.9 Type 2 diabetes mellitus without complications; I48.91 Unspecified atrial fibrillation; E03.9 Hypothyroidism, unspecified; J90 Pleural effusion, not elsewhere classified; I50.32 Chronic diastolic (congestive) heart failure; Z20.822 Contact with and (suspected) exposure to COVID-19; Z88.0 Allergy status to penicillin; E66.01 Morbid (severe) obesity due to excess calories; Z68.42 Body mass index [BMI] 45.0-49.9, adult
CPT/HCPCS: 36415; 71045; 73560; 80048; 80053; 81001; 83735; 84100; 84484; 85025; 85060; 87088; 87502; 93005; 93010; 94640; 94762; A9270; C9803; J1815; J3480; J3490; J7030; J7060; U0002

== ENCOUNTER 2022-12-27 08:03 | Emergency (ER) | payer BC ==
[~2022-12-27] VITALS: Ht 170.2 cm; Wt 134.7 kg
--- OUTSIDE RECORDS SUMMARY | ~2022-12-27 | XMS | Continuity of Care Document ---
Demographics + + + | Address | [address] | | | [place] [address] | + + + | Preferred Language | Unknown | + + + | Marital Status | | + + + | Christian Affiliation | Unknown | + + + | Race | White | + + + | Ethnic Group | Not or | + + + Author + + + | Author | [facility] | + + + | Organization | [facility] | + + + | Address | [address] | | | [place] [address] | + + + | Phone | | + + + Care Team Providers + + + + | Care Marine Designer Name | Role | Phone | + [...] 00:00 | No vaccine administered | [facility] | + + + + Medications + + + + | date | description | facility | + + + + | 2022-10-15 00:00 | OXYCODONE HCL | [facility] | + + + + | 2022-10-15 00:00 | oxycodone hydrochloride 5 | [facility] | | | MG Oral Tablet | | + + + + | 2022-12-01 00:00 | APIXABAN | [facility] | + + + + | 2022-12-10 00:00 | APIXABAN | [facility] | + + + + | 2022-12-16 00:00 | APIXABAN | [facility] | + + + + | 2022-10-15 00:00 | 0.5 ML dulaglutide 3 MG/ML | [facility] | | | Auto-Injector [Trulicity] | | + + + + | 2022-10-27 00:00 | DULAGLUTIDE | [facility] | + + + + | 2022-12-01 00:00 | DULAGLUTIDE | [facility] | + + + + | 2022-12-10 00:00 | DULAGLUTIDE | [facility] | + + + + | 2022-12-16 00:00 | DULAGLUTIDE | [facility] | + + + + | 2022-10-15 00:00 | Microencapsulated | [facility] | | | potassium chloride 20 MEQ | | | | Extended Release | | + + + + | 2022-10-15 00:00 | POTASSIUM CHLORIDE | [facility] | + + + + | 2022-10-15 00:00 | POTASSIUM CHLORIDE | [facility] | + + + + | 2022-10-15 00:00 | POTASSIUM CHLORIDE | [facility] | + + + + | 2022-12-01 00:00 | POTASSIUM CHLORIDE | [facility] | + + + + | 2022-12-01 00:00 | POTASSIUM CHLORIDE | [facility] | + + + + | 2022-12-01 00:00 | POTASSIUM CHLORIDE | [facility] | + + + + | 2022-10-15 00:00 | 30 ACTUAT fluticasone | [facility] | | | furoate 0.1 MG/ACTUAT / | | | | umeclidinium 0 | | + + + + | 2022-10-27 00:00 | | [facility] | | | Fluticasone/Umeclidin/Vilan | | | | ter | | + + + + | 2022-12-01 00:00 | | [facility] | | | Fluticasone/Umeclidin/Vilan | | | | ter | | + + + + | 2022-12-10 00:00 | | [facility] | | | Fluticasone/Umeclidin/Vilan | | | | ter | | + + + + | 2022-12-16 00:00 | | [facility] | | | Fluticasone/Umeclidin/Vilan | | | | ter | | + + + + | 2021-09-27 00:00 | lisinopril 20 mg / | [facility] | | | hydrochlorothiazide 25 mg | [facility]iop[facility] | | | oral tablet | | + + + + | 2022-10-27 00:00 | NAPROXEN | [facility] | + + + + | 2022-12-01 00:00 | NAPROXEN | [facility] | + + + + | 2022-12-10 00:00 | NAPROXEN | [facility] | + + + + | 2022-12-16 00:00 | NAPROXEN | [facility] | + + + + | 2022-10-15 00:00 | naproxen 500 MG Oral | [facility] | | | Tablet | | + + + + | 2022-10-15 00:00 | TORSEMIDE | [facility] | + + + + | 2022-10-15 00:00 | TORSEMIDE | [facility] | + + + + | 2022-10-15 00:00 | TORSEMIDE | [facility] | + + + + | 2022-12-01 00:00 | TORSEMIDE | [facility] | + + + + | 2022-12-01 00:00 | TORSEMIDE | [facility] | + + + + | 2022-12-01 00:00 | TORSEMIDE | [facility] | + + + + | 2022-10-15 00:00 | torsemide 20 MG Oral | [facility] | | | Tablet | | + + + + | 2022-10-27 00:00 | MAGNESIUM OXIDE | [facility] | + + + + | 2022-10-27 00:00 | MAGNESIUM OXIDE | [facility] | + + + + | 2022-10-27 00:00 | MAGNESIUM OXIDE | [facility] | + + + + | [...] + | 2022-10-27 00:00 | HYDROCHLOROTHIAZIDE | [facility] | + + + + | 2022-12-01 00:00 | HYDROCHLOROTHIAZIDE | [facility] | + + + + | 2022-12-10 00:00 | HYDROCHLOROTHIAZIDE | [facility] | + + + + | 2022-12-16 00:00 | HYDROCHLOROTHIAZIDE | [facility] | + + + + | 2022-10-15 00:00 | hydrochlorothiazide 25 MG | [facility] | | | Oral Tablet | | + + + + | 2022-10-27 00:00 | PIOGLITAZONE HCL | [facility] | + + + + | 2022-12-01 00:00 | PIOGLITAZONE HCL | [facility] | + + + + | 2022-12-10 00:00 | PIOGLITAZONE HCL | [facility] | + + + + | 2022-12-16 00:00 | PIOGLITAZONE HCL | [facility] | + + + + | 2022-10-15 00:00 | pioglitazone 45 MG Oral | [facility] | | | Tablet | | + + + + | 2022-10-27 00:00 | Pregabalin | [facility] | + + + + | 2022-12-01 00:00 | Pregabalin | [facility] | + + + + | 2022-12-10 00:00 | Pregabalin | [facility] | + + + + | 2022-12-16 00:00 | Pregabalin | [facility] | + + + + | 2022-10-15 00:00 | pregabalin 150 MG Oral | [facility] | | | Capsule | | + + + + | 2022-12-10 00:00 | NITROFURANTOIN MONOHYD | [facility] | | | MACROCR | | + + + + | 2022-12-10 00:00 | NITROFURANTOIN MONOHYD | [facility] | | | MACROCR | | + + + + | 2022-10-15 00:00 | 24 HR diltiazem | [facility] | | | hydrochloride 120 MG | | | | Extended Release Oral C | | + + + + | 2022-10-15 00:00 | DILTIAZEM HCL | [facility] | + + + + | 2022-10-15 00:00 | DILTIAZEM HCL | [facility] | + + + + | 2022-10-15 00:00 | DILTIAZEM HCL | [facility] | + + + + | 2022-10-27 00:00 | ALBUTEROL SULFATE | [facility] | + + + + | 2022-12-01 00:00 | ALBUTEROL SULFATE | [facility] | + + + + | 2022-12-10 00:00 | ALBUTEROL SULFATE | [facility] | + + + + | 2022-12-16 00:00 | ALBUTEROL SULFATE | [facility] | + + + + | 2022-10-15 00:00 | [id number] 200 ACTUAT | [facility] | | | albuterol 0.09 MG/ACTUAT | | | | Metered Dose I | | + + + + | 2022-10-27 00:00 | Rosuvastatin Calcium | [facility] | + + + + | 2022-12-01 00:00 | Rosuvastatin Calcium | [facility] | + + + + | 2022-12-10 00:00 | Rosuvastatin Calcium | [facility] | + + + + | 2022-12-16 00:00 | Rosuvastatin Calcium | [facility] | + + + + | 2022-10-15 00:00 | rosuvastatin calcium 20 MG | [facility] | | | Oral Tablet | | + + + + | 2022-10-27 00:00 | METFORMIN HCL | [facility] | + + + + | 2022-12-01 00:00 | METFORMIN HCL | [facility] | + + + + | 2022-12-10 00:00 | METFORMIN HCL | [facility] | + + + + | 2022-12-16 00:00 | METFORMIN HCL | [facility] | + + + + | 2022-10-15 00:00 | metformin hydrochloride | [facility] | | | 1000 MG Oral Tablet | | + + + + | 2021-09-27 00:00 | metformin hydrochloride | [facility] | | | 1000 mg oral tablet | [facility] | + + + + | 2022-10-15 00:00 | 24 HR metoprolol succinate | [facility] | | | 25 MG Extended Release | | | | Oral Table | | + + + + | 2022-10-15 00:00 | METOPROLOL SUCCINATE | [facility] | + + + + | 2022-10-15 00:00 | METOPROLOL SUCCINATE | [facility] | + + + + | 2022-10-15 00:00 | METOPROLOL SUCCINATE | [facility] | + + + + | 2022-10-27 00:00 | LEVOTHYROXINE SODIUM | [facility] | + + + + | 2022-12-01 00:00 | LEVOTHYROXINE SODIUM | [facility] | + + + + | 2022-12-10 00:00 | LEVOTHYROXINE SODIUM | [facility] | + + + + | 2022-12-16 00:00 | LEVOTHYROXINE SODIUM | [facility] | + + + + | 2022-10-15 00:00 | levothyroxine sodium 0.137 | [facility] | | | MG Oral Tablet [...] 2022-10-04 00:00 | Atrial fibrillation with | [facility] | | | rapid ventricular response | | + + + + | 2022-10-04 00:00 | Atrial fibrillation with | [facility] | | | rapid ventricular response | | + + + + | 2022-10-04 00:00 | Atrial fibrillation with | [facility] | | | rapid ventricular response | | + + + + | 2022-10-04 00:00 | Pleural effusion | [facility] | + + + + | 2022-10-04 00:00 | Pleural effusion | [facility] | + + + + | 2022-10-04 00:00 | Pleural effusion | [facility] | + + + + | [...] + + + | 2022-10-04 16:42 | DRAPERY INSPECTOR (CURRENT) USE OF | [facility] | | | ANTICOAGULANTS | | + + + + | 2022-10-04 16:42 | [facility] (CURRENT) USE OF | [facility] | | | INSULIN | | + + + + | 2022-10-04 16:42 | HORMONE REPLACEMENT | [facility] | | | THERAPY | | + + + + | 2022-10-04 16:42 | OTHER DRAPERY INSPECTOR (CURRENT) | [facility] | | | DRUG [...] | 2022-10-25 00:00 | Morbid obesity | [facility] | + + + + | 2022-10-25 00:00 | Morbid obesity | [facility] | + + + + | 2022-10-25 00:00 | Morbid obesity | [facility] | + + + + | 2022-10-25 00:00 | Acute diastolic congestive | [facility] | | | heart failure | | + + + + | 2022-10-25 00:00 | Acute diastolic congestive | [facility] | | | heart failure | | + + + + | 2022-10-25 00:00 | Acute diastolic congestive | [facility] | | | heart failure | | + + + + | 2022-10-25 00:00 | Acute respiratory failure | [facility] | | | with hypercapnia | | + + + + | 2022-10-25 00:00 | Acute respiratory failure | [facility] | | | with hypercapnia | | + + + + | 2022-10-25 00:00 | Acute respiratory failure | [facility] | | | with hypercapnia | [...] + + + | 2022-10-25 13:36 | DRAPERY INSPECTOR (CURRENT) USE OF | [facility] | | | ANTICOAGULANTS | | + + + + | 2022-10-25 13:36 | DRAPERY INSPECTOR (CURRENT) USE OF | [facility] | | | INSULIN | | + + + + | 2022-10-25 13:36 | HORMONE REPLACEMENT | [facility] | | | THERAPY | | + + + + | 2022-10-25 13:36 | OTHER [facility] (CURRENT) | [facility] | | | DRUG [...] 2022-11-28 00:00 | Congestive heart failure | [facility] | + + + + | 2022-11-28 00:00 | Congestive heart failure | [facility] | + + + + | 2022-11-28 00:00 | Congestive heart failure | [facility] | + + + + | [...] + + + | 2022-11-28 14:22 | [facility] (CURRENT) USE OF | [facility] | | | INHALED STEROIDS | | + + + + | 2022-11-28 14:22 | HORMONE REPLACEMENT | [facility] | | | THERAPY | | + + + + | 2022-11-28 14:22 | OTHER [facility] (CURRENT) | [facility] | | | DRUG [...] | 2022-12-10 00:00 | Uncontrolled diabetes | [facility] | | | mellitus | | + + + + | 2022-12-10 00:00 | Uncontrolled diabetes | [facility] | | | mellitus | | + + + + | 2022-12-10 00:00 | Urinary tract infection | [facility] | + + + + | 2022-12-10 00:00 | Urinary tract infection | [facility] [...] + + + | 2022-12-10 10:39 | DRAPERY INSPECTOR (CURRENT) USE OF | [facility] | | | ANTICOAGULANTS | | + + + + | 2022-12-10 10:39 | DRAPERY INSPECTOR (CURRENT) USE OF | [facility] | | | ORAL HYPOGLYCEMIC DRUGS | | + + + + | 2022-12-10 10:39 | OTHER [facility] (CURRENT) | [facility] | | | DRUG THERAPY | | + + + + | 2022-12-10 10:39 | ALLERGY STATUS TO | [facility] | | | PENICILLIN | | + + + + | 2022-12-10 10:39 | DEPENDENCE ON SUPPLEMENTAL | [facility] | | | OXYGEN | | + + + + | 2022-12-15 00:00 | Hypokalemia | [facility] | + + + + | 2022-12-15 07:12 | HYPOTHYROIDISM, | [facility] | | | UNSPECIFIED | | + + + + | 2022-12-15 07:12 | TYPE 2 DIABETES MELLITUS | [facility] | | | WITHOUT COMPLICATIONS | | + + + + | 2022-12-15 07:12 | MORBID (SEVERE) OBESITY | [facility] | | | DUE TO EXCESS CALORIES | | + + + + | 2022-12-15 07:12 | HYPOKALEMIA | [facility] | + + + + | 2022-12-15 07:12 | UNSPECIFIED ATRIAL | [facility] | | | FIBRILLATION | | + + + + | 2022-12-15 07:12 | CHRONIC DIASTOLIC | [facility] | | | (CONGESTIVE) HEART FAILURE | | + + + + | 2022-12-15 07:12 | Other diseases of the | [facility] | | | pleura (J90-J94) | | + + + + | 2022-12-15 07:12 | BODY MASS INDEX (BMI) | [facility] | | | 45.0-49.9, ADULT | | + + + + | 2022-12-15 07:12 | ALLERGY STATUS TO | [facility] | | | PENICILLIN | | + + + + Procedures + + + + | date | description | facility | + + + + | 2022-10-13 00:00 | EXCISION OF HEMORRHOIDAL | [facility] | | | PLEXUS, OPEN APPROACH | | + + + + | 2022-10-11 00:00 | EXCISION OF SIGMOID COLON, | [facility] | | | ENDO, DIAGN | | + + + + | 2022-10-13 00:00 | Hemorrhoidectomy | [facility] | + + + + | 2022-10-11 00:00 | TRANSFUSE NONAUT RED BLOOD | [facility] | | | CELLS IN PERIPH VEIN, PERC | | | | | | + + + + | 2022-10-11 00:00 | Colonoscopy with biopsy of | [facility] | | | colon | | + + + + | 2022-11-28 00:00 | ASSISTANCE WITH | [facility] | | | RESPIRATORY VENTILATION, | | | | <24 HRS, CPAP | | + + + + | 2022-11-28 00:00 | ASSISTANCE WITH | [facility] | | | RESPIRATORY VENTILATION, | [...] | | (unavailable | | [facility] [phone] | | | | ) | | [facility] | [id number] | | | + + + + + + + + + | Result panel 4 | + + + + + + + + + | | (no date) | [facility] | | (missing) | (missing) | | (unavailable | | [facility] | [phone] | | | | ) | | [...] 91 | + + + + + + + + + | | 2022-11-17 | [facility] | SEE NOTE | (missing) | (missing) | | (unavailable | 11:30:07 [facility] | | | | + + + + + + + + + | Result panel 92 | + + + + + + + + + | | 2022-11-17 | [facility] | Pleural | (missing) | (missing) | | (unavailable | 11::07 | [facility] fluid | | | | ) | | Hospital | | | | + + + + + + + + + | Result panel 93 | + + + + + +-------+ [...] 101 | + + + + + +------+ + + | | 2022-11-28 | [facility] | 13 | (missing) | (missing) | | (unavailable | 11:32:07 | [facility] | | | | + + + +------+ + + + + | Result panel 102 | + + + + + +------+ + + | | 2022-11-28 | [facility] | 98 | (missing) | (missing) | | (unavailable | 11:32:07 [facility] | | | | + + + +------+ + + + + | Result panel 103 | + + + + + +--------+ + + | | 2022-11-28 | [facility] | 18.3 | (missing) | (missing) | | (unavailable | 11:32:07 [facility] | | | | + + + +--------+ + + + + | Result panel 104 | + + + + + +-------+---------+ + | | 2022-12-01 | [facility] | 2.5 | mg/dL | (missing) | | (unavailable | 05:25:07 [facility] | | | | + + + +-------+---------+ + + + | Result panel 105 [...] 106 | + + + + + + [...] 108 | + + + + + +-------+ [...] 111 | + + + + + +--------+ [...] 115 | + + + + + +--------+ + + | | 2022-12-01 | [facility] | 66.2 | (missing) | (missing) | | (unavailable | 05:25:07 [facility] | | | | + + + +--------+ + + + + | Result panel 116 | + + + + + +--------+ + + | | 2022-12-01 | [facility] | 24.4 | (missing) | (missing) | | (unavailable | 05:25:07 [facility] | | | | + + + +--------+ + + + + | Result panel 117 | + + + + + +-------+ + + | | 2022-12-01 | [facility] | 7.5 | (missing) | (missing) | | (unavailable | 05:25:07 [facility] | | | | + + + +-------+ + + + + | Result panel 118 | + + + + + +-------+ + + | | 2022-12-01 | [facility] | 0.9 | (missing) | (missing) | | (unavailable | 05:25:07 [facility] | | | | + + + +-------+ + + + + | Result panel 119 | + + + + + +-------+ + + | | 2022-12-01 | [facility] | 1.0 | (missing) | (missing) | | (unavailable | 05:25:07 | [facility] | | | | + + + +-------+ + + + + | Result panel 120 | + + + + + +-------+---------+ + | | 2022-12-01 | [facility] | 264 | mg/dL | (missing) | | (unavailable | 05:25:07 [facility] | | | | + + + +-------+---------+ + + + | Result panel 121 | + + + + + +------+---------+ + | | 2022-12-01 | [facility] | 40 | mg/dL | (missing) | | (unavailable | 05:25:07 [facility] | | | | + + + +------+---------+ + + + | Result panel 122 | + + + + + +--------+---------+ + | | 2022-12-01 | [facility] | 1.58 | mg/dL | (missing) | | (unavailable | 05:25:07 [facility] | | | | + + + +--------+---------+ + + + | Result panel 123 | + + + + + +------+ + + | | 2022-12-01 | [facility] | 37 | (missing) | (missing) | | (unavailable | 05:25:07 [facility] | | | | + + + +------+ + + + + | Result panel 124 | + + + + + +---------+ + + | | 2022-12-01 | [facility] | 25.31 | (missing) | (missing) | | (unavailable | 05:25:07 [facility] | | | | + + + +---------+ + + + + | Result panel 125 | + + + + + +-------+ [...] 127 | + + + + + +------+ + + | | 2022-12-01 | [facility] | 92 | (missing) | (missing) | | (unavailable | 05:25:07 | [facility] | | | | + + + +------+ + + + + | Result panel 128 | + + + + + +------+ + + | | 2022-12-01 | [facility] | 44 | (missing) | (missing) | | (unavailable | 05:25:07 [facility] | | | | + + + +------+ + + + + | Result panel 129 [...] 130 | + + + + + +--------+---------+ + | | 2022-12-01 | [facility] | 10.1 | mg/dL | (missing) | | (unavailable | 05:25:07 [facility] | | | | + + + +--------+---------+ + + + | Result panel 131 | + + + + + +-------+---------+ + | | 2022-12-01 | [facility] | 2.5 | mg/dL | (missing) | | (unavailable | 05:25:07 | [facility] | | | | + + + +-------+---------+ + + + | Result panel 132 | + + + + + +-------+ + + | | 2022-12-01 | [facility] | 369 | (missing) | (missing) | | (unavailable | 12:09:07 | [facility] | | | | + + + +-------+ + + + + | Result panel 133 | + + + + + +---------+ + + | | 2022-12-10 | [facility] | 7.488 | (missing) | (missing) | | (unavailable | 10:58:07 [facility] | | | | + + + +---------+ + + + + | Result panel 134 | + + + + + +-------+---------+ + | | 2022-12-10 | [facility] | 279 | mg/dL | (missing) | | (unavailable | 10:58:07 [facility] | | | | + + + +-------+---------+ + + + | Result panel 135 | + + + + + +------+---------+ + | | 2022-12-10 | [facility] | 53 | mg/dL | (missing) | | (unavailable | 10:58:07 [facility] | | | | + + + +------+---------+ + + + | Result panel 136 | + + + + + +--------+---------+ + | | 2022-12-10 | [facility] | 1.63 | mg/dL | (missing) | | (unavailable | 10:58:07 [facility] | | | | + + + +--------+---------+ + + + | Result panel 137 | + + + + + +------+ + + | | 2022-12-10 | [facility] | 36 | (missing) | (missing) | | (unavailable | 10:58:07 [facility] | | | | + + + +------+ + + + + | Result panel 138 | + + + + + +---------+ + + | | 2022-12-10 | [facility] | 32.51 | (missing) | (missing) | | (unavailable | 10:58:07 [facility] | | | | + + + +---------+ + + + + | Result panel 139 | + + + + + +-------+ + + | | 2022-12-10 | [facility] | 131 | (missing) | (missing) | | (unavailable | 10:58:07 [facility] | | | | + + + +-------+ + + + + | Result panel 140 | + + + + + +-------+ + + | | 2022-12-10 | [facility] | 3.0 | (missing) | (missing) | | (unavailable | 10:58:07 [facility] | | | | + + + +-------+ + + + + | Result panel 141 | + + + + + +------+ + + | | 2022-12-10 | [facility] | 84 | (missing) | (missing) | | (unavailable | 10:58:07 [facility] | | | | + + + +------+ + + + + | Result panel 142 | + + + + + +------+ + + | | 2022-12-10 | [facility] | 47 | (missing) | (missing) | | (unavailable | 10:58:07 [facility] | | | | + + + +------+ + + + + | Result panel 143 | + + + + + +-------+ + + | | 2022-12-10 | [facility] | 3.0 | (missing) | (missing) | | (unavailable | 10:58:07 [facility] | | | | + + + +-------+ + + + + | Result panel 144 | + + + + + +--------+---------+ + | | 2022-12-10 | [facility] | 10.2 | mg/dL | (missing) | | (unavailable | 10:58:07 [facility] | | | | + + + +--------+---------+ + + + | Result panel 145 | + + + + + +-------+ [...] 148 | + + + + + +--------+ + + | | 2022-12-10 | [facility] | 0.51 | (missing) | (missing) | | (unavailable | 10:58:07 [facility] | | | | + + + +--------+ + + + + | Result panel 149 | + + + + + +-------+ + + | | 2022-12-10 | [facility] | 2.7 | (missing) | (missing) | | (unavailable | 10:58:07 [facility] | | | | + + + +-------+ + + + + | Result panel 150 | + + + + + +------+ + + | | 2022-12-10 | [facility] | 26 | (missing) | (missing) | | (unavailable | 10:58:07 | [facility] | | | | + + + +------+ + + + + | Result panel 151 | + + + + + +------+ + + | | 2022-12-10 | [facility] | 18 | (missing) | (missing) | | (unavailable | 10:58:07 | [facility] | | | | + + + +------+ + + + + | Result panel 152 [...] 153 | + + + + + + + + + | | 2022-12-10 | [facility] | NEGATIVE | (missing) | (missing) | | (unavailable | 10:58:07 | [facility] | | | | + + + + + + + + + | Result panel 154 | + + + + + +---------+ + + | | 2022-12-10 | [facility] | 7.488 | (missing) | (missing) | | (unavailable | 10:58:07 | [facility] | | | | + + + +---------+ + + + + | Result panel 155 | + + + + + + + + + | | 2022-12-10 | [facility] | NEGATIVE | (missing) | (missing) | | (unavailable | 10:58:07 | [facility] | | | | + + + + + + + + + | Result panel 156 | + + + + + +-------+ + + | | 2022-12-10 | [facility] | 8.7 | (missing) | (missing) | | (unavailable | 10:58:07 [facility] | | | | + + + +-------+ + + + + | Result panel 157 | + + + + + + + + + | | 2022-12-10 | [facility] | SEE COMMENT | (missing) | (missing) | | (unavailable | 10:58:07 [facility] | | | | + + + + + + + + + | Result panel 158 | + + + + + +--------+ + + | | 2022-12-10 | [facility] | 3.74 | (missing) | (missing) | | (unavailable | 10:58:07 [facility] | | | | + + + +--------+ + + + + | Result panel 159 | + + + + + +-------+ + + | | 2022-12-10 | [facility] | 9.5 | (missing) | (missing) | | (unavailable | 10:58:07 [facility] | | | | + + + +-------+ + + + + | Result panel 160 | + + + + + +--------+ + + | | 2022-12-10 | [facility] | 29.8 | (missing) | (missing) | | (unavailable | 10:58:07 [facility] | | | | + + + +--------+ + + + + | Result panel 161 | + + + + + +--------+ [...] 165 | + + + + + +-------+ + + | | 2022-12-10 | [facility] | 253 | (missing) | (missing) | | (unavailable | 10:58:07 | [facility] | | | | + + + +-------+ + + + + | Result panel 166 | + + + + + +--------+ + + | | 2022-12-10 | [facility] | 82.6 | (missing) | (missing) | | (unavailable | 10:58:07 | [facility] | | | | + + + +--------+ + + + + | Result panel 167 | + + + + + +-------+ + + | | 2022-12-10 | [facility] | 8.7 | (missing) | (missing) | | (unavailable | 10:58:07 | [facility] | | | | + + + +-------+ + + + + | Result panel 168 | + + + + + +-------+ + + | | 2022-12-10 | [facility] | 8.5 | (missing) | (missing) | | (unavailable | 10:58:07 | [facility] | | | | + + + +-------+ + + + + | Result panel 169 | + + + + + +-------+ + + | | 2022-12-10 | [facility] | 0.0 | (missing) | (missing) | | (unavailable | 10:58:07 | [facility] | | | | + + + +-------+ + + + + | Result panel 170 | + + + + + +-------+ + + | | 2022-12-10 | [facility] | 0.2 | (missing) | (missing) | | (unavailable | [facility]58:07 [facility] | | | | + + + +-------+ + + + + | Result panel 171 | + + + + + + [...] 173 | + + + + + +------+ + + | | 2022-12-10 | [facility] | 4+ | (missing) | (missing) | | (unavailable | [facility]:07 [facility] | | | | + + + +------+ + + + + | Result panel 174 | + + + + + + + + + | | 2022-12-10 | [facility] | NONE SEEN | (missing) | (missing) | | (unavailable | [facility]02[facility]07 [facility] | | | + + + + + + + + + | Result panel 175 | + + + + + +------+ [...] 177 | + + + + + + + + + | | 2022-12-10 | [facility] | YELLOW | (missing) | (missing) | | (unavailable | [facility]02:07 [facility] | | | | + + + + + + + + + | Result panel 178 | + + + + + +---------+ + + | | 2022-12-10 | [facility] | CLEAR | (missing) | (missing) | | (unavailable | [facility]02:07 [facility] | | | + + + +---------+ + + + + | Result panel 179 | + + + + + + [...] 182 | + + + + + +---------+ [...] 184 | + + + + + +-------+ + + | | 2022-12-10 | [facility] | 6.5 | (missing) | (missing) | | (unavailable | [facility]02:07 [facility] | | | + + + +-------+ + + + + | Result panel 185 | + + + + + +-------+ [...] + + + + | Result panel 187 | + + + + + + + + + | | 2022-12-10 | [facility] | POSITIVE | (missing) | (missing) | | (unavailable | [facility]02:07 [facility] | | | + + + + + + + + + | Result panel 188 | + + + + + +---------+ + + | | 2022-12-10 | [facility] | TRACE | (missing) | (missing) | | (unavailable | [facility]02:07 [facility] | | | + + + +---------+ + + + + | Result panel 189 | + + + + + +-------+ + + | | 2022-12-10 | [facility] | 4-6 | (missing) | (missing) | | (unavailable | [facility]02:07 [facility] | | | + + + +-------+ + + + + | Result panel 190 | + + + + + +---------+ + + | | 2022-12-10 | [facility] | 12-20 | (missing) | (missing) | | (unavailable | [facility]02:07 [facility] | | | + + + +---------+ + + + + | Result panel 191 | + + + + + +-------+ + + | | 2022-12-10 | [facility] | 259 | (missing) | (missing) | | (unavailable | 11:16:07 [facility] | | | + + + +-------+ + + + + | Result panel 192 | + + + + + + + + + | | 2022-12-15 | [facility] | YELLOW | (missing) | (missing) | | (unavailable | 16:57:07 [facility] | | | + + + + + + + + + | Result panel 193 | + + + + + + + + + | | 2022-12-15 | [facility] | NORMAL | (missing) | (missing) | | (unavailable | [facility]:57:07 [facility] | | | | + + + + + + + + + | Result panel 194 | + + + + + + + + + | | 2022-12-15 | [facility] | NEGATIVE | (missing) | (missing) | | (unavailable | [facility]57:07 [facility] | | | + + + + + + + + + | Result panel 195 | + + + + + +---------+ + + | | 2022-12-15 | [facility] | SMALL | (missing) | (missing) | | (unavailable | [facility]57:07 [facility] | | | + + + +---------+ + + + + | Result panel 196 | + + + + + +---------+ + + | | 2022-12-15 | [facility] | 12-20 | (missing) | (missing) | | (unavailable | [facility]57:07 [facility] | | | + + + +---------+ + + + + | Result panel 197 | + + + + + +---------+ + + | | 2022-12-15 | [facility] | 12-20 | (missing) | (missing) | | (unavailable | [facility]57:07 [facility] | | | + + + +---------+ + + + + | Result panel 198 | + + + + + + + + + | | 2022-12-15 | [facility] | SQUAMOUS 1+ | (missing) | (missing) | | (unavailable | 16:57:07 [facility] | | | | + + + + + + + + + | Result panel 199 | + + + + + + + + + | | 2022-12-15 | [facility] | NONE SEEN | (missing) | (missing) | | (unavailable | [facility]:57:07 [facility] | | | + + + + + + + + + | Result panel 200 | + + + + + +--------+ + + | | 2022-12-15 | [facility] | RARE | (missing) | (missing) | | (unavailable | [facility]57:07 [facility] | | | + + + +--------+ + + + + | Result panel 201 | + + + + + + + + + | | 2022-12-15 | [facility] | NONE SEEN | (missing) | (missing) | | (unavailable | [facility]57:07 [facility] | | | + + + + + + + + + | Result panel 202 | + + + + + +-------+ + + | | 2022-12-15 | [facility] | Yes | (missing) | (missing) | | (unavailable | [facility]57:07 [facility] | | | + + + +-------+ + + + + | Result panel 203 | + + + + + +---------+ + + | | 2022-12-15 | [facility] | CLEAR | (missing) | (missing) | | (unavailable | [facility]57:07 [facility] | | | + + + +---------+ + + + + | Result panel 204 | + + + + + + + + + | | 2022-12-15 | [facility] | CLEAN CATCH | (missing) | (missing) | | (unavailable | [facility]57:07 [facility] | | | + + + + + + + + + | Result panel 205 | + + + + + + + + + | | 2022-12-15 | [facility] | NEGATIVE | (missing) | (missing) | | (unavailable | [facility]57:07 [facility] | | | + + + + + + + + + | Result panel 206 | + + + + + + + + + | | 2022-12-15 | [facility] | NEGATIVE | (missing) | (missing) | | (unavailable | [facility]57:07 [facility] | | | + + + + + + + + + | Result panel 207 | + + + + + + + + + | | 2022-12-15 | [facility] | NEGATIVE | (missing) | (missing) | | (unavailable | [facility]57:07 [facility] | | | + + + + + + + + + | Result panel 208 | + + + + + +---------+ + + | | 2022-12-15 | [facility] | 1.010 | (missing) | (missing) | | (unavailable | [facility]57:07 [facility] | | | + + + +---------+ + + + + | Result panel 209 | + + + + + +---------+ + + | | 2022-12-15 | [facility] | LARGE | (missing) | (missing) | | (unavailable | [facility]57:07 [facility] | | | + + + +---------+ + + + + | Result panel 210 | + + + + + +-------+ + + | | 2022-12-15 | [facility] | 7.0 | (missing) | (missing) | | (unavailable | [facility]57:07 [facility] | | | + + + +-------+ + + + + | Result panel 211 | + + + + + +------+ + + | | 2022-12-15 | [facility] | 30 | (missing) | (missing) | | (unavailable | [facility]57:07 [facility] | | | + + + +------+ + + + + | Result panel 212 | + + + + + +-------+ + + | | 2022-12-16 | [facility] | 7.7 | (missing) | (missing) | | (unavailable | 05:47:07 [facility] | | | | + + + +-------+ + + + + | Result panel 213 | + + + + + + + + + | | 2022-12-16 | [facility] | SEE | (missing) | (missing) | | (unavailable | 05:47:07 [facility] COM[facility] | | [facility] | [facility] | | | | + + + + + + + + + | Result panel 214 | + + + + + +--------+ + + | | 2022-12-16 | [facility] | 3.89 | (missing) | (missing) | | (unavailable | 05:47:07 [facility] | | | | + + + +--------+ + + + + | Result panel 215 | + + + + + +-------+ + + | | 2022-12-16 | [facility] | 9.6 | (missing) | (missing) | | (unavailable | 05:47:07 [facility] | | | | + + + +-------+ + + + + | Result panel 216 | + + + + + +--------+ + + | | 2022-12-16 | [facility] | 31.2 | (missing) | (missing) | | (unavailable | 05:47:07 [facility] | | | | + + + +--------+ + + + + | Result panel 217 | + + + + + +--------+ + + | | 2022-12-16 | [facility] | 80.4 | (missing) | (missing) | | (unavailable | 05:47:07 [facility] | | | | + + + +--------+ + + + + | Result panel 218 | + + + + + +--------+ + + | | 2022-12-16 | [facility] | 24.8 | (missing) | (missing) | | (unavailable | 05:47:07 [facility] | | | | + + + +--------+ + + + + | Result panel 219 | + + + + + +--------+ + + | | 2022-12-16 | [facility] | 30.8 | (missing) | (missing) | | (unavailable | 05:47:07 [facility] | | | + + + +--------+ + + + + | Result panel 220 | + + + + + +--------+ + + | | 2022-12-16 | [facility] | 21.3 | (missing) | (missing) | | (unavailable | 05:47:07 [facility] | | | + + + +--------+ + + + + | Result panel 221 | + + + + + +-------+ + + | | 2022-12-16 | [facility] | 274 | (missing) | (missing) | | (unavailable | 05:47:07 [facility] | | | + + + +-------+ + + + + | Result panel 222 | + + + + + +--------+ + + | | 2022-12-16 | [facility] | 70.6 | (missing) | (missing) | | (unavailable | 05:47:07 [facility] | | | + + + +--------+ + + + + | Result panel 223 | + + + + + +--------+ + + | | 2022-12-16 | [facility] | 21.5 | (missing) | (missing) | | (unavailable | [facility]47:07 [facility] | | | + + + +--------+ + + + + | Result panel 224 | + + + + + +-------+ + + | | 2022-12-16 | [facility] | 6.4 | (missing) | (missing) | | (unavailable | 05[facility]47:07 [facility] | | | + + + +-------+ + + + + | Result panel 225 | + + + + + +-------+ + + | | 2022-12-16 | [facility] | 0.7 | (missing) | (missing) | | (unavailable | [facility]47:07 [facility] | | | + + + +-------+ + + + + | Result panel 226 | + + + + + +-------+ + + | | 2022-12-16 | [facility] | 0.8 | (missing) | (missing) | | (unavailable | [facility]47:07 [facility] | | | + + + +-------+ + + + + | Result panel 227 | + + + + + +-------+---------+ + | | 2022-12-16 | [facility] | 4.0 | mg/dL | (missing) | | (unavailable | 05:47:07 [facility] | | | | + + + +-------+---------+ + + + | Result panel 228 | + + + + + +-------+---------+ + | | 2022-12-16 | [facility] | 2.7 | mg/dL | (missing) | | (unavailable | 05:47:07 [facility] | | | | + + + +-------+---------+ + + + | Result panel 229 | + + + + + +-------+ + + | | 2022-12-16 | [facility] | 8.4 | (missing) | (missing) | | (unavailable | 05[facility]47:07 [facility] | | | | + + + +-------+ + + + + | Result panel 230 | + + + + + +-------+ + + | | 2022-12-16 | [facility] | 2.9 | (missing) | (missing) | | (unavailable | [facility]47:07 [facility] | | | | + + + +-------+ + + + + | Result panel 231 | + + + + + +-------+ + + | | 2022-12-16 | [facility] | 5.5 | (missing) | (missing) | | (unavailable | [facility]47:07 [facility] | | | + + + +-------+ + + + + | Result panel 232 | + + + + + +--------+ + + | | 2022-12-16 | [facility] | 0.53 | (missing) | (missing) | | (unavailable | [facility]47:07 [facility] | | | | + + + +--------+ + + + + | Result panel 233 | + + + + + +-------+ + + | | 2022-12-16 | [facility] | 1.8 | (missing) | (missing) | | (unavailable | [facility]47:07 [facility] | | | + + + +-------+ + + + + | Result panel 234 | + + + + + +------+ + + | | 2022-12-16 | [facility] | 21 | (missing) | (missing) | | (unavailable | [facility]47:07 [facility] | | | | + + + +------+ + + + + | Result panel 235 | + + + + + +------+ + + | | 2022-12-16 | [facility] | 16 | (missing) | (missing) | | (unavailable | [facility]47:07 [facility] | | | | + + + +------+ + + + + | Result panel 236 | + + + + + +-------+ + + | | 2022-12-16 | [facility] | 104 | (missing) | (missing) | | (unavailable | 05[facility]47:07 [facility] | | | + + + +-------+ + + + + | Result panel 237 | + + + + + +-------+---------+ + | | 2022-12-16 | [facility] | 310 | mg/dL | (missing) | | (unavailable | 10:40:07 [facility] | | | | + + + +-------+---------+ + + + | Result panel 238 | + + + + + +------+---------+ + | | 2022-12-16 | [facility] | 47 | mg/dL | (missing) | | (unavailable | [facility]40:07 [facility] | | | | + + + +------+---------+ + + + | Result panel 239 | + + + + + +--------+---------+ + | | 2022-12-16 | [facility] | 1.83 | mg/dL | (missing) | | (unavailable | [facility]40:07 [facility] | | | | + + + +--------+---------+ + + + | Result panel 240 | + + + + + +------+ + + | | 2022-12-16 | [facility] | 31 | (missing) | (missing) | | (unavailable | [facility]40:07 [facility] | | | | + + + +------+ + + + + | Result panel 241 | + + + + + +---------+ + + | | 2022-12-16 | [facility] | 25.68 | (missing) | (missing) | | (unavailable | [facility]40:07 [facility] | | | + + + +---------+ + + + + | Result panel 242 | + + + + + +-------+ + + | | 2022-12-16 | [facility] | 132 | (missing) | (missing) | | (unavailable | [facility]40:07 [facility] | | | | + + + +-------+ + + + + | Result panel 243 | + + + + + +-------+ + + | | 2022-12-16 | [facility] | 3.0 | (missing) | (missing) | | (unavailable | [facility]40:07 [facility] | | | + + + +-------+ + + + + | Result panel 244 | + + + + + +------+ + + | | 2022-12-16 | [facility] | 85 | (missing) | (missing) | | (unavailable | [facility]40:07 [facility] | | | + + + +------+ + + + + | Result panel 245 | + + + + + +------+ + + | | 2022-12-16 | [facility] | 45 | (missing) | (missing) | | (unavailable | [facility]40:07 [facility] | | | | + + + +------+ + + + + | Result panel 246 | + + + + + +-------+ + + | | 2022-12-16 | [facility] | 5.0 | (missing) | (missing) | | (unavailable | [facility]40:07 [facility] | | | | + + + +-------+ + + + + | Result panel 247 | + + + + + +--------+---------+ + | | 2022-12-16 | [facility] | 10.1 | mg/dL | (missing) | | (unavailable | [facility]40:07 [facility] | | | | + + + +--------+---------+ + + + | Result panel 248 | + + + + + +--------+ + + | | 2022-12-16 | [facility] | 18.2 | (missing) | (missing) | | (unavailable | [facility]40:07 [facility] | | | + + + +--------+ + + + + | Result panel 249 | + + + + + + + + + | | 2022-12-16 | [facility] | NEGATIVE | (missing) | (missing) | | (unavailable | [facility]02:07 [facility] | | | | + + + + + + + + + | Result panel 250 | + + + + + + + + + | | 2022-12-16 | [facility] | NEGATIVE | (missing) | (missing) | | (unavailable | [facility]02:07 [facility] | | | | + + + + + + + + + | Result panel 251 | + + + + + + + + + | | 2022-12-16 | [facility] | NEGATIVE | (missing) | (missing) | | (unavailable | [facility]02:07 [facility] | | | | + + + + + + + + + | Result panel 252 | + + + + + + + + + | | 2022-12-16 | [facility] | NEGATIVE | (missing) | (missing) | | (unavailable | [facility]:02:07 [facility] | | | | + + + + + + + + + | Result panel 253 | + + + + + +-------+ + + | | 2022-12-16 | [facility] | 257 | (missing) | (missing) | | (unavailable | 12:19:07 [facility] | | | | [...] 00:00 | Unknown if ever smoked | [facility] | + + + + | 2022-10-27 00:00 | Unknown if ever smoked | [facility] | + + + + | 2022-12-01 00:00 | Unknown if ever smoked | [facility] | + + + + | 2022-12-10 00:00 | Unknown if ever smoked | [facility] | + + + + | 2022-12-16 00:00 | Unknown if ever smoked | [...] 294.01 | lb | + + + +---------+ | 2022-12-15 00:00 | BMI | 44.6 | kg/m2 | + + + +---------+ | 2022-12-15 00:00 | height_metric | 170.18 | cm | + + + +---------+ | 2022-12-15 00:00 | height_standard | 67 | in | + + + +---------+ | 2022-12-15 00:00 | weight_metric | 129.13 | kg | + + + +---------+ | 2022-12-15 00:00 | weight_standard | 284.68 | lb | + + + +---------+ | 2022-12-16 00:00 | BP_diastolic | 74 | mmHg | + + + +---------+ | 2022-12-16 00:00 | BP_systolic | 112 | mmHg | + + + +---------+ | 2022-12-16 00:00 | heart_rate | 101 | /min | + + + +---------+ | 2022-12-16 00:00 | o2_saturation | 89 | % | + + + +---------+ | 2022-12-16 00:00 | respiration_rate | 21 | /min | + + + +---------+ | 2022-12-16 00:00 | temperature_metric | 36.61 | C | | | | | | + + + +---------+ | 2022-12-16 00:00 | | 97.9 | F | | | temperature_standar | | | | | d | | | + + + +---------+"
[2022-12-27 08:43] LABS: BASOPHILS 0.6 % (0-2); EOSINOPHILS 0.4 % (0-6); HEMATOCRIT 29.6 % (35.0-50.0); LYMPHOCYTES 18.1 % (24-44); MCH 24.2 (27-36); MCHC 30.3 g/dl (30-36); MCV 79.8 fl (81-99); MONOCYTES 4.5 % (0-12); NEUTROPHILS 76.4 % (39-80); PLATELET COUNT 285 K/uL (140-440); RBC 3.71 M/ul (4.3-5.7); RDW 21.1 (10.5-15.0)
[2022-12-27 08:59] LABS: ALBUMIN 2.9 g/dL (3.4-5.0); ALBUMIN/GLOBULIN RATIO 0.57 (1.1-2.4); ANION GAP 9.7 (7-21); BILIRUBIN, TOTAL 0.9 ng/dL (0.2-1.0); BUN/CREATININE RATIO 25.71 (6.0-28.6); CALCIUM 9.8 mg/dL (8.5-10.1); CREATININE, SERUM 1.05 mg/dL (0.55-1.02); MAGNESIUM 1.5 mg/dL (1.8-2.4); POTASSIUM 3.7 mmol/L (3.5-5.1)
[2022-12-27 10:05] LABS: INFLUENZA B NAA NEGATIVE (NEGATIVE); RESPIRATORY SYNCYTIAL VIR NAA NEGATIVE (NEGATIVE)
[2022-12-27] MEDS ORDERED: JARDIANCE10 MG PO (12:44)
[2022-12-27 13:55] VITALS: BP 135/112
--- NOTE | 2022-12-28 05:38 | EKG ---
[facility] [address] [facility] [place] [address] Signed Atrial fibrillation Abnormal ECG When compared with ECG of 16-DEC-2022 08:33, ST no longer depressed in Lateral leads Nonspecific T wave abnormality has replaced inverted T waves in Lateral leads Confirmed by RIKI MCWILLIAMS MD ([id number]) on 12/28/2022 5:38:04 AM Electronically Signed By: RIKI MCWILLIAMS 12/28/22 0538 PATIENT NAME: JENNA MACKENZIE MARTA Electrocardiogram DATE OF : 62 PHYSICIAN: RIKI MCWILLIAMS REPORT #: [id number] REPORT IS CONFIDENTIAL AND NOT TO BE RELEASED WITHOUT AUTHORIZATION
== END 2022-12-27 13:55 | disposition home or self-care (01) ==
LOC: ED 08:03
PROVIDERS: Emergency Medicine
DX: I11.0 Hypertensive heart disease with heart failure (principal); I50.9 Heart failure, unspecified; J44.9 Chronic obstructive pulmonary disease, unspecified; E66.01 Morbid (severe) obesity due to excess calories; E11.9 Type 2 diabetes mellitus without complications; E03.9 Hypothyroidism, unspecified; Z88.0 Allergy status to penicillin; Z79.899 Other long term (current) drug therapy; Z79.01 Long term (current) use of anticoagulants; Z79.84 Long term (current) use of oral hypoglycemic drugs; Z20.822 Contact with and (suspected) exposure to COVID-19
CPT/HCPCS: 32555; 36415; 71045; 80053; 83735; 83880; 85025; 85060; 87502; 93005; 93010; 99285-25; C9803; J1940; J3475; U0002

== ENCOUNTER 2023-01-09 11:46 | Emergency (ER) | payer BC ==
[~2023-01-09] VITALS: Ht 170.2 cm; Wt 133.0 kg
--- NOTE | ~2023-01-09 | CONS ---
[facility] [address] [place], [place] [address] Draft DATE OF CONSULTATION: 01/09/2023 TIME: 05:25 p.m. PROBLEM: Recurrent right pleural effusion, known congestive heart failure, recent history of refractory hypokalemia. HISTORY OF PRESENT ILLNESS: This quite morbidly obese, BMI 45.9, 62-year-old woman is a patient of Dr. Luana Young. The patient is known to me originally on December 16, 2022, at which time consultation and placement of a right internal jugular central venous catheter was needed for congestive heart failure, new onset atrial fibrillation with RVR, morbid obesity and a large right pleural effusion as well as refractory hypokalemia. She was transferred from this institution on that basis under the care of a terra cotta mason. She additionally has noted to me from the past having suffered significant gastrointestinal bleeding ultimately found to be related to hemorrhoids; a colonoscopy performed on October 13, 2022 was accomplished in the lateral decubitus position and was curative for rectal bleeding problem. Notably, colonoscopy had been performed previously during that hospitalization, which showed no other lesion to account for bleeding. The patient has been under the care of Dr. Luana Young, her primary care physician as well as a terra cotta mason at [facility] and additional studies are being undertaken. Since she does have atrial fibrillation, it sounds as though she will be undergoing outpatient cardioversion in the future. She presented today to the emergency room was evaluated by Dr. Uribe and subsequently consulted on by Dr. Giovani Crockett, hospitalist. She has been identified with a right pleural effusion, which apparently was recurrent. She underwent a right-sided thoracentesis in the emergency room on November and about 1 L of fluid was withdrawn. From what I gather, a postprocedure chest x-ray was not obtained. She came to the emergency room today with subjective sense of shortness of breath, though admits that she has had far worse shortness of breath in the past. Evaluation by Dr. Crockett noted she did not qualify for admission based on her vital signs, lab studies and clinical picture. Scheduling of an outpatient thoracentesis versus emergency room thoracentesis was considered. Some concern that she might not make her appointment because of her might be busy that day was described as a reason to possibly do thoracentesis at this time. At this point, the patient has short of breath when ambulating, but not particularly short of breath at rest. She has had no hemoptysis. No exacerbation of underlying PATIENT NAME: JENNA MACKENZIE MARTA CONSULTATION DATE OF : 62 REPORT #: [id number] PHYSICIAN: EVELINE GAN MD PCP: LUANA YOUNG MD REPORT IS CONFIDENTIAL AND NOT TO BE RELEASED WITHOUT AUTHORIZATION [facility] [address] [place], [place] [address] Draft congestive heart failure or other symptom. The patient is noted to be on medications including Eliquis, albuterol nebulizer, diltiazem, Trulicity, Synthroid, metformin, metoprolol, pregabalin and torsemide 20 mg tablet 40 mg b.i.d. She is also taking magnesium oxide and to my examination of her record not taking potassium supplementation despite her history of refractory hypokalemia. PHYSICAL EXAMINATION: GENERAL: Very obese white woman who is sitting up and does not appear dyspneic at this time. She does not appear to be in distress. VITAL SIGNS: Bedside pulse oximetry is 98%, FiO2 is 4 L nasal cannula. She has home oxygen, it is noted. Blood pressure is 120/68. Respiratory rates 16-23. Pulse is 71-82. NECK: Trachea is midline. She has no jugular venous distention that is noted, though she does have obesity that confounds the exam to some degree. CHEST: Shows no tachypnea at this time. Chest x-ray was reviewed showing a pleural effusion, similar to that that she had on the 27 of December. ASSESSMENT AND PLAN: I reviewed with the patient the relative merits of thoracentesis at this time. Though she does have baseline shortness of breath, she does not appear to have true dyspnea nor struggling to breathe at this time or underlying congestive heart failure may account for much of her symptoms and certainly is considered to account for all of her tissue related to the pleural effusion. I discussed with Dr. Uribe a possible need for increasing her diuretic. However, he advises me that reticence in the part of his managing team to manipulating the diuretic plan is noted on the basis of her prior hypokalemia. Certainly, if that is the case, I would expect that she would be on a potassium supplement, which upon review of her hospital record, an outpatient medication list, she seems not to be on a potassium supplement. I will need to review that further with the emergency room physician, Dr. Uribe. I do note that her potassium chloride was canceled on December 01 for reasons that are unclear. I did additionally discuss with her the hazards of thoracentesis, particularly while on Eliquis. These do include bleeding and of course, pneumothorax. At this point, I think it is largely a matter of weighing the risk and benefits of thoracentesis. Currently, her benefit may be rather limited considering that she is not really dyspneic at this time and is not in any way, struggling to breathe. She has home oxygen already in place. A thoracentesis by image guidance through Radiology is certainly an option and it is offered for . Though she may have some convenience difficulty organizing a ride simple convenience for thoracentesis this evening is less justifiable rather than a true medical necessity. PATIENT NAME: JENNA MACKENZIE CONSULTATION DATE OF : 62 REPORT #: [id number] PHYSICIAN: EVELINE GAN MD PCP: LUANA YOUNG MD REPORT IS CONFIDENTIAL AND NOT TO BE RELEASED WITHOUT AUTHORIZATION [facility] [address] [place], [place] [address] Draft If the patient has had worsening shortness of breath and so forth, then we would revisit the idea of thoracentesis again. I did discuss with Dr. Uribe the concept of increasing her diuretic schedule so as to make some impact on her manifestations of congestive heart failure including pleural effusion and he will be looking into that further. At this point, we will hold off on thoracentesis, mindful that symptoms could worsen to true dyspnea for which a thoracentesis would then be performed. MD ILIANA Velasco/MODL /[id number] cc: MD Dr. Giovani Romero MD Copies: ~ PATIENT NAME: JENNA MACKENZIE MARTA CONSULTATION DATE OF : 62 REPORT #: [id number] PHYSICIAN: EVELINE GAN MD PCP: LUANA YOUNG MD REPORT IS CONFIDENTIAL AND NOT TO BE RELEASED WITHOUT AUTHORIZATION
[~2023-01-09 11:46] MED LIST changes: +JARDIANCE10 MG PO
[2023-01-09 13:01] LABS: BASOPHILS 0.9 % (0-2); EOSINOPHILS 1.9 % (0-6); HEMATOCRIT 29.3 % (35.0-50.0); MCH 23.9 (27-36); MCHC 30.6 g/dl (30-36); MCV 78.1 fl (81-99); MONOCYTES 6.2 % (0-12); PLATELET COUNT 298 K/uL (140-440); RBC 3.76 M/ul (4.3-5.7); RDW 22.2 (10.5-15.0)
[2023-01-09 13:23] LABS: ALBUMIN/GLOBULIN RATIO 0.6 (1.1-2.4); ANION GAP 11.8 (7-21); CALCIUM 9.6 mg/dL (8.5-10.1); CREATININE, SERUM 1.75 mg/dL (0.55-1.02); MAGNESIUM 1.8 mg/dL (1.8-2.4); POTASSIUM 3.8 mmol/L (3.5-5.1)
[2023-01-09 13:29] LABS: INFLUENZA B NAA NEGATIVE (NEGATIVE); RESPIRATORY SYNCYTIAL VIR NAA NEGATIVE (NEGATIVE)
[2023-01-09 18:28] VITALS: BP 133/63
--- NOTE | 2023-01-10 05:56 | EKG ---
[facility] [address] [facility] [place], [place] [address] Signed Atrial fibrillation Abnormal ECG When compared with ECG of 27-DEC-2022 09:12, No significant change was found Confirmed by RIKI MCWILLIAMS MD ([id number]) on 01/10/2023 5:56:13 AM Electronically Signed By: RIKI MCWILLIAMS 01/10/23 0556 PATIENT NAME: JENNA MACKENZIE MARTA Electrocardiogram DATE OF : 62 PHYSICIAN: RIKI MCWILLIAMS REPORT #: [id number] REPORT IS CONFIDENTIAL AND NOT TO BE RELEASED WITHOUT AUTHORIZATION
== END 2023-01-09 18:34 | disposition home or self-care (01) ==
LOC: ED 11:46
PROVIDERS: Emergency Medicine
DX: J90 Pleural effusion, not elsewhere classified (principal); E66.01 Morbid (severe) obesity due to excess calories; I11.0 Hypertensive heart disease with heart failure; I50.9 Heart failure, unspecified; J44.9 Chronic obstructive pulmonary disease, unspecified; E11.9 Type 2 diabetes mellitus without complications; E03.9 Hypothyroidism, unspecified; I48.91 Unspecified atrial fibrillation; Z88.0 Allergy status to penicillin; Z79.899 Other long term (current) drug therapy; Z79.01 Long term (current) use of anticoagulants; Z79.84 Long term (current) use of oral hypoglycemic drugs; Z20.822 Contact with and (suspected) exposure to COVID-19; Z68.42 Body mass index [BMI] 45.0-49.9, adult
CPT/HCPCS: 36415; 71045; 80053; 83735; 83880; 85025; 85060; 87502; 93005; 93010; U0002

== ENCOUNTER 2024-03-14 15:23 | Emergency (ER) | payer BC ==
[~2024-03-14] VITALS: Ht 170.2 cm; Wt 123.7 kg
[2024-03-14] MEDS ORDERED: POTASSIUM CHLORIDE 20 MEQ/15 ML CUP PO ONE (16:00)
[2024-03-14] MEDS ORDERED: CARVEDILOL6.25 MG PO (16:10)
[2024-03-14] MEDS ORDERED: METOLAZONE5 MG PO (16:10)
[2024-03-14] MEDS ORDERED: POTASSIUM CHLO20 ME2 PO (16:11)
[2024-03-14] MEDS ORDERED: LANTUS SOL100 UNIT/1 SUB-Q (16:11)
[2024-03-14] MEDS ORDERED: HUMALOG KW200 UNIT/1 SUB-Q (16:12)
[2024-03-14] MEDS ORDERED: GLUCAGON EMERGEN1 MG INJ (16:12)
[2024-03-14] MEDS ORDERED: TRULICITY3 MG/0.5 M SUB-Q (16:12)
[2024-03-14 16:55] VITALS: BP 132/68
== END 2024-03-14 16:56 | disposition home or self-care (01) ==
LOC: ED 15:23
DX: E87.6 Hypokalemia (principal); I11.0 Hypertensive heart disease with heart failure; I50.9 Heart failure, unspecified; I48.91 Unspecified atrial fibrillation; J44.9 Chronic obstructive pulmonary disease, unspecified; E11.9 Type 2 diabetes mellitus without complications; E78.00 Pure hypercholesterolemia, unspecified; E03.9 Hypothyroidism, unspecified; G47.30 Sleep apnea, unspecified; E66.01 Morbid (severe) obesity due to excess calories; Z68.41 Body mass index [BMI] 40.0-44.9, adult; Z88.0 Allergy status to penicillin; Z79.02 Long term (current) use of antithrombotics/antiplatelets; Z79.4 Long term (current) use of insulin; Z79.84 Long term (current) use of oral hypoglycemic drugs; Z79.85 Long-term (current) use of injectable non-insulin antidiabetic drugs; Z79.890 Hormone replacement therapy; Z79.899 Other long term (current) drug therapy
CPT/HCPCS: 99283; A9270

== ENCOUNTER 2024-06-03 10:14 | Emergency (ER) | payer BC ==
[~2024-06-03] VITALS: Ht 170.2 cm; Wt 130.2 kg
[~2024-06-03 10:14] MED LIST changes: +CARVEDILOL6.25 MG PO; +GLUCAGON EMERGEN1 MG INJ; +HUMALOG KW200 UNIT/1 SUB-Q; +LANTUS SOL100 UNIT/1 SUB-Q; +METOLAZONE5 MG PO; +POTASSIUM CHLO20 ME2 PO; +TRULICITY3 MG/0.5 M SUB-Q
[2024-06-03 10:28] LABS: BASOPHILS 0.7 % (0-2); HEMATOCRIT 37.4 % (35.0-50.0); HEMOGLOBIN 11.9 g/dL (12.0-18.0); LYMPHOCYTES 30.7 % (24-44); MCH 25.8 (27-36); MCHC 31.9 g/dl (30-36); MONOCYTES 6.6 % (0-12); PLATELET COUNT 205 K/uL (140-440); RBC 4.62 M/ul (4.3-5.7); RDW 18.8 (10.5-15.0)
[2024-06-03] MEDS ORDERED: PANTOPRAZOLE SO40 MG PO (10:40)
[2024-06-03 10:50] LABS: ALBUMIN 3.2 g/dL (3.4-5.0); ALBUMIN/GLOBULIN RATIO 0.65 (1.1-2.4); ANION GAP 10.2 (7-21); BUN/CREATININE RATIO 24.34 (6.0-28.6); CALCIUM 10.4 mg/dL (8.5-10.1); CREATININE, SERUM 1.52 mg/dL (0.55-1.02); POTASSIUM 3.2 mmol/L (3.5-5.1); PROTEIN, TOTAL 8.1 g/dL (6.4-8.2)
[2024-06-03 12:29] VITALS: BP 125/81
[2024-06-03] MEDS ORDERED: POTASSIUM CHLORIDE 10 MEQ TABCR PO ONE (12:30)
--- NOTE | 2024-06-04 15:04 | EKG ---
[facility] [address] [facility] [place] [address] Signed Atrial flutter Left axis deviation Low voltage QRS Septal infarct , age undetermined Inferior infarct , age undetermined Abnormal ECG When compared with ECG of 25-SEP-2023 00:18, Atrial flutter has replaced Electronic ventricular pacemaker Confirmed by Aashish Salmeron MD ([id number]) on 06/04/2024 3:04:01 PM Electronically Signed By: AASHISH SALMERON MD 06/04/24 1504 PATIENT NAME: JENNA MACKENZIE MARTA Electrocardiogram DATE OF : 62 PHYSICIAN: AASHISH SALMERON MD REPORT #: [id number] REPORT IS CONFIDENTIAL AND NOT TO BE RELEASED WITHOUT AUTHORIZATION
== END 2024-06-03 12:29 | disposition home or self-care (01) ==
LOC: ED 10:14
PROVIDERS: Emergency Medicine
DX: R07.2 Precordial pain (principal); J96.10 Chronic respiratory failure, unspecified whether with hypoxia or hypercapnia; D64.9 Anemia, unspecified; E87.6 Hypokalemia; J90 Pleural effusion, not elsewhere classified; J44.9 Chronic obstructive pulmonary disease, unspecified; E11.22 Type 2 diabetes mellitus with diabetic chronic kidney disease; I13.0 Hypertensive heart and chronic kidney disease with heart failure and stage 1 through stage 4 chronic kidney disease, or unspecified chronic kidney disease; I50.9 Heart failure, unspecified; N18.9 Chronic kidney disease, unspecified; E78.00 Pure hypercholesterolemia, unspecified; E03.9 Hypothyroidism, unspecified; G47.30 Sleep apnea, unspecified; I48.91 Unspecified atrial fibrillation; E66.01 Morbid (severe) obesity due to excess calories; Z99.81 Dependence on supplemental oxygen; Z88.0 Allergy status to penicillin; Z79.4 Long term (current) use of insulin; Z79.85 Long-term (current) use of injectable non-insulin antidiabetic drugs; Z79.890 Hormone replacement therapy; Z79.01 Long term (current) use of anticoagulants; Z79.899 Other long term (current) drug therapy
CPT/HCPCS: 36415; 71045; 80053; 83735; 83880; 84484; 85025; 93005; 93010; 99285-25; A9270

== ENCOUNTER 2024-10-13 18:10 | Emergency (ER) | payer BC ==
[~2024-10-13] VITALS: Ht 170.2 cm; Wt 129.4 kg
[~2024-10-13 18:10] MED LIST changes: +PANTOPRAZOLE SO40 MG PO
[2024-10-13 18:35] LABS: BASOPHILS 0.9 % (0.1-1.2); EOSINOPHILS 2.2 % (0.7-5.8); HEMATOCRIT 38.4 % (34.1-44.9); HEMOGLOBIN 11.5 g/dL (11.2-15.7); LYMPHOCYTES 28.2 % (19.3-51.7); MCH 24.1 PG (25.6-32.2); MCHC 29.9 g/dL (32.2-35.5); MCV 80.5 fL (79.4-94.8); MONOCYTES 6.2 % (4.7-12.5); NEUTROPHILS 62.2 % (34.0-71.1); PLATELET COUNT 268 K/uL (182-369); RBC 4.77 M/uL (3.93-5.22)
[2024-10-13 18:47] LABS: INR 1.22 (0.80-1.30); PROTIME 14.9 Sec (11.2-14.2)
[2024-10-13 18:56] LABS: ALBUMIN 3.2 g/dL (3.4-5.0); ALBUMIN/GLOBULIN RATIO 0.68 (1.1-2.4); ANION GAP 9.2 (7-21); BILIRUBIN, TOTAL 1.1 mg/dL (0.2-1.0); BUN/CREATININE RATIO 24.29 (6.0-28.6); CALCIUM 9.3 mg/dL (8.5-10.1); CREATININE, SERUM 1.77 mg/dL (0.55-1.02); POTASSIUM 3.2 mmol/L (3.5-5.1); PROTEIN, TOTAL 7.9 g/dL (6.4-8.2)
[2024-10-13 21:00] VITALS: BP 130/68
--- NOTE | 2024-10-14 13:04 | EKG ---
[facility] [address] [facility] [address] [place] [address] Signed Junctional rhythm Inferior infarct , age undetermined Anteroseptal infarct , age undetermined ST \T\ T wave abnormality, consider lateral ischemia Abnormal ECG No previous ECGs available Confirmed by Martin Doherty DO ([id number]) on 10/14/2024 1:04:41 PM Electronically Signed By: MARTIN DOHERTY DO 10/14/24 1304 PATIENT NAME: JENNA MACKENZIE MARTA Electrocardiogram DATE OF : 62 PHYSICIAN: MARTIN DOHERTY DO REPORT #: [id number] REPORT IS CONFIDENTIAL AND NOT TO BE RELEASED WITHOUT AUTHORIZATION
== END 2024-10-13 21:00 | disposition home or self-care (01) ==
LOC: ED 18:10
PROVIDERS: Emergency Medicine
DX: R07.9 Chest pain, unspecified (principal); Z88.0 Allergy status to penicillin; J44.9 Chronic obstructive pulmonary disease, unspecified; E11.9 Type 2 diabetes mellitus without complications; G47.33 Obstructive sleep apnea (adult) (pediatric); I50.9 Heart failure, unspecified; I11.0 Hypertensive heart disease with heart failure; I48.91 Unspecified atrial fibrillation; Z79.899 Other long term (current) drug therapy
CPT/HCPCS: 36415; 71045; 80053; 83735; 83880; 84484; 85025; 85610; 93005; 93010; 99285-25